=== PATIENT | male | born 1980 | race Caucasian/White ===

== ENCOUNTER → 2018-08-22 08:13 | Outpatient (CLI) | payer OTHER, SELFPAY ==
--- NOTE | 2018-08-22 08:44 | RAD_ITS ---
STUDY: X-RAY - RIGHT HAND, ATTENTION THIRD FINGER REASON FOR EXAM: Male, 38 years old. Mass of the distal end of the third finger TECHNIQUE: 3 view(s) of the finger were obtained. COMPARISON: None. FINDINGS: Normal metacarpal head. Normal metacarpophalangeal joint. Normal proximal phalanx. Normal middle phalanx. Normal distal phalanx. Normal proximal interphalangeal joint. 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 Mild soft tissue swelling locally along the dorsal edge of the distal third finger at the level of the DIP joint. No associated osseous erosion. RAD/Finger(s) Min 2 Views IMPRESSION: Distal, dorsal third finger localized soft tissue swelling at the DIP joint. No osseous erosion or bony erosions. Electronically Signed: Maurizio Calloway MD at 23:35 EST , Service support ,
[2018-08-22 09:16] LABS: Absolute Lymphocyte Count 1.88 X10^3/ul (0.83-4.51); Absolute Neutrophil Count 1.6 X10^3/uL (2.0-7.7); Basophil# 0.02 X10^3/uL; Basophil% 0.5 % (0-1); Eosinophil# 0.23 X10^3/uL; Eosinophils% 5.6 % (0-5); Hematocrit 44.7 % (40-54); Hemoglobin 14.9 g/dl (13.0-16.5); Lymphocyte # 1.88 X10^3/ul (4.0); Lymphocyte % 45.4 % (19-41); Mean Corp Hgb Conc 33.3 g/gl (32-36); Mean Corpuscular Hgb 30.7 pg (27.0-32.0); Mean Corpuscular Volume 92.2 fL (80-94); Mean Platelet Vol. 10.2 fl (6.2-12.0); Monocyte# 0.42 X10^3/uL; Monocyte% 10.1 % (0-10); Neutrophil # 1.58 X10^3/uL (2.7-7.7); Neutrophil % 38.2 % (47-70); Platelet Count 284 K/mm3 (150-450); RBC Distribution Width CV 12.4 % (11.6-14.6); RBC Distribution Width SD 41.7 fl (35.1-43.9); Red Blood Count 4.85 M/mm3 (4.6-6.2); White Blood Count 4.1 K/mm3 (4.4-11.0)
[2018-08-22 09:19] LABS: POSITIVE COUNT NO; POSITIVE DIFFERENTIAL NO; POSITIVE MORPHOLOGY NO
[2018-08-22 09:33] LABS: Hemoglobin A1c 5.9 % (4.2-6.3)
[2018-08-22 09:47] LABS: ALB/GLOB Ratio 1.1 RATIO (0.9-2.4); AST(SGOT) 21 U/L (15-37); Alanine Aminotransfer ALT/SGPT 37 U/L (16-61); Albumin, Serum 3.7 g/dL (3.2-5.0); Alkaline Phosphatase 64 U/L (45-117); Anion Gap 9 (5-15); BUN 12 mg/dL (7-18); BUN/Creat Ratio 10.4 RATIO (10-20); Calcium,Total 8.6 mg/dL (8.5-10.1); Chloride 106 mmol/L (98-107); Cholesterol 222 mg/dL (200); Creatinine, Serum 1.15 mg/dL (0.70-1.30); EST Glomerular Filtration Rate 75 mL/min (>60); Est Glom Filt Rate - Afr Amer 91 mL/min (>60); Globulin 3.4 g/dL (2.2-4.2); Glucose 94 mg/dL (74-106); High Density Lipoprotein 36 mg/dL; Potassium 4.5 mmol/L (3.5-5.1); Protein, Total 7.1 g/dL (6.4-8.2); Sodium Level 143 mmol/L (136-145); T4 Free Direct 0.76 ng/dL (0.76-1.46); Thyroid Stim Hormone (TSH) 1.85 uIU/mL (0.358-3.74); Triglycerides 222 mg/dL; Very Low Density Lipoprotein 44 mg/dL (5-40)
[2018-08-24 08:46] LABS: Thyroid Peroxidase AB 9 IU/mL (0-34)
== END ==
DX: Z00.00 Encounter for general adult medical examination without abnormal findings (principal); R22.31 Localized swelling, mass and lump, right upper limb; R61 Generalized hyperhidrosis; Z13.1 Encounter for screening for diabetes mellitus
CPT/HCPCS: 36415; 73140; 80053; 80061; 83036; 84439; 84443; 85025; 86376

== ENCOUNTER → 2019-05-08 07:01 | Outpatient (CLI) | payer OTHER, SELFPAY ==
[2019-05-08 08:06] LABS: ALB/GLOB Ratio 1.2 RATIO (0.9-2.4); AST(SGOT) 21 U/L (15-37); Alanine Aminotransfer ALT/SGPT 33 U/L (16-61); Albumin, Serum 3.9 g/dL (3.2-5.0); Alkaline Phosphatase 53 U/L (45-117); Anion Gap 5 (5-15); BUN 16 mg/dL (7-18); BUN/Creat Ratio 15.2 RATIO (10-20); Calcium,Total 8.7 mg/dL (8.5-10.1); Chloride 108 mmol/L (98-107); Cholesterol 225 mg/dL (200); Creatinine, Serum 1.05 mg/dL (0.70-1.30); EST Glomerular Filtration Rate 83 mL/min (>60); Est Glom Filt Rate - Afr Amer 100 mL/min (>60); Globulin 3.2 g/dL (2.2-4.2); Glucose 102 mg/dL (74-106); High Density Lipoprotein 41 mg/dL; Potassium 4.1 mmol/L (3.5-5.1); Protein, Total 7.1 g/dL (6.4-8.2); Sodium Level 140 mmol/L (136-145); Triglycerides 265 mg/dL; Very Low Density Lipoprotein 53 mg/dL (5-40)
== END ==
DX: E78.5 Hyperlipidemia, unspecified (principal)
CPT/HCPCS: 36415; 80053; 80061

== ENCOUNTER → 2019-07-19 16:10 | Outpatient (CLI) | payer OTHER, SELFPAY | PROVIDERS: Referring Provider Otolaryngology Otolaryngology/Facial Plastic Surgery; Visit Provider Otolaryngology Otolaryngology/Facial Plastic Surgery | DX: J32.9 Chronic sinusitis, unspecified (principal) | CPT/HCPCS: 87070; 87077; 87186; 87205 ==

== ENCOUNTER → 2023-01-02 | Outpatient (CLI) | payer OTHER, SELFPAY ==
[2023-01-02 07:59] LABS: Absolute Lymphocyte Count 1.96 X10^3/uL (0.83-4.51); Absolute Neutrophil Count 2.5 X10^3/uL (2.0-7.7); Basophil# 0.04 X10^3/uL; Basophil% 0.7 % (0-1); Eosinophil# 0.27 X10^3/uL; Hematocrit 44.3 % (40-54); Hemoglobin 14.8 g/dL (13.0-16.5); Lymphocyte # 1.96 X10^3/ul (0.83-4.51); Lymphocyte % 36.2 % (19-41); Mean Corp Hgb Conc 33.4 g/dL (32-36); Mean Corpuscular Hgb 31.2 pg (27.0-32.0); Mean Corpuscular Volume 93.3 fL (80-94); Mean Platelet Vol. 10.1 fl (6.2-12.0); Monocyte% 11.1 % (0-10); NRBC Flagged by Analyzer 0 % (0-5); Neutrophil # 2.52 X10^3/uL (2.7-7.7); Neutrophil % 46.4 % (47-70); Platelet Count 280 K/mm3 (150-450); RBC Distribution Width CV 12.4 % (11.6-14.6); RBC Distribution Width SD 42.4 fl (35.1-43.9); Red Blood Count 4.75 M/mm3 (4.6-6.2); White Blood Count 5.4 K/mm3 (4.4-11.0)
[2023-01-02 08:43] LABS: ALB/GLOB Ratio 1.1 RATIO (0.9-2.4); AST(SGOT) 26 U/L (15-37); Alanine Aminotransfer ALT/SGPT 59 U/L (16-61); Albumin, Serum 3.7 g/dL (3.2-5.0); Alkaline Phosphatase 64 U/L (45-117); Anion Gap 6 (5-15); BUN 13 mg/dL (7-18); BUN/Creat Ratio 12.5 RATIO (10-20); Calcium,Total 8.7 mg/dL (8.5-10.1); Chloride 106 mmol/L (98-107); Cholesterol 224 mg/dL (200); Creatinine, Serum 1.04 mg/dL (0.70-1.30); EST Glomerular Filtration Rate 82 mL/min (>60); Est Glom Filt Rate - Afr Amer 100 mL/min (>60); Globulin 3.5 g/dL (2.2-4.2); Glucose 112 mg/dL (74-106); High Density Lipoprotein 39 mg/dL; Potassium 3.9 mmol/L (3.5-5.1); Protein, Total 7.2 g/dL (6.4-8.2); Sodium Level 139 mmol/L (136-145); T4 Total, Thyroxin 8.6 ug/dL (4.5-12.1); Thyroid Stim Hormone (TSH) 2.54 uIU/mL (0.358-3.74); Triglycerides 186 mg/dL; Very Low Density Lipoprotein 37 mg/dL (5-40)
[2023-01-02 09:23] LABS: Hemoglobin A1c 5.7 % (3.8-5.6)
== END | disposition home or self-care (01) ==
PROVIDERS: PCP Nurse Practitioner Adult Health; Referring Provider Nurse Practitioner Adult Health; Visit Provider Nurse Practitioner Adult Health
DX: Z00.00 Encounter for general adult medical examination without abnormal findings (principal)
CPT/HCPCS: 36415; 80053; 80061; 83036; 83525; 84153; 84436; 84443; 85025; G0103

== ENCOUNTER → 2023-10-11 | Outpatient (CLI) | payer OTHER, SELFPAY ==
--- OUTSIDE RECORDS SUMMARY | 2023-10-11 07:11 | XMS RPT_ITS | CCD ---
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 Ge Potter Primary Care Unav ailable Gino Krueger CNP Primary Care Provider [phone] IGNO KRUEGER Primary Care Unavailable BRIANNA SHERWOOD Referring Unavailable BRIANNA SHERWOOD Attending Unavailable BRIANNA SHERWOOD Referring Unavailable BRIANNA SHERWOOD Attending Unavailable GINO KRUEGER Primary Care Unavailable Gino Krueger Attending Unavailable Gino Krueger Attending Unavailable Gino Krueger Attending Unavailable Gino Krueger Attending Unavailable Gino Krueger Attending Unavailable Allergies Allergy Classification Reported Allergen(s) Allergy Type Date of Onset Reaction(s) Facility (4 sources) Penicillin; Translations: [penicillin] Drug Allergy Unknown (qualifier value) [facility] (4 sources) Sulfonamides (Antibiotic); Translations: [sulfa drugs] Drug allergy Unknown (qualifier value) [facility] (2 sources) Penicillins; Translations: [PENICILLINS] Drug Allergy 6 Unknown [facility] (2 sources) Sulfonamides (Antibiotic); Translations: [SULFA (SULFONAMIDE ANTIBIOTICS)] Drug Allergy 6 Unknown [facility] Medications Current Medications Medication Drug Class(es) Dates Sig (Normalized) Sig (Original) lisinopril 10 mg oral tablet (1 source) Angiotensin Converting Enzyme Inhibitor Start: 01-13-2023 take 1 tablet by mouth once daily lisinopril 10 mg Tab 10 mg = 1 tab(s), Oral, Daily, # 30 tab(s), Refills(s) 2, Pharmacy: [id number], 180, cm, 01/13/23 18:26:00 EDT, Height/Length Dosing, 130.8, kg, 01/13/23 18:26:00 EDT, Weight Dosing Start Date: 01/13/23 Status: Ordered losartan potassium 25 mg oral tablet (3 sources) Angiotensin 2 Receptor Michelle Start: 10-06-2023 take 1 tablet by mouth once daily losartan 25 mg Tab 25 mg = 1 tab(s), Oral, Daily, Dry cough with NAEL, # 30 tab(s), Refills(s) 5, Pharmacy: [id number], 180, cm, 10/06/23 18:18:00 EDT, Height/Length Dosing, 131.2, kg, 10/06/23 18:18:00 EDT, Weight Dosing Start Date: 10/06/23 Status: Ordered Completed/Discontinued Medications Medication Drug Class(es) Dates Sig (Normalized) Sig (Original) hypromellose 0.003 mg/mg ophthalmic gel (1 source) Start: 09-23-2020 apply 1 drop(s) into the eye(s) four times daily Artificial Tear, Hypromellose, (SYSTANE GEL) 0.3 % gel Use 1 Drop in the right eye four times daily. 0 09/23/2020 Active Problems Active Problems Problem Classification Problem Date Documented Date Episodic/Chronic Adjustment disorders (1 source) Stress and adjustment reaction; Translations: [Reaction to severe stress, unspecified] Onset: 12-31-2022 Chronic Administrative/social admission (7 sources) Patient encounter status; Translations: [Persons encountering health services in other specified circumstances] Onset: 12-31-2022 Episodic Blindness and vision defects (2 sources) Severe myopia; Translations: [Myopia, bilateral] Onset: 09-23-2020 04-02-2023 Episodic Diabetes mellitus without complication (4 sources) Prediabetes; Translations: [Prediabetes] Onset: 01-13-2023 Episodic Disorders of lipid metabolism (4 sources) Hyperlipidemia; Translations: [Hyperlipidemia, unspecified] Onset: 01-13-2023 Chronic Essential hypertension (4 sources) Essential hypertension; Translations: [Essential (primary) hypertension] Onset: 01-13-2023 Chronic Genitourinary symptoms and ill-defined conditions (7 sources) Increased frequency of urination; Translations: [Frequency of micturition] Onset: 12-31-2022 Episodic Osteoarthritis (1 source) 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 Other circulatory disease (2 sources) Elevated blood-pressure reading without diagnosis of hypertension; Translations: [Elevated blood-pressure reading, without diagnosis of hypertension] Onset: 12-31-2022 Episodic Other circulatory disease (3 sources) Elevated blood pressure 12-31-2022 Episodic Other injuries and conditions due to external causes (1 source) Foreign body in right cornea; Translations: [Foreign body in cornea, right eye, initial encounter] 04-02-2023 Episodic Other lower respiratory disease (5 sources) Snoring; Translations: [Snoring] Onset: 12-31-2022 Episodic Other non-traumatic joint disorders (2 sources) Pain of right elbow joint; Translations: [Pain in right elbow] Onset: 12-31-2022 Episodic Other non-traumatic joint disorders (3 sources) Pain in elbow 12-31-2022 Episodic Other nutritional; endocrine; and metabolic disorders (3 sources) Body mass index 40+ - severely obese; Translations: [Body mass index (BMI) 40.0-44.9, adult] Onset: 12-31-2022 Chronic Other nutritional; endocrine; and metabolic disorders (6 sources) Obesity; Translations: [Obesity, unspecified] Onset: 12-31-2022 Chronic Other nutritional; endocrine; and metabolic disorders (1 source) Abnormal weight gain; Translations: [Abnormal weight gain] Onset: 12-31-2022 Episodic Other nutritional; endocrine; and metabolic disorders (3 sources) Weight gain 12-31-2022 Episodic Other upper respiratory disease (4 sources) Allergic rhinitis; Translations: [Allergic rhinitis, unspecified] Onset: 12-31-2022 Chronic Unclassified (5 sources) Patient encounter status 12-31-2022 Past or Other Problems Problem Classification Problem Date Documented Da te Episodic/Chronic Superficial injury; contusion (1 source) Abrasion of cornea of right eye; Translations: [Injury of conjunctiva and corneal abrasion without foreign body, right eye, initial encounter] Onset: 09-23-2020 09-23-2020 Episodic Results Test Name Value Interpretation Reference Range Facil ity Vital Signs Date Time Vital Sign Value Performing Clinician Faci lity 10-06-2023 18:16-0400 Blood Pressure Location Gino Riedy [facility] 10-06-2023 18:16-0400 Diastolic blood pressure 80 mm[Hg] Gino Riedy [facility] 10-06-2023 18:16-0400 Heart rate 85 /min Gino Riedy [facility] 10-06-2023 18:16-0400 SaO2% (BldA) [Mass fraction] 93 % Gino Riedy [facility] 10-06-2023 18:16-0400 Systolic blood pressure 126 mm[Hg] Gino Riedy [facility] 01-13-2023 18:23-0400 Blood Pressure Location Gino Riedy [facility] 01-13-2023 18:23-0400 Diastolic blood pressure 88 mm[Hg] Gino Riedy [facility] 01-13-2023 18:23-0400 Heart rate 84 /min Gino Riedy [facility] 01-13-2023 18:23-0400 SaO2% (BldA) [Mass fraction] 96 % Gino Riedy [facility] 01-13-2023 18:23-0400 Systolic blood pressure 164 mm[Hg] Gino Riedy [facility] 12-31-2022 09:16-0400 Diastolic blood pressure 86 mm[Hg] Gino Riedy [facility] 12-31-2022 09:16-0400 Mean blood pressure 108 mm[Hg] Gino Riedy [facility] 12-31-2022 09:16-0400 Systolic blood pressure 152 mm[Hg] Gino Riedy [facility] 12-31-2022 08:26-0400 Blood Pressure Location Gino Riedy [facility] 12-31-2022 08:26-0400 Diastolic blood pressure 92 mm[Hg] Gino Riedy [facility] 12-31-2022 08:26-0400 Heart rate 78 /min Gino Riedy [facility] 12-31-2022 08:26-0400 SaO2% (BldA) [Mass fraction] 94 % Gino Riedy [facility] 12-31-2022 08:26-0400 Systolic blood pressure 166 mm[Hg] Gino Riedy [facility] Encounters Encounter Date Encounter Type Care Provider Facility Start: 11-10-2023 ambulatory Gino D Riedy Facilit y:[facility] Start: 10-06-2023 End: 10-07-2023 ambulatory Gino D Riedy Facility:[facility] Start: 10-06-2023 End: 10-06-2023 Patient encounter procedure Gino D Riedy [facility] Start: 04-04-2023 End: 04-04-2023 ambulatory GINO RIEDY Facility:[facility] Start: 04-02-2023 End: 04-02-2023 ambulatory BRIANNA SHERWOOD Facility:[facility] Start: 04-02-2023 End: 04-02-2023 Patient encounter procedure Brianna Sherwood MD Work Phone: Ophthalmology Procedures Date Procedure Procedure Detail Performing Clinician Start: 04-02-2023 Rmvl fb xtrnl eye co rneal w/slit lamp Brianna Sherwood MD Work Phone: Start: 04-02-2023 History of laser ass isted in situ keratomileusis Hx of LASIK Brianna Sherwood MD Work Phone: Appendectomy Gino Krueger Hernia repair Gino Krueger Tonsillectomy Gino Krueger Plan of Treatment Date Care Activity Detail Author Start: 03-28-2023 Influenza vaccination INFLUENZA (#1) [facility] Start: 07-28-2022 DEPRESSION ASSESSMENT DEPRESSION ASS ESSMENT [facility] Start: 2013 LIPID SCREEN LIPID SCREEN [facility] Start: 1997 Urine microalbumin profile DTAP,TDAP ,TD (1 - Tdap) [facility] Start: 1996 HEPATITIS C SCREENING HEPATITIS C SC REENING [facility] Start: 1996 HIV SCREENING HIV SCREENING [facility] Start: 1978 COVID-19 VACCINE (#1) COVID-19 VACCI NE (#1) [facility] Start: 1978 HEPATITIS B (1 of 3 - 3-dose series) HEPATITIS B (1 of 3 - 3-dose series) [facility] Immunizations Immunization Date Immunization Notes Care Provider Fa ashley 12-11-1983 DTaP, unspecified formulation Gino Tyron [facility] 12-11-1983 poliovirus vaccine, unspecified formulation Gino Riedy [facility] 11-10-1980 poliovirus vaccine, unspecified formulation Gino Riedy [facility] 09-09-1979 measles, mumps and rubella virus vaccine Gino Riedy [facility] 01-26-1979 DTaP, unspecified formulation Gino Riedy [facility] 1978 DTaP, unspecified formulation Gino Riedy [facility] 1978 poliovirus vaccine, unspecified formulation Gino Riedy [facility] 1978 DTaP, unspecified formulation Gino Riedy [facility] 1978 poliovirus vaccine, unspecified formulation Gino Riedy [facility] Payers Date Payer Category Payer Private Health Insurance [facility] [employer] [id number] 2019-Present [phone] [address] [place] [address] HMO [id number] 2019 Unknown [id number] 1978 Unknown [id number] 1978 Unknown [id number] 1978 Unknown [id number] 1978 Unknown [id number] 1978 Unknown [id number] 1978 Unknown [id number] Self-pay Social History Date Type Detail Facility Start: 12-31-2022 End: 10-06-2023 Tobacco smoking status Never smoked tobacco (finding) [facility] Tobacco smoking status Never [facility] Start: 04-02-2023 Sex Assigned At Male F [facility] Start: 04-02-2023 Tobacco use and exposure Smokeless tobacco non-user [facility] Start: 04-02-2023 Alcohol intake Current drinke r of alcohol (finding) [facility] Start: 04-02-2023 History of Social function [facility] Start: 09-23-2020 Alcohol [facility] Start: 1980 Sex Assigned At Not on file [facility] Functional Status Date Assessment Result Facility 10-06-2023 Functional Status N/A [facility] 01-13-2023 Functional Status N/A [facility] 12-31-2022 Functional Status N/A [facility] Clinical Notes 12-26-2022 to 10-06-2023 Brianna Sherwood MD - 04/02/2023 4:47 PM EDTLaboratoryLaboratoryLaboratory Note Date & Type Note Facility 10-06-2023 Hospital Discharge instructions Patient Education 10/06/2023 18:19:42 DASH Eating Plan DASH Eating Plan DASH stands for Dietary Approaches to Stop Hypertension. The DASH eating plan is a healthy eating plan that has been shown to: Reduce high blood pressure (hypertension). Reduce your risk for type 2 diabetes, heart disease, and stroke. Help with weight loss. What are tips for following this plan? Reading food labels Check food labels for the amount of salt (sodium) per serving. Choose foods with less than 5 percent of the Daily Value of sodium. Generally, foods with less than 300 milligrams (mg) of sodium per serving fit into this eating plan. To find whole grains, look for the word whole as the first word in the ingredient list. Shopping Buy products labeled as low-sodium or no salt added. Buy fresh foods. Avoid canned foods and pre-made or frozen meals. Cooking Avoid adding salt when cooking. Use salt-free seasonings or herbs instead of table salt or sea salt. Check with your health care provider or pharmacist before using salt substitutes. Do not parsons foods. Cook foods using healthy methods such as baking, boiling, grilling, roasting, and broiling instead. Cook with heart-healthy oils, such as olive, canola, avocado, soybean, or sunflower oil. Meal planning Eat a balanced diet that includes: ?4 or more servings of fruits and 4 or more servings of vegetables each day. Try to fill one-half of your plate with fruits and vegetables. ?6 8 servings of whole grains each day. ?Less than 6 oz (170 g) of lean meat, poultry, or fish each day. A 3-oz (85-g) serving of meat is about the same size as a deck of cards. One egg equals 1 oz (28 g). ?2 3 servings of low-fat dairy each day. One serving is 1 cup (237 mL). ?1 serving of nuts, seeds, or beans 5 times each week. ?2 3 servings of heart-healthy fats. Healthy fats called omega-3 fatty acids are found in foods such as walnuts, flaxseeds, fortified milks, and eggs. These fats are also found in cold-water fish, such as sardines, salmon, and mackerel. Limit how much you eat of: ?Canned or prepackaged foods. ?Food that is high in trans fat, such as some fried foods. ?Food that is high in saturated fat, such as fatty meat. ?Desserts and other sweets, sugary drinks, and other foods with added sugar. ?Full-fat dairy products. Do not salt foods before eating. Do not eat more than 4 egg yolks a week. Try to eat at least 2 vegetarian meals a week. Eat more home-cooked food and less restaurant, buffet, and fast food. Lifestyle When eating at a restaurant, ask that your food be prepared with less salt or no salt, if possible. If you drink alcohol: ?Limit how much you use to: ?0 1 drink a day for women who are not . ?0 2 drinks a day for men. ?Be aware of how much alcohol is in your drink. In the [place] one drink equals one 12 oz bottle of beer (355 mL), one 5 oz glass of wine (148 mL), or one 1 oz glass of hard liquor (44 mL). General information Avoid eating more than 2,300 mg of salt a day. If you have hypertension, you may need to reduce your sodium intake to 1,500 mg a day. Work with your health care provider to maintain a healthy body weight or to lose weight. Ask what an ideal weight is for you. Get at least 30 minutes of exercise that causes your heart to beat faster (aerobic exercise) most days of the week. Activities may include walking, swimming, or biking. Work with your health care provider or dietitian to adjust your eating plan to your individual calorie needs. What foods should I eat? Fruits All fresh, dried, or frozen fruit. Canned fruit in natural juice (without added sugar). Vegetables Fresh or frozen vegetables (raw, steamed, roasted, or grilled). Low-sodium or reduced-sodium tomato and vegetable juice. Low-sodium or reduced-sodium tomato sauce and tomato paste. Low-sodium or reduced-sodium canned vegetables. Grains Whole-grain or whole-wheat bread. Whole-grain or whole-wheat pasta. Brown rice. Oatmeal. Quinoa. Bulgur. Whole-grain and low-sodium cereals. Aleta bread. Low-fat, low-sodium crackers. Whole-wheat flour tortillas. Meats and other proteins Skinless chicken or turkey. Ground chicken or turkey. Pork with fat trimmed off. Fish and seafood. Egg whites. Dried beans, peas, or lentils. Unsalted nuts, nut butters, and seeds. Unsalted canned beans. Lean cuts of beef with fat trimmed off. Low-sodium, lean precooked or cured meat, such as sausages or meat loaves. Dairy Low-fat (1%) or fat-free (skim) milk. Reduced-fat, low-fat, or fat-free cheeses. Nonfat, low-sodium ricotta or cottage cheese. Low-fat or nonfat yogurt. Low-fat, low-sodium cheese. Fats and oils Soft margarine without trans fats. Vegetable oil. Reduced-fat, low-fat, or light mayonnaise and salad dressings (reduced-sodium). Canola, safflower, olive, avocado, soybean, and sunflower oils. Avocado. Seasonings and condiments Herbs. Spices. Seasoning mixes without salt. Other foods Unsalted popcorn and pretzels. Fat-free sweets. The items listed above may not be a complete list of foods and beverages you can eat. Contact a dietitian for more information. What foods should I avoid? Fruits Canned fruit in a light or heavy syrup. Fried fruit. Fruit in cream or butter sauce. Vegetables Creamed or fried vegetables. Vegetables in a cheese sauce. Regular canned vegetables (not low-sodium or reduced-sodium). Regular canned tomato sauce and paste (not low-sodium or reduced-sodium). Regular tomato and vegetable juice (not low-sodium or reduced-sodium). Pickles. Olives. Grains Baked goods made with fat, such as croissants, muffins, or some breads. Dry pasta or rice meal packs. Meats and other proteins Fatty cuts of meat. Ribs. Fried meat. Thomas. Bologna, salami, and other precooked or cured meats, such as sausages or meat loaves. Fat from the back of a pig (fatback). Bratwurst. Salted nuts and seeds. Canned beans with added salt. Canned or smoked fish. Whole eggs or egg yolks. Chicken or turkey with skin. Dairy Whole or 2% milk, cream, and [id number]. Whole or full-fat cream cheese. Whole-fat or sweetened yogurt. Full-fat cheese. Nondairy creamers. Whipped toppings. Processed cheese and cheese spreads. Fats and oils Butter. Stick margarine. Lard. Shortening. Ghee. Thomas fat. Tropical oils, such as coconut, palm kernel, or palm oil. Seasonings and condiments Onion salt, garlic salt, seasoned salt, table salt, and sea salt. Worcestershire sauce. Tartar sauce. Barbecue sauce. Teriyaki sauce. Soy sauce, including reduced-sodium. Steak sauce. Canned and packaged gravies. Fish sauce. Oyster sauce. Cocktail sauce. Store-bought horseradish. Ketchup. Mustard. Meat flavorings and tenderizers. Bouillon cubes. Hot sauces. Pre-made or packaged marinades. Pre-made or packaged taco seasonings. Relishes. Regular salad dressings. Other foods Salted popcorn and pretzels. The items listed above may not be a complete list of foods and beverages you should avoid. Contact a dietitian for more information. Where to find more information National Heart, Lung, and Blood [place]: www.nhlbi.nih.gov [place] [employer]: www.heart.org Academy of Nutrition and Dietetics: www.eatright.org National Kidney Foundation: www.kidney.org Summary The DASH eating plan is a healthy eating plan that has been shown to reduce high blood pressure (hypertension). It may also reduce your risk for type 2 diabetes, heart disease, and stroke. When on the DASH eating plan, aim to eat more fresh fruits and vegetables, whole grains, lean proteins, low-fat dairy, and heart-healthy fats. With the DASH eating plan, you should limit salt (sodium) intake to 2,300 mg a day. If you have hypertension, you may need to reduce your sodium intake to 1,500 mg a day. Work with your health care provider or dietitian to adjust your eating plan to your individual calorie needs. This information is not intended to replace advice given to you by your health care provider. Make sure you discuss any questions you have with your health care provider. Document Revised: 06/16/2020 Document Reviewed: 06/16/2020 Page [employer] Patient Education 2022 [email or web address]. 10/06/2023 18:19:37 BMI for Adults BMI for Adults What is BMI? Body mass index (BMI) is a number that is calculated from a person's weight and height. BMI can help estimate how much of a person's weight is composed of fat. BMI does not measure body fat directly. Rather, it is an alternative to procedures that directly measure body fat, which can be difficult and expensive. BMI can help identify people who may be at higher risk for certain medical problems. What are BMI measurements used for? BMI is used as a screening tool to identify possible weight problems. It helps determine whether a person is obese, overweight, a healthy weight, or underweight. BMI is useful for: Identifying a weight problem that may be related to a medical condition or may increase the risk for medical problems. Promoting changes, such as changes in diet and exercise, to help reach a healthy weight. BMI screening can be repeated to see if these changes are working. How is BMI calculated? BMI involves measuring your weight in relation to your height. Both height and weight are measured, and the BMI is calculated from those numbers. This can be done either in [place] ([place] or metric measurements. Note that charts and online BMI calculators are available to help you find your BMI quickly and easily without having to do these calculations yourself. To calculate your BMI in [place] ([place] measurements: 1.Measure your weight in pounds (lb). 2.Multiply the number of pounds by 703. For example, for a person who weighs 180 lb, multiply that number by 703, which equals 126,540. 3.Measure your height in inches. Then multiply that number by itself to get a measurement called inches squared. For example, for a person who is 70 inches tall, the inches squared measurement is 70 inches x 70 inches, which equals 4,900 inches squared. 4.Divide the total from step 2 (number of lb x 703) by the total from step 3 (inches squared): 126,540 4,900 = 25.8. This is your BMI. To calculate your BMI in metric measurements: 1.Measure your weight in kilograms (kg). 2.Measure your height in meters (m). Then multiply that number by itself to get a measurement called meters squared. For example, for a person who is 1.75 m tall, the meters squared measurement is 1.75 m x 1.75 m, which is equal to 3.1 meters squared. 3.Divide the number of kilograms (your weight) by the meters squared number. In this example: 70 3.1 = 22.6. This is your BMI. What do the results mean? BMI charts are used to identify whether you are underweight, normal weight, overweight, or obese. The following guidelines will be used: Underweight: BMI less than 18.5. Normal weight: BMI between 18.5 and 24.9. Overweight: BMI between 25 and 29.9. Obese: BMI of 30 or above. Keep these notes in mind: Weight includes both fat and muscle, so someone with a muscular build, such as an athlete, may have a BMI that is higher than 24.9. In cases like these, BMI is not an accurate measure of body fat. To determine if excess body fat is the cause of a BMI of 25 or higher, further assessments may need to be done by a health care provider. BMI is usually interpreted in the same way for men and women. Where to find more information For more information about BMI, including tools to quickly calculate your BMI, go to these websites: Centers for Disease Control and Prevention: www.cdc.gov [place] [employer]: www.heart.org National Heart, Lung, and Blood [place]: www.nhlbi.nih.gov Summary Body mass index (BMI) is a number that is calculated from a person's weight and height. BMI may help estimate how much of a person's weight is composed of fat. BMI can help identify those who may be at higher risk for certain medical problems. BMI can be measured using [place] measurements or metric measurements. BMI charts are used to identify whether you are underweight, normal weight, overweight, or obese. This information is not intended to replace advice given to you by your health care provider. Make sure you discuss any questions you have with your health care provider. Document Revised: 04/05/2020 Document Reviewed: 02/11/2020 Page [employer] Patient Education 2022 [email or web address]. 10/06/2023 18:19:36 Hypertension, Adult Hypertension, Adult High blood pressure (hypertension) is when the force of blood pumping through the arteries is too strong. The arteries are the blood vessels that carry blood from the heart throughout the body. Hypertension forces the heart to work harder to pump blood and may cause arteries to become narrow or stiff. Untreated or uncontrolled hypertension can lead to a heart attack, heart failure, a stroke, kidney disease, and other problems. A blood pressure reading consists of a higher number over a lower number. Ideally, your blood pressure should be below 120/80. The first ( top ) number is called the systolic pressure. It is a measure of the pressure in your arteries as your heart beats. The second ( bottom ) number is called the diastolic pressure. It is a measure of the pressure in your arteries as the heart relaxes. What are the causes? The exact cause of this condition is not known. There are some conditions that result in high blood pressure. What increases the risk? Certain factors may make you more likely to develop high blood pressure. Some of these risk factors are under your control, including: Smoking. Not getting enough exercise or physical activity. Being overweight. Having too much fat, sugar, calories, or salt (sodium) in your diet. Drinking too much alcohol. Other risk factors include: Having a personal history of heart disease, diabetes, high cholesterol, or kidney disease. Stress. Having a family history of high blood pressure and high cholesterol. Having obstructive sleep apnea. Age. The risk increases with age. What are the signs or symptoms? High blood pressure may not cause symptoms. Very high blood pressure (hypertensive crisis) may cause: Headache. Fast or irregular heartbeats (palpitations). Shortness of breath. Nosebleed. Nausea and vomiting. Vision changes. Severe chest pain, dizziness, and seizures. How is this diagnosed? This condition is diagnosed by measuring your blood pressure while you are seated, with your arm resting on a flat surface, your legs uncrossed, and your feet flat on the floor. The cuff of the blood pressure monitor will be placed directly against the skin of your upper arm at the level of your heart. Blood pressure should be measured at least twice using the same arm. Certain conditions can cause a difference in blood pressure between your right and left arms. If you have a high blood pressure reading during one visit or you have normal blood pressure with other risk factors, you may be asked to: Return on a different day to have your blood pressure checked again. Monitor your blood pressure at home for 1 week or longer. If you are diagnosed with hypertension, you may have other blood or imaging tests to help your health care provider understand your overall risk for other conditions. How is this treated? This condition is treated by making healthy lifestyle changes, such as eating healthy foods, exercising more, and reducing your alcohol intake. You may be referred for counseling on a healthy diet and physical activity. Your health care provider may prescribe medicine if lifestyle changes are not enough to get your blood pressure under control and if: Your systolic blood pressure is above 130. Your diastolic blood pressure is above 80. Your personal target blood pressure may vary depending on your medical conditions, your age, and other factors. Follow these instructions at home: Eating and drinking Eat a diet that is high in fiber and potassium, and low in sodium, added sugar, and fat. An example of this eating plan is called the DASH diet. DASH stands for Dietary Approaches to Stop Hypertension. To eat this way: ?Eat plenty of fresh fruits and vegetables. Try to fill one half of your plate at each meal with fruits and vegetables. ?Eat whole grains, such as whole-wheat pasta, brown rice, or whole-grain bread. Fill about one fourth of your plate with whole grains. ?Eat or drink low-fat dairy products, such as skim milk or low-fat yogurt. ?Avoid fatty cuts of meat, processed or cured meats, and poultry with skin. Fill about one fourth of your plate with lean proteins, such as fish, chicken without skin, beans, eggs, or tofu. ?Avoid pre-made and processed foods. These tend to be higher in sodium, added sugar, and fat. Reduce your daily sodium intake. Many people with hypertension should eat less than 1,500 mg of sodium a day. Do not drink alcohol if: ?Your health care provider tells you not to drink. ?You are , may be , or are planning to become . If you drink alcohol: ?Limit how much you have to: ?0 1 drink a day for women. ?0 2 drinks a day for men. ?Know how much alcohol is in your drink. In the [place] one drink equals one 12 oz bottle of beer (355 mL), one 5 oz glass of wine (148 mL), or one 1 oz glass of hard liquor (44 mL). Lifestyle Work with your health care provider to maintain a healthy body weight or to lose weight. Ask what an ideal weight is for you. Get at least 30 minutes of exercise that causes your heart to beat faster (aerobic exercise) most days of the week. Activities may include walking, swimming, or biking. Include exercise to strengthen your muscles (resistance exercise), such as Pilates or lifting weights, as part of your weekly exercise routine. Try to do these types of exercises for 30 minutes at least 3 days a week. Do not use any products that contain nicotine or tobacco. These products include cigarettes, chewing tobacco, and vaping devices, such as e-cigarettes. If you need help quitting, ask your health care provider. Monitor your blood pressure at home as told by your health care provider. Keep all follow-up visits. This is important. Medicines Take nejr-oah-kiuujjq and prescription medicines only as told by your health care provider. Follow directions carefully. Blood pressure medicines must be taken as prescribed. Do not skip doses of blood pressure medicine. Doing this puts you at risk for problems and can make the medicine less effective. Ask your health care provider about side effects or reactions to medicines that you should watch for. Contact a health care provider if you: Think you are having a reaction to a medicine you are taking. Have headaches that keep coming back (recurring). Feel dizzy. Have swelling in your ankles. Have trouble with your vision. Get help right away if you: Develop a severe headache or confusion. Have unusual weakness or numbness. Feel faint. Have severe pain in your chest or abdomen. Vomit repeatedly. Have trouble breathing. These symptoms may be an emergency. Get help right away. Call 911. Do not wait to see if the symptoms will go away. Do not drive yourself to the hospital. Summary Hypertension is when the force of blood pumping through your arteries is too strong. If this condition is not controlled, it may put you at risk for serious complications. Your personal target blood pressure may vary depending on your medical conditions, your age, and other factors. For most people, a normal blood pressure is less than 120/80. Hypertension is treated with lifestyle changes, medicines, or a combination of both. Lifestyle changes include losing weight, eating a healthy, low-sodium diet, exercising more, and limiting alcohol. This information is not intended to replace advice given to you by your health care provider. Make sure you discuss any questions you have with your health care provider. Document Revised: 05/21/2022 Document Reviewed: 05/21/2022 Page [employer] Patient Education 2022 [employer]. Follow Up Care 08/19/2023 16:25:05 With:Gino Krueger CNP Address: [address] [place] [phone]- [phone] When:Within 1 Month(s) Comments:chronic check- review labs and weight managementblanco [place] 15 4pm [facility] [place] 04-04-2023 Note HNO ID: [id number] Author: Brianna Sherwood MD Service: ? Author Type: Physician Type: Progress Notes Filed: 04/04/2023 4:30 PM Note Text: ASSESSMENT/PLAN: 1. Foreign body of right cornea, initial encounter - ICD9: 930.0, E914, ICD10: T15.01XA (primary diagnosis) Continue medications as directed: Current Ophthalmic Meds trimethoprim-polymyxin (POLYTRIM) 10,000 unit- 1 mg/mL ophthalmic solution Use 1 Drop in the right eye four times daily for 3 more days then discontinue. 2. High myopia, both eyes - ICD9: 367.1, ICD10: H52.13 3. Hx of LASIK - ICD9: V45.69, ICD10: Z98.890 History of high myopia both eyes Previous refraction prior to Laser in situ keratomileusis surgery Sphere Cylinder [place] Right -8.75 +0.50 001 Left -8.75 +0.50 036 Type: ARSENIO Sherwood MD I have confirmed and edited as necessary the relevant ophthalmic history, review of systems, surgical history, and ophthalmological examination findings as obtained by the ophthalmic technical staff. I have seen and examined Jesus Holcomb. I have discussed the examination findings, diagnosis, and treatment options with Jesus Holcomb and/or his family. I have also reviewed and agree with the assessment and plan as stated above and agree with all its relevant components. I gave the patient the opportunity to ask questions about the findings, diagnosis, and treatment options. [facility] 04-02-2023 Note HNO ID: [id number] Author: Brianna Sherwood MD Service: ? Author Type: Physician Type: Progress Notes Filed: 04/02/2023 5:04 PM Note Text: ASSESSMENT/PLAN: 1. Foreign body of right cornea, initial encounter - ICD9: 930.0, E914, ICD10: T15.01XA (primary diagnosis) - FOREIGN BODY REMOVAL, CORNEA W/ SLIT LAMP Begin: Current Ophthalmic Meds trimethoprim-polymyxin (POLYTRIM) 10,000 unit- 1 mg/mL ophthalmic solution Use 1 Drop in the right eye four times daily. 2. High myopia, both eyes - ICD9: 367.1, ICD10: H52.13 3. Hx of LASIK - ICD9: V45.69, ICD10: Z98.890 History of high myopia both eyes Previous refraction prior to Laser in situ keratomileusis surgery Sphere Cylinder [place] Right -8.75 +0.50 001 Left -8.75 +0.50 036 Type: ARSENIO Sherwood MD I have confirmed and edited as necessary the relevant ophthalmic history, review of systems, surgical history, and ophthalmological examination findings as obtained by the ophthalmic technical staff. I have seen and examined Jesus Holcomb. I have discussed the examination findings, diagnosis, and treatment options with Jesus Holcomb and/or his family. I have also reviewed and agree with the assessment and plan as stated above and agree with all its relevant components. I gave the patient the opportunity to ask questions about the findings, diagnosis, and treatment options. [facility] 04-02-2023 History of Present illness Narrative ASSESSMENT/PLAN: 1. Foreign body of right cornea, initial encounter - ICD9: 930.0, E914, ICD10: T15.01XA (primary diagnosis) - FOREIGN BODY REMOVAL, CORNEA W/ SLIT LAMP Begin: Current Ophthalmic Meds trimethoprim-polymyxin (POLYTRIM) 10,000 unit- 1 mg/mL ophthalmic solution Use 1 Drop in the right eye four times daily. 2. High myopia, both eyes - ICD9: 367.1, ICD10: H52.13 3. Hx of LASIK - ICD9: V45.69, ICD10: Z98.890 History of high myopia both eyes Previous refraction prior to Laser in situ keratomileusis surgery Sphere Cylinder [place] Right -8.75 +0.50 001 Left -8.75 +0.50 036 Type: ARSENIO Sherwood MD I have confirmed and edited as necessary the relevant ophthalmic history, review of systems, surgical history, and ophthalmological examination findings as obtained by the ophthalmic technical staff. I have seen and examined Jesus Holcomb. I have discussed the examination findings, diagnosis, and treatment options with Jesus Holcomb and/or his family. I have also reviewed and agree with the assessment and plan as stated above and agree with all its relevant components. I gave the patient the opportunity to ask questions about the findings, diagnosis, and treatment options. documented in this encounter [facility] 01-13-2023 Hospital Discharge instructions Patient Education 01/13/2023 18:37:23 Type 2 Diabetes Mellitus, Diagnosis, Adult, Jljj-xt-Dsvc Type 2 Diabetes Mellitus, Diagnosis, Adult Type 2 diabetes (type 2 diabetes mellitus) is a long-term (chronic) disease. It may happen when there is one or both of these problems: The pancreas does not make enough insulin. The body does not react in a normal way to insulin that it makes. Insulin lets sugars go into cells in your body. If you have type 2 diabetes, sugars cannot get into your cells. Sugars build up in the blood. This causes high blood sugar. What are the causes? The exact cause of this condition is not known. What increases the risk? Having type 2 diabetes in your family. Being overweight or very overweight. Not being active. Your body not reacting in a normal way to the insulin it makes. Having higher than normal blood sugar over time. Having a type of diabetes when you were . Having a condition that causes small fluid-filled sacs on your ovaries. What are the signs or symptoms? At first, you may have no symptoms. You will get symptoms slowly. They may include: More thirst than normal. More hunger than normal. Needing to pee more than normal. Losing weight without trying. Feeling tired. Feeling weak. Seeing things blurry. Dark patches on your skin. How is this treated? This condition may be treated by a diabetes expert. You may need to: Follow an eating plan made by a food expert (dietitian). Get regular exercise. Find ways to deal with stress. Check blood sugar as often as told. Take medicines. Your doctor will set treatment goals for you. Your blood sugar should be at these levels: Before meals: 80 130 mg/dL (4.4 7.2 mmol/L). After meals: below 180 mg/dL (10 mmol/L). Over the last 2 3 months: less than 7%. Follow these instructions at home: Medicines Take your diabetes medicines or insulin every day. Take medicines as told to help you prevent other problems caused by this condition. You may need: ?Aspirin. ?Medicine to lower cholesterol. ?Medicine to control blood pressure. Questions to ask your doctor Should I meet with a clinical document improvement educator? What medicines do I need, and when should I take them? What will I need to treat my condition at home? When should I check my blood sugar? Where can I find a support group? Who can I call if I have questions? When is my next doctor visit? General instructions Take pmor-wos-zrzehrv and prescription medicines only as told by your doctor. Keep all follow-up visits. Where to find more information For help and guidance and more information about diabetes, please go to: [place] [employer] (ADA): www.diabetes.org [place] [employer] and Education Specialists (ADCES): www.diabeteseducator.org International Diabetes Federation (IDF): www.idf.org Contact a doctor if: Your blood sugar is at or above 240 mg/dL (13.3 mmol/L) for 2 days in a row. You have been sick for 2 days or more, and you are not getting better. You have had a fever for 2 days or more, and you are not getting better. You have any of these problems for more than 6 hours: ?You cannot eat or drink. ?You feel like you may vomit. ?You vomit. ?You have watery poop (diarrhea). Get help right away if: Your blood sugar is lower than 54 mg/dL (3 mmol/L). You feel mixed up (confused). You have trouble thinking clearly. You have trouble breathing. You have medium or large ketone levels in your pee. These symptoms may be an emergency. Get help right away. Call your local emergency services (911 in the [place] Do not wait to see if the symptoms will go away. Do not drive yourself to the hospital. Summary Type 2 diabetes is a long-term disease. Your pancreas may not make enough insulin, or your body may not react in a normal way to insulin that it makes. This condition is treated with an eating plan, lifestyle changes, and medicines. Your doctor will set treatment goals for you. These will help you keep your blood sugar in a healthy range. Keep all follow-up visits. This information is not intended to replace advice given to you by your health care provider. Make sure you discuss any questions you have with your health care provider. Document Revised: 10/08/2021 Document Reviewed: 10/08/2021 Page [employer] Patient Education 2022 [employer]. Follow Up Care 12/31/2022 09:19:37 With:Gino Krueger CNP Address: [address] [place] [phone]- [phone] When:Within 1 Month(s) Comments:HTN medication review [facility] 12-26-2022 Hospital Discharge instructions Follow Up Care 12/26/2022 08:57:18 With:Gino Krueger CNP Address: [address] [place] [phone]- [phone] When:Within 1 Month(s) Comments:physical and review labs-zzz time [facility] Evaluation + Plan note Future Appointments Appointment Date:01/13/2023 06:20:00 PM Scheduled Provider:Gino Krueger CNP Location:[facility] Appointment Type:FM Open Diagnostic Tests PendingCBC w/ Auto Diff 12/31/22Comprehensive Metabolic Panel 12/31/2269IlrV2l 12/31/22Lipid Panel 12/31/22Thyroid Stimulating Hormone 12/31/22Free T4 12/31/22PSA Screen, Total 12/31/22Insulin Level Total 12/31/22 Future Scheduled TestsInsulin Level Total 12/31/22 [facility] Evaluation + Plan note Future Appointments Appointment Date:02/17/2023 06:20:00 PM Scheduled Provider:Gino Krueger CNP Location:[facility] Appointment Type: Open Future Scheduled TestsInsulin Level Total 12/31/22 [facility] Evaluation + Plan note Future Appointments Appointment Date:11/10/2023 04:00:00 PM Scheduled Provider:Gino Krueger CNP Location:[facility] Appointment Type:FM Open Diagnostic Tests PendingCBC w/ Auto Diff 10/06/23Comprehensive Metabolic Panel 10/06/2361SfzP4d 10/06/23Lipid Panel 10/06/23PSA Total 10/06/23 Future Scheduled TestsInsulin Level Total 12/31/22 [facility] N[facility] No data available for this section [facility] Progress note No data available for this section [facility] Reason for referral (narrative) , [facility] area- Referred by: Gino Krueger CNP [facility] Summary Purpose Family History No Family History Records FoundNo Family History Records Found No data available for this section No Family History Records Found Advance Directives No Advanced Directives Records FoundNo Advanced Directives Records FoundNo Advanced Directives Records Found Additional Source Comments Patient Care team informatio n (unrecognized section and content) (unrecognized sect ion and content) No Status Records FoundNo Status Records FoundNo Status Records Found INFORMATION SOURCE (unrecogn ized section and content) DATE CREATED AUTHOR AUTHOR'S ORGANIZ ATION 04/06/2023 [facility] DATE CREATED AUTHOR AUTHOR'S ORGANIZ ATION 10/07/2023 [facility] Source Comments (unrecognize d section and content) In the event this informatio n is protected by the Federal Confidentiality of Alcohol and Drug Abuse Patient Records regulations: The Federal rules restrict any use of the information to criminally investigate or prosecute any alcohol or drug abuse patient.[facility] Reason for Visit (unrecogniz ed section and content) FOR RECORDS PERTAINING TO PATIENTS WHO ARE OR HAVE BEEN ENROLLED IN A CHEMICAL DEPENDENCY/SUBSTANCEABUSE PROGRAM, SOME INFORMATION MAY BE OMITTED. This clinical summary was aggregated from multiple sources. Caution should be exercised in using it in the provision of clinical care. This summary normalizes information from multiple sources, and as a consequence, information in this document may materially change the coding, format and clinical context of patient data. In addition, data may be omitted in some cases. CLINICAL DECISIONS SHOULD BE BASED ON THE PRIMARY CLINICAL RECORDS. [facility]. provides no warranty or guarantee of the accuracy or completeness of information in this document.
[2023-10-11 08:12] LABS: Absolute Lymphocyte Count 2.12 X10^3/uL (0.83-4.51); Absolute Neutrophil Count 2.3 X10^3/uL (2.0-7.7); Basophil# 0.04 X10^3/uL; Basophil% 0.8 % (0-1); Eosinophil# 0.24 X10^3/uL; Eosinophils% 4.6 % (0-5); Hemoglobin 15.5 g/dL (13.0-16.5); Lymphocyte # 2.12 X10^3/ul (0.83-4.51); Lymphocyte % 40.6 % (19-41); Mean Corp Hgb Conc 34.4 g/dL (32-36); Mean Corpuscular Hgb 31.7 pg (27.0-32.0); Mean Platelet Vol. 10.4 fl (6.2-12.0); Monocyte# 0.53 X10^3/uL; Monocyte% 10.2 % (0-10); NRBC Flagged by Analyzer 0 % (0-5); Neutrophil # 2.27 X10^3/uL (2.7-7.7); Neutrophil % 43.4 % (47-70); Platelet Count 301 K/mm3 (150-450); RBC Distribution Width CV 12.2 % (11.6-14.6); RBC Distribution Width SD 41.3 fl (35.1-43.9); Red Blood Count 4.89 M/mm3 (4.6-6.2); White Blood Count 5.2 K/mm3 (4.4-11.0)
[2023-10-11 08:42] LABS: ALB/GLOB Ratio 1.1 RATIO (0.9-2.4); AST(SGOT) 22 U/L (15-37); Alanine Aminotransfer ALT/SGPT 46 U/L (16-61); Albumin, Serum 3.7 g/dL (3.2-5.0); Alkaline Phosphatase 58 U/L (45-117); Anion Gap 3 (5-15); BUN 12 mg/dL (7-18); BUN/Creat Ratio 10.5 RATIO (10-20); Calcium,Total 8.2 mg/dL (8.5-10.1); Chloride 107 mmol/L (98-107); Cholesterol 230 mg/dL (200); Creatinine, Serum 1.14 mg/dL (0.70-1.30); EST Glomerular Filtration Rate 74 mL/min (>60); Est Glom Filt Rate - Afr Amer 89 mL/min (>60); Globulin 3.3 g/dL (2.2-4.2); Glucose 116 mg/dL (74-106); High Density Lipoprotein 41 mg/dL; PSA,Total- Diagnostic 0.83 ng/mL (0.0-4.0); Potassium 4.6 mmol/L (3.5-5.1); Sodium Level 139 mmol/L (136-145); Triglycerides 171 mg/dL; Very Low Density Lipoprotein 34 mg/dL (5-40)
[2023-10-11 09:18] LABS: Hemoglobin A1c 5.8 % (3.8-5.6)
== END | disposition home or self-care (01) ==
LOC: LAB 07:09
PROVIDERS: PCP Nurse Practitioner Adult Health; Referring Provider Nurse Practitioner Adult Health; Visit Provider Nurse Practitioner Adult Health
DX: E78.5 Hyperlipidemia, unspecified (principal); R35.0 Frequency of micturition; R73.03 Prediabetes
CPT/HCPCS: 36415; 80053; 80061; 83036; 84153; 85025

== ENCOUNTER → 2024-02-21 | Outpatient (CLI) | payer OTHER, SELFPAY ==
[2024-02-21 07:54] LABS: Absolute Lymphocyte Count 1.89 X10^3/uL (0.83-4.51); Absolute Neutrophil Count 2.7 X10^3/uL (2.0-7.7); Basophil# 0.05 X10^3/uL; Basophil% 0.9 % (0-1); Eosinophil# 0.28 X10^3/uL; Eosinophils% 5.2 % (0-5); Hematocrit 43.6 % (40-54); Hemoglobin 14.8 g/dL (13.0-16.5); Lymphocyte # 1.89 X10^3/ul (0.83-4.51); Lymphocyte % 34.8 % (19-41); Mean Corp Hgb Conc 33.9 g/dL (32-36); Mean Corpuscular Hgb 31.3 pg (27.0-32.0); Mean Corpuscular Volume 92.2 fL (80-94); Monocyte% 9.2 % (0-10); NRBC Flagged by Analyzer 0 % (0-5); Neutrophil % 49.7 % (47-70); Platelet Count 285 K/mm3 (150-450); Red Blood Count 4.73 M/mm3 (4.6-6.2); White Blood Count 5.4 K/mm3 (4.4-11.0)
[2024-02-21 07:55] LABS: Hemoglobin A1c 5.4 % (3.8-5.6)
[2024-02-21 08:01] LABS: ALB/GLOB Ratio 1.1 RATIO (0.9-2.4); AST(SGOT) 27 U/L (15-37); Alanine Aminotransfer ALT/SGPT 34 U/L (16-61); Albumin, Serum 3.6 g/dL (3.2-5.0); Alkaline Phosphatase 58 U/L (45-117); Anion Gap -2 (5-15); BUN 11 mg/dL (7-18); BUN/Creat Ratio 8.9 RATIO (10-20); Calcium,Total 8.8 mg/dL (8.5-10.1); Chloride 106 mmol/L (98-107); Cholesterol 209 mg/dL (200); Creatinine, Serum 1.23 mg/dL (0.70-1.30); EST Glomerular Filtration Rate 67 mL/min (>60); Est Glom Filt Rate - Afr Amer 82 mL/min (>60); Globulin 3.3 g/dL (2.2-4.2); Glucose 106 mg/dL (74-106); High Density Lipoprotein 44 mg/dL; Potassium 4.8 mmol/L (3.5-5.1); Protein, Total 6.9 g/dL (6.4-8.2); Sodium Level 136 mmol/L (136-145); Triglycerides 153 mg/dL; Very Low Density Lipoprotein 31 mg/dL (5-40)
== END | disposition home or self-care (01) ==
LOC: LAB 07:05
PROVIDERS: PCP Nurse Practitioner Adult Health; Referring Provider Nurse Practitioner Adult Health; Visit Provider Nurse Practitioner Adult Health
DX: E78.5 Hyperlipidemia, unspecified (principal); R73.03 Prediabetes
CPT/HCPCS: 36415; 80053; 80061; 83036; 85025

== ENCOUNTER → 2024-07-19 | Outpatient (CLI) | payer OTHER, SELFPAY ==
--- NOTE | 2024-07-19 16:57 | CT_ITS ---
EXAM: CT ABDOMEN AND PELVIS WITHOUT AND WITH INTRAVENOUS CONTRAST CLINICAL INDICATION: Retention of urine, unspecified x 1 mon TECHNIQUE: Helically acquired images were obtained of the abdomen and pelvis without and with intravenous contrast. Venous and delayed phase postcontrast imaging. This CT exam was performed using one or more of the following dose reduction techniques: automated exposure control, adjustment of the mA and/or kV according to patient size, and/or use of iterative reconstruction technique. CONTRAST: IV 100mL Isovue-370 COMPARISON: No relevant prior studies available. FINDINGS: LOWER THORAX: No significant abnormality. Lung bases are clear. No cardiomegaly. No significant pericardial effusion. ABDOMEN: LIVER: No significant abnormality. Homogeneous. No focal mass. GALLBLADDER AND BILE DUCTS: No significant abnormality. No calcified gallstones. No gallbladder distention or wall edema. No intra- or extrahepatic biliary ductal dilation. PANCREAS: No significant abnormality. No focal cystic or solid mass. SPLEEN: No significant abnormality. Normal size without focal cystic or solid mass. ADRENALS: No significant abnormality. No nodules. KIDNEYS AND URETERS: No significant abnormality. Normal renal size and position. Normal excretory appearance of the bilateral kidneys. No hydronephrosis or urolithiasis identified. No focal solid or cystic renal lesion. STOMACH AND BOWEL: Diverticulosis of the colon without evidence of acute diverticulitis. No stomach or bowel distention. PELVIS: APPENDIX: Status post appendectomy. BLADDER: No significant abnormality. Normal appearance of the urinary bladder. REPRODUCTIVE: Normal as visualized. No mass. ABDOMEN and PELVIS: INTRAPERITONEAL SPACE: No significant abnormality. No ascites or other fluid collection. No free air. RETROPERITONEAL SPACE: No significant abnormality. No retroperitoneal fluid collection. BONES/JOINTS: No significant abnormality. No suspicious lytic or blastic abnormality. SOFT TISSUES: Fat-containing bilateral inguinal hernias and small fat-containing umbilical hernia. VASCULATURE: No significant abnormality. Abdominal aorta is non-dilated. LYMPH NODES: No significant abnormality. No enlarged lymph nodes. CT/CT Abd/Pelvis W/WO Contrast IMPRESSION: 1. No evidence of urinary tract pathology identified. Consider follow-up urology consultation if not already performed. 2. Status post appendectomy. Electronically Signed: Papa Rios DO at 22:30 EST ,
[2024-07-19 17:35] LABS: CREATININE FINGERSTICK 1.2 mg/dL (0.70-1.30); EGFR FINGERSTICK > 60.0000 mL/min (>60)
== END | disposition home or self-care (01) ==
PROVIDERS: PCP Nurse Practitioner Adult Health; Referring Provider Nurse Practitioner Adult Health; Visit Provider Nurse Practitioner Adult Health
DX: N40.1 Benign prostatic hyperplasia with lower urinary tract symptoms (principal); R33.8 Other retention of urine; R35.0 Frequency of micturition; R39.15 Urgency of urination
CPT/HCPCS: 74178; Q9967; A4216

== ENCOUNTER 2024-09-16 10:17 | Day surgery (SDC) | payer OTHER, SELFPAY ==
[2024-09-16] VITALS (11 sets, daily range): BP systolic 95–151; BP diastolic 48–106; PULSE 63–87; RESP 16–20; TEMP 35.8–37; O2SAT 96–100; BMI 33.5
--- NOTE | 2024-09-16 10:26 | EKG12_ITS ---
Test Reason : PREOP Blood Pressure : */* mmHG Vent. Rate : 75 BPM Atrial Rate : 75 BPM P-R Int : 138 ms QRS Dur : 88 ms QT Int : 386 ms P-R-T Axes : 14 61 56 degrees QTcB Int : 431 ms Normal sinus rhythm Normal ECG Confirmed by Jed Hart ([id number]), visual effects editor NAYELY JAEGER ([id number]) on 09/20/2024 10:48:10 AM Referred By: Argelia Triplett Confirmed By: Jed Hart
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
[2024-09-16] MEDS: 0.9% Normal Saline (1000mL) 1,000 ML 15 ML IV (10:59)
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
[2024-09-16] MEDS: Clindamycin 900 MG/50 ML BAG 75 MG IV (11:27)
[2024-09-16] MEDS: Vasopressin 20 UNITS/ML Vial (12:24)
--- NOTE | 2024-09-16 13:16 | OP.PCM_ITS ---
Operative Report (Standard) Operative Information Date of Procedure: 09/16/24 Pre-Operative Diagnosis: Bilateral inguinal hernias Post-Operative Diagnosis: Same Surgery/Procedure Performed: Bilateral robotic inguinal hernia repairs with mesh barber shop manager: Yes Towel Hemmer: Javi Jackson Tasks completed by airline pilot/first officer: Opening & closing Type of Anesthesia: General/Supplemental RN Documented Start/Stop Times: Operation Date: 09/16/24 11:30 Case Time Into Pre-Op 09/16/24 10:22 Out of Pre-Op 09/16/24 11:25 Anesthesia Start 09/16/24 11:27 Into Room 09/16/24 11:27 Procedure Start 09/16/24 11:47 Procedure End 09/16/24 13:26 Anesthesia End 09/16/24 13:33 Out of Room 09/16/24 13:33 Into Recovery 09/16/24 13:35 Into Phase II Recovery 09/16/24 14:42 Out of Recovery 09/16/24 14:42
--- NOTE | 2024-09-16 13:16 | PCM.OPRPT ---
Operative Report (Standard) Operative Information Date of Procedure: 09/16/24 Pre-Operative Diagnosis: Bilateral inguinal hernias Post-Operative Diagnosis: Same Surgery/Procedure Performed: Bilateral robotic inguinal hernia repairs with mesh sales executive: Yes Oxygen Equipment Technician: Javi Jackson Tasks completed by general office assistant: Opening & closing Type of Anesthesia: General/Supplemental RN Documented Start/Stop Times: Operation Date: 09/16/24 11:30 Case Time Into Pre-Op 09/16/24 10:22 Out of Pre-Op 09/16/24 11:25 Anesthesia Start 09/16/24 11:27 Into Room 09/16/24 11:27 Procedure Start 09/16/24 11:47 Procedure End 09/16/24 13:26 Anesthesia End 09/16/24 13:33 Out of Room 09/16/24 13:33 Into Recovery 09/16/24 13:35 Into Phase II Recovery 09/16/24 14:42 Out of Recovery 09/16/24 14:42 Procedure Start Time: 11:47 Procedure Stop Time: 13:26 Select all DRAINS/GRAFTS/IMPLANTS that apply: Prosthetic device Prosthetic device details: ProGrip mesh bilateral Special Medications: Clindamycin 9 mg IV x 1 Estimated Blood Loss: < 10 cc Specimen collected: No Description of surgery: Indications: 44-year-old male presented with bilateral symptomatic inguinal hernias, right more than left. Robotic bilateral inguinal hernia repairs with mesh were elected elected patient was agreeable. Description of procedure: Patient was brought to operating room placed supine operative table. Timeout was completed verifying correct patient, procedure, site, positioning, special, prior to beginning procedure. General anesthesia was induced. Patient's arms were tucked and padded appropriately. Visiport was used to make the incision at Cummings's point in the left upper quadrant. Entry into the abdomen was confirmed visually. Laparoscope was placed. Verifying no injury during initial trocar placement. Patient was placed in Trendelenburg position. Two 8 mm trochars were placed along the horizontal line in the midline and in the right upper quadrant. The initial 5 mm trocar was upsized to an 8 mm well under direct visualization. Both the inguinal regions were inspected and left indirect and right direct hernias were seen. Both procedures done similarly. The median umbilical ligament was divided sharply with electrocautery. Peritoneum was incised with the endoscopic scissors along a line 2 cm above the superior edge of the hernia defect extending from the median umbilical ligament to anterior superior iliac spine. Peritoneal flap was mobilized inferiorly using blunt and sharp/cautery dissection. The inferior epigastric vessels were exposed and symphysis pubis and identified. The bilateral indirect hernia sac was inverted and dissected. Cord structures were visualized and protected. ProGrip mesh were used bilaterally. The mesh was rolled longitudinally into a compact cylinder and passed through the trocar. The cylinder was placed along the inferior aspect of the working space and unrolled into place to completely cover the direct, indirect and femoral spaces. Care was taken to avoid the inferolateral triangle containing iliac vessels and genital nerves. The peritoneal flap was closed over mesh and secured with 3-0 V-Loc suture. After ensuring adequate hemostasis, the trochars were removed and pneumoperitoneum allowed to escape. The skin was closed with 4-0 Monocryl interrupted sutures and Steri-Strips. Patient's testicles are also confirmed in the scrotum bilaterally. Patient tolerated procedure well was taken to the postanesthesia care unit in stable condition. Surgical Findings: See operative report Complications Complications: No
--- NOTE | 2024-09-16 13:17 | DCINST_ITS ---
Discharge Instructions Procedure Hernia Diet Discharge Diet: Light diet - advance as tolerated Activity Discharge Activity: Return to Normal Activity, May Not Drive (while taking narcotic pain meds.) and May Shower (with the bandage in place 1-2 days after surgery.) Lifting Restrictions: 20 pounds for 2 wk then 40 lb for 4 wk Additional Activity Instructions:: Climbing stairs is fine, walking is encou raged. Sitting in bed may be uncomfortable. Sitting up using your lateral muscles (sitting up sideways) is usually more comfortable. Do not drive, work heavy equipment of sign legal documents for 24 hours. You may have scrotal swelling, an ice pack and/or athletic support can provide more comfort. Pain medications may cause nausea, you should typically eat light foods as you take your pain medications. Pain medications may also cause constipation. If you have difficulty with this, discuss with your doctor. Dressing / Incision Call your doctor if your incision/area has: Continuous Slow Oozing, Sudden Increased Bleeding, Increased Pain/ Swelling, Increased Redness and Foul Smelling Discharge Call your doctor if you observe: Fever of 101 or Higher Suture Line Care: Avoid Pulling/Pushing and Avoid Pinching/Bending Change Dressing in: 3 days (Leave steri-strips in place for 1 week. May protect with a guaze bandaid.) Additional Dressing/Incision Instructions:: Leave the operative bandage on for 2-3 days. When you remove the bandage, leave the steri-strips on place until your follow up appointment or they fall off. Follow Up Care Please Follow Up With: Argelia Triplett MD When: Please call [phone] for a follow up appointment in 14 days. Test Results: Test results from this visit will be discussed in further detail at your follow- up appointment, if applicable. Discharge Plan Admission Attending Provider: Argelia Triplett Primary Care Provider: Brandi Ackerman NP Instructions Print Language: Croatian Discharge Orders/Prescriptions Prescriptions: New oxycodone 5 mg capsule 5 - 10 mg PO Q6H PRN (Reason: pain) 3 Days Qty: 14 0RF Continued losartan 25 mg tablet 25 mg PO QDAY phentermine [Adipex-P] 37.5 mg tablet 37.5 mg PO QDAY Rx Instructions: must administer 30 minutes before or 1-2 hours after breakfast tadalafil 10 mg tablet 10 mg PO QHS Referrals / Follow Up: Brandi Ackerman ELECTROTYPE FINISHER, ELECTROTYPE FINISHER-C [Primary Care Provider] - Disposition Disposition (needs filled in before D/C Order can be placed): Home, Self Care
[2024-09-16] MEDS: Bupivacaine Mpf 0.5% 30 ML VIAL (13:25)
--- NOTE | 2024-09-16 13:42 | PCM.POST.ANE ---
Anesthesia: Postop Eval I Current Vital Signs Temperature: 97.5 F Pulse Rate: 78 Blood Pressure: 134/78 Respiratory Rate: 16 Pulse Ox: 98 Oxygen Delivery Method: Simple Mask Oxygen Flow Rate (L/min): 6 Assessment Airway patent: Yes Spontaneous unlabored respirations: Yes Mental status: Asleep nausea: No Vomiting: No Anesthesia Complication: No Fluid Hydration Crystalloid volume administer (ml): 1,800 Total IV fluid infused: 1,800 Progress Note Anesthesia document: Postop Eval 1 completed: Yes
[2024-09-16] MEDS: Ketorolac 15 MG/ML Vial IV (14:15)
--- NOTE | 2024-09-16 16:25 | POSTOPAN2_ITS ---
Anesthesia Postop Eval I Sum Postop Eval Completion status Anesthesia document: Postop Eval 1 completed: Yes Anesthesia Postop Eval I Summary Anesthesia Postop Eval I Summary: Anesthesia Postop Eval I: Assessment Summary Airway patent Yes 09/16/24 13:43 FIRE SUPPORT [email or web address] Spontaneous unlabored Yes 09/16/24 13:43 FIRE SUPPORT [email or web address] respirations Mental status Asleep 09/16/24 13:43 FIRE SUPPORT [email or web address] nausea No 09/16/24 13:43 FIRE SUPPORT MAN.NFOR Vomiting No 09/16/24 13:43 FIRE SUPPORT [email or web address] Anesthesia Postop Eval I: Fluid Summary Crystalloid volume administer 1,800 09/16/24 13:43 FIRE SUPPORT [email or web address] (ml) Colloids volume administered ( ml) Blood Product volume administered (ml) Total IV fluid infused 1,800 09/16/24 13:43 FIRE SUPPORT [email or web address] Anesthesia Postop Eval I: Summary Notes Anesthesia Complication No 09/16/24 13:43 FIRE SUPPORT [email or web address] Anesthesia Complication Comment: Post-operative progress note Anesthesia: Postop Eval II Evaluation Mental status: Awake and Calm Pain Level: 0 nausea: No Vomiting: No Complications Anesthesia Complication: No
--- NOTE | 2024-09-16 16:25 | PCM.POSTANE2 ---
Anesthesia Postop Eval I Sum Postop Eval Completion status Anesthesia document: Postop Eval 1 completed: Yes Anesthesia Postop Eval I Summary Anesthesia Postop Eval I Summary: Anesthesia Postop Eval I: Assessment Summary Airway patent Yes 09/16/24 13:43 CHART [email or web address] Spontaneous unlabored Yes 09/16/24 13:43 CHART [email or web address] respirations Mental status Asleep 09/16/24 13:43 CHART [email or web address] nausea No 09/16/24 13:43 CHART [email or web address] Vomiting No 09/16/24 13:43 CHART [email or web address] Anesthesia Postop Eval I: Fluid Summary Crystalloid volume administer 1,800 09/16/24 13:43 CHART [email or web address] (ml) Colloids volume administered ( ml) Blood Product volume administered (ml) Total IV fluid infused 1,800 09/16/24 13:43 CHART [email or web address] Anesthesia Postop Eval I: Summary Notes Anesthesia Complication No 09/16/24 13:43 CHART [email or web address] Anesthesia Complication Comment: Post-operative progress note Anesthesia: Postop Eval II Evaluation Mental status: Awake and Calm Pain Level: 0 nausea: No Vomiting: No Complications Anesthesia Complication: No
== END 2024-09-16 15:40 | disposition home or self-care (01) ==
LOC: SDC 10:23 → AC 10:24
PROVIDERS: PCP Nurse Practitioner Adult Health; Referring Provider Surgery; Visit Provider Surgery
PROC: (CPT 49650; principal; 2024-09-16 11:10)
DX: K40.20 Bilateral inguinal hernia, without obstruction or gangrene, not specified as recurrent (principal); I10 Essential (primary) hypertension; Z79.899 Other long term (current) drug therapy; Z87.891 Personal history of nicotine dependence
CPT/HCPCS: 49650; S2900; 00750; 93005; J2405

== ENCOUNTER → 2025-01-15 | Outpatient (CLI) | payer OTHER, SELFPAY ==
--- OUTSIDE RECORDS SUMMARY | 2025-01-15 07:11 | XMS RPT_ITS | CCD ---
Author Organization [facility] Care Team Providers Care Scientific Programmer Name Role Phone Gino Ackerman Primary Care Physician [phone] Dr. Ge Potter Primary Care Unav ailable Gino Ackerman CNP Primary Care Provider [phone] IRENE ACKERMANINDA Primary Care Unavailable RAOUL BRITO Referring Unavailable BRITORAOUL Attending Unavailable ASCENCION BRITOINDER Merlyn Referring Unavailable RAOUL BRITO Attending Unavailable IRENE ACKERMANINDA Primary Care Unavailable Riedy, MARIANN Brannon Attending Unavailable Riedy, MARIANN Brannon Attending Unavailable Riedy, MARIANN Brannon Attending Unavailable Riedy, MARIANN Urenaa Clovis Attending Unavailable Riedy, MARIANN Urenaa Clovis Attending Unavailable Riedy, MARIANN Urenaa Clovis Attending Unavailable Riedy, MARIANN Urenaa Clovis Attending Unavailable Riedy, MARIANN Urenaa Clovis Attending Unavailable Riedy, MARIANN Urenaa Clovis Attending Unavailable Riedy, MAIRANN Bonillainda Clovis Admitting Unavailable Riedy, MARIANN Bonillainda Clovis Attending Unavailable Riedy, MARIANN Bonillainda Clovis Attending Unavailable Riedy, MARIANN Bonillainda Clovis Attending Unavailable Riedy MINE PATROL, Gino Primary Care Unavailable Riedy MINE PATROLGino Attending Unavailable Riedy MINE PATROLGino Referring Unavailable Robotham, Argelia Referring Unavailable Riedy MINE PATROL, Gino Primary Care Unavailable Robotham, Argelia Attending Unavailable Riedy MINE PATROL, Gino Primary Care Unavailable Riedy MINE PATROLRomela Referring Unavailable Robotham, Argelia Attending Unavailable Robotham, Argelia Referring Unavailable Riedy MINE PATROL, Gino Primary Care Unavailable Robotham, Argelia Consulting Unavailable Robotham, Argelia Attending Unavailable Refugio Quispe Referring Unavailable Jed Hart Attending Unavailable Riedy MINE PATROL, Gino Primary Care Unavailable Darleen Perrin Attending Unavailable Riedy MINE PATROL, Gino Referring Unavailable Riedy MINE PATROL, Gino Primary Care Unavailable Riedy MINE PATROL, Gino Primary Care Unavailable Riedy MINE PATROL, Gino Attending Unavailable Riedy MINE PATROL, Gino Referring Unavailable Riedy MINE PATROL, Gino Primary Care Unavailable Riedy MINE PATROL, Gino Attending Unavailable Riedy MINE PATROL, Gino Referring Unavailable MD BRODIE PATEL Attending Unav ailable Gino Ackerman Attending Unavailable Gino Ackerman Attending Unavailable Allergies Allergy Classification Reported Allergen(s) Allergy Type Date of Onset Reaction(s) Facility (15 sources) Penicillin; Translations: [penicillin] Drug Allergy Unknown (qualifier value) [facility] (15 sources) Sulfonamides (Antibiotic); Translations: [sulfa drugs] Drug allergy Unknown (qualifier value) [facility] (2 sources) Penicillins; Translations: [PENICILLINS] Drug Allergy 6 Unknown [facility] (2 sources) Sulfonamides (Antibiotic); Translations: [SULFA (SULFONAMIDE ANTIBIOTICS)] Drug Allergy 6 Unknown [facility] (1 source) Penicillins Drug allergy (disorder) 5 [facility] (1 source) Sulfonamides (Antibiotic) Drug allergy (disorder) 5 [facility] Medications Current Medications Medication Drug Class(es) Dates Sig (Normalized) Sig (Original) chlorhexidine gluconate 40 mg/ml medicated liquid soap (8 sources) Start: 03-15-2024 Hibiclens 4% Soap 1 mic, Topical, Once, 473 mL, Refill(s) 1, [facility], 180, cm, 03/15/24 16:07:00 EDT, Height/Length Dosing, 117.4, kg, 03/15/24 16:07:00 EDT, Weight Dosing Start Date: 03/15/24 Status: Ordered Start: 12-15-2023 Hibiclens 4% S oap 1 mic, Topical, Once, 473 mL, Refill(s) 1, [facility], 180, cm, 12/15/23 17:59:00 EDT, Height/Length Dosing, 123.5, kg, 12/15/23 17:59:00 EDT, Weight Dosing Start Date: 12/15/23 Status: Ordered diclofenac potassium 50 mg oral tablet (6 sources) Nonsteroidal Anti-inflammatory Drug Start: 02-16-2024 take 1 tablet by mouth three times daily diclofenac potassium 50 mg oral tablet 50 mg = 1 tab(s), Oral, TID, # 90 tab(s), Refills(s) 0, Pharmacy: [facility], 180, cm, 02/16/24 16:28:00 EDT, Height/Length Dosing, 120.1, kg, 02/16/24 16:28:00 EDT, Weight Dosing Start Date: 02/16/24 Status: Ordered lisinopril 10 mg oral tablet (1 source) Angiotensin Converting Enzyme Inhibitor Start: 01-13-2023 take 1 tablet by mouth once daily lisinopril 10 mg Tab 10 mg = 1 tab(s), Oral, Daily, # 30 tab(s), Refills(s) 2, Pharmacy: [facility], 180, cm, 01/13/23 18:26:00 EDT, Height/Length Dosing, 130.8, kg, 01/13/23 18:26:00 EDT, Weight Dosing Start Date: 01/13/23 Status: Ordered losartan potassium 25 mg oral tablet (13 sources) Angiotensin 2 Receptor Michelle Start: 08-23-2024 take 1 tablet by mouth once daily losartan 25 mg Tab 25 mg = 1 tab(s), Oral, Daily, Dry cough with NAEL, # 30 tab(s), Refills(s) 5, Pharmacy: [facility], 180, cm, 08/23/24 17:11:00 EST, Height/Length Dosing, 113.9, kg, 08/23/24 17:11:00 EST, Weight Dosing Start Date: 08/23/24 Status: Ordered Start: 11-10-2023 take 1 tablet by marquita th once daily losartan 25 mg Tab 25 mg = 1 tab(s), Oral, Daily, Dry cough with NAEL, # 30 tab(s), Refills(s) 5, Pharmacy: [facility], 180, cm, 11/10/23 16:03:00 EDT, Height/Length Dosing, 127.1, kg, 11/10/23 16:03:00 EDT, Weight Dosing Start Date: 11/10/23 Status: Ordered Start: 10-06-2023 take 1 tablet by marquita th once daily losartan 25 mg Tab 25 mg = 1 tab(s), Oral, Daily, Dry cough with NAEL, # 30 tab(s), Refills(s) 5, Pharmacy: [facility], 180, cm, 10/06/23 18:18:00 EDT, Height/Length Dosing, 131.2, kg, 10/06/23 18:18:00 EDT, Weight Dosing Start Date: 10/06/23 Status: Ordered Start: 03-26-2023 losartan (COZA AR) 25 mg tablet Start: 01-13-2023 take 1 tablet by marquita th once daily losartan 25 mg Tab 25 mg = 1 tab(s), Oral, Daily, Dry cough with NAEL, # 30 tab(s), Refills(s) 2, Pharmacy: [facility], 180, cm, 01/13/23 18:26:00 EDT, Height/Length Dosing, 130.8, kg, 01/13/23 18:26:00 EDT, Weight Dosing Start Date: 01/13/23 Status: Ordered 24 hr oxybutynin chloride 10 mg extended release oral tablet (1 source) Cholinergic Muscarinic Antagonist Start: 03-15-2024 take 1 tablet by mouth once daily Ditropan XL 10 mg Tab-ER 10 mg = 1 tab(s), Oral, Daily, # 30 tab(s), Refills(s) 2, Pharmacy: [facility], 180, cm, 03/15/24 16:07:00 EDT, Height/Length Dosing, 117.4, kg, 03/15/24 16:07:00 EDT, Weight Dosing Start Date: 03/15/24 Status: Ordered phentermine hydrochloride 37.5 mg oral tablet (11 sources) Sympathomimetic Amine Anorectic Start: 08-23-2024 take 1 tablet by mouth once daily Adipex-P 37.5 mg Tab 37.5 mg = 1 tab(s), Oral, Daily, disregard if Rx on file, # 30 tab(s), Refills(s) 0, Pharmacy: [facility], 180, cm, 08/23/24 17:11:00 EST, Height/Length Dosing, 113.9, kg, 08/23/24 17:11:00 EST, Weight Dosing Start Date: 08/23/24 Status: Ordered Start: 07-26-2024 take 1 tablet by marquita th once daily Adipex-P 37.5 mg Tab 37.5 mg = 1 tab(s), Oral, Daily, disregard if Rx on file, # 30 tab(s), Refills(s) 0, Pharmacy: [facility], 180, cm, 07/26/24 16:53:00 EST, Height/Length Dosing, 114.2, kg, 07/26/24 16:53:00 EST, Weight Dosing Start Date: 07/26/24 Status: Ordered Start: 06-21-2024 take 1 tablet by marquita th once daily Adipex-P 37.5 mg Tab 37.5 mg = 1 tab(s), Oral, Daily, disregard if Rx on file, # 30 tab(s), Refills(s) 0, Pharmacy: [facility], 180, cm, 06/21/24 18:28:00 EST, Height/Length Dosing, 114.9, kg, 06/21/24 18:28:00 EST, Weight Dosing Start Date: 06/21/24 Status: Ordered Start: 05-03-2024 take 1 tablet by marquita th once daily Adipex-P 37.5 mg Tab 37.5 mg = 1 tab(s), Oral, Daily, disregard if Rx on file, # 30 tab(s), Refills(s) 0, Pharmacy: [facility], 180, cm, 05/03/24 17:31:00 EDT, Height/Length Dosing, 114.7, kg, 05/03/24 17:31:00 EDT, Weight Dosing Start Date: 05/03/24 Status: Ordered Start: 03-15-2024 take 1 tablet by marquita th once daily Adipex-P 37.5 mg Tab 37.5 mg = 1 tab(s), Oral, Daily, disregard if Rx on file, # 30 tab(s), Refills(s) 0, Pharmacy: [facility], 180, cm, 03/15/24 16:07:00 EDT, Height/Length Dosing, 117.4, kg, 03/15/24 16:07:00 EDT, Weight Dosing Start Date: 03/15/24 Status: Ordered Start: 02-16-2024 take 1 tablet by marquita th once daily Adipex-P 37.5 mg Tab 37.5 mg = 1 tab(s), Oral, Daily, # 30 tab(s), Refills(s) 0, Pharmacy: [facility], 180, cm, 02/16/24 16:28:00 EDT, Height/Length Dosing, 120.1, kg, 02/16/24 16:28:00 EDT, Weight Dosing Start Date: 02/16/24 Status: Ordered Start: 01-19-2024 take 1 tablet by marquita th once daily Adipex-P 37.5 mg Tab 37.5 mg = 1 tab(s), Oral, Daily, # 30 tab(s), Refills(s) 0, Pharmacy: [facility], 180, cm, 01/19/24 18:14:00 EDT, Height/Length Dosing, 124.1, kg, 01/19/24 18:14:00 EDT, Weight Dosing Start Date: 01/19/24 Status: Ordered Start: 12-15-2023 take 1 tablet by marquita th once daily Adipex-P 37.5 mg Tab 37.5 mg = 1 tab(s), Oral, Daily, # 30 tab(s), Refills(s) 0, Pharmacy: [facility], 180, cm, 12/15/23 17:59:00 EDT, Height/Length Dosing, 123.5, kg, 12/15/23 17:59:00 EDT, Weight Dosing Start Date: 12/15/23 Status: Ordered Start: 11-10-2023 take 1 tablet by marquita th once daily Adipex-P 37.5 mg Tab 37.5 mg = 1 tab(s), Oral, Daily, # 30 tab(s), Refills(s) 0, Pharmacy: [facility], 180, cm, 11/10/23 16:03:00 EDT, Height/Length Dosing, 127.1, kg, 11/10/23 16:03:00 EDT, Weight Dosing Start Date: 11/10/23 Status: Ordered Start: 10-06-2023 take 1 tablet by marquita th once daily Adipex-P 37.5 mg Tab 37.5 mg = 1 tab(s), Oral, Daily, # 30 tab(s), Refills(s) 0, Pharmacy: [facility], 180, cm, 10/06/23 18:18:00 EDT, Height/Length Dosing, 131.2, kg, 10/06/23 18:18:00 EDT, Weight Dosing Start Date: 10/06/23 Status: Ordered tadalafil 10 mg oral tablet (10 sources) Phosphodiesterase 5 Inhibitor Start: 08-23-2024 take 1 tablet by mouth once daily as needed tadalafil 10 mg Tab 10 mg = 1 tab(s), Oral, Daily, PRN for erectile dysfunction, # 30 tab(s), Refills(s) 2, Pharmacy: [facility], 180, cm, 08/23/24 17:11:00 EST, Height/Length Dosing, 113.9, kg, 08/23/24 17:11:00 EST, Weight Dosing Start Date: 08/23/24 Status: Ordered Start: 06-21-2024 take 1 tablet by marquita th once daily as needed tadalafil 10 mg Tab 10 mg = 1 tab(s), Oral, Daily, PRN for erectile dysfunction, # 30 tab(s), Refills(s) 2, Pharmacy: [facility], 180, cm, 06/21/24 18:28:00 EST, Height/Length Dosing, 114.9, kg, 06/21/24 18:28:00 EST, Weight Dosing Start Date: 06/21/24 Status: Ordered Start: 12-15-2023 take 1 tablet by marquita th once daily tadalafil 5 mg oral tablet 5 mg = 1 tab(s), Oral, Daily, For BPH with lower urinary symptoms, # 30 tab(s), Refills(s) 3, Pharmacy: [facility], 180, cm, 05/03/24 17:31:00 EDT, Height/Length Dosing, 114.7, kg, 05/03/24 17:31:00 EDT, Weight Dosing Start Date: 05/03/24 Status: Ordered tamsulosin hydrochloride 0.4 mg oral capsule (3 sources) alpha-Adrenergic Michelle Start: 12-15-2023 tamsulosin 0.4 mg Cap 0.4 mg = 1 cap(s), Refills(s) 0 Start Date: 12/15/23 Status: Ordered topiramate 25 mg oral tablet (4 sources) Start: 08-23-2024 take 1 tablet by mouth twice daily Topamax 25 mg Tab 25 mg = 1 tab(s), Oral, BID, # 60 tab(s), Refills(s) 3, Pharmacy: [facility], 180, cm, 08/23/24 17:11:00 EST, Height/Length Dosing, 113.9, kg, 08/23/24 17:11:00 EST, Weight Dosing Start Date: 08/23/24 Status: Ordered Start: 06-21-2024 take 1 tablet by marquita th twice daily Topamax 25 mg Tab 25 mg = 1 tab(s), Oral, BID, # 60 tab(s), Refills(s) 0, Pharmacy: [facility], 180, cm, 06/21/24 18:28:00 EST, Height/Length Dosing, 114.9, kg, 06/21/24 18:28:00 EST, Weight Dosing Start Date: 06/21/24 Status: Ordered Completed/Discontinued Medications Medication Drug Class(es) Dates Sig (Normalized) Sig (Original) hypromellose 0.003 mg/mg ophthalmic gel (1 source) Start: 09-23-2020 apply 1 drop(s) into the eye(s) four times daily Artificial Tear, Hypromellose, (SYSTANE GEL) 0.3 % gel Use 1 Drop in the right eye four times daily. 0 09/23/2020 Active Comment on above: Use 1 Drop in the ri ght eye four times daily. phenylephrine hydrochloride 25 mg/ml ophthalmic solution (1 source) alpha-1 Adrenergic Agonist Start: 04-02-2023 End: 04-03-2023 PHENYLephrine 2.5 % 1 Drop (AK-DILATE, KAREEM-SYNEPHRINE) polymyxin b [id number] unt/ml / trimethoprim 1 mg/ml ophthalmic solution (1 source) Dihydrofolate Reductase Inhibitor Antibacterial, Polymyxin-class Antibacterial Start: 04-02-2023 take 1 drop(s) into the eye(s) four times daily trimethoprim-polym yxin (POLYTRIM) 10,000 unit- 1 mg/mL ophthalmic solution Use 1 Drop in the right eye four times daily. 0 04/02/2023 Active Comment on above: Use 1 Drop in the ri ght eye four times daily. proparacaine hydrochloride 5 mg/ml ophthalmic solution (1 source) Local Anesthetic Start: 04-02-2023 End: 04-03-2023 proparacaine 0.5 % 1 Drop (ALCAINE) tropicamide 10 mg/ml ophthalmic solution (1 source) Anticholinergic Start: 04-02-2023 End: 04-03-2023 tropicamide 1 % 1 Drop (MYDRIACYL) Problems Active Problems Problem Classification Problem Date Documented Date Episodic/Chronic Abdominal hernia (9 sources) Bilateral inguinal hernia; Translations: [Bilateral inguinal hernia, without obstruction or gangrene, not specified as recurrent] Onset: 07-26-2024 Episodic Abdominal pain (2 sources) Abdominal pain; Translations: [Unspecified abdominal pain] Onset: 08-23-2024 Episodic Adjustment disorders (1 source) Stress and adjustment reaction; Translations: [Reaction to severe stress, unspecified] Onset: 12-31-2022 Chronic Administrative/social admission (20 sources) Patient encounter status; Translations: [Persons encountering health services in other specified circumstances] Onset: 12-31-2022 Episodic Allergic reactions (11 sources) Other allergy status, other than to drugs and biological substances; Translations: [Allergic disposition] Onset: 01-19-2024 Episodic Blindness and vision defects (2 sources) Severe myopia; Translations: [Myopia, bilateral] Onset: 09-23-2020 04-02-2023 Episodic Diabetes mellitus without complication (16 sources) Prediabetes; Translations: [Prediabetes] Onset: 01-13-2023 Episodic Disorders of lipid metabolism (17 sources) Hyperlipidemia; Translations: [Hyperlipidemia, unspecified] Onset: 01-13-2023 Chronic Essential hypertension (20 sources) Essential hypertension; Translations: [Essential (primary) hypertension] Onset: 01-13-2023 Chronic Genitourinary symptoms and ill-defined conditions (20 sources) Increased frequency of urination; Translations: [Frequency of micturition] Onset: 12-31-2022 Episodic Hyperplasia of prostate (17 sources) Benign prostatic hypertrophy with outflow obstruction; Translations: [Benign prostatic hyperplasia with lower urinary tract symptoms] Onset: 12-15-2023 Chronic Osteoarthritis (11 sources) 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 Other circulatory disease (2 sources) Elevated blood-pressure reading without diagnosis of hypertension; Translations: [Elevated blood-pressure reading, without diagnosis of hypertension] Onset: 12-31-2022 Episodic Other circulatory disease (7 sources) Elevated blood pressure 12-31-2022 Episodic Other diseases of bladder and urethra (2 sources) Detrusor overactivity; Translations: [Overactive bladder] Onset: 03-15-2024 Chronic Other diseases of bladder and urethra (6 sources) Overactive bladder 03-15-2024 Chronic Other injuries and conditions due to external causes (1 source) Foreign body in right cornea; Translations: [Foreign body in cornea, right eye, initial encounter] 04-02-2023 Episodic Other lower respiratory disease (15 sources) Snoring; Translations: [Snoring] Onset: 12-31-2022 Episodic Other non-traumatic joint disorders (2 sources) Pain of right elbow joint; Translations: [Pain in right elbow] Onset: 12-31-2022 Episodic Other non-traumatic joint disorders (13 sources) Pain in elbow 12-31-2022 Episodic Other nutritional; endocrine; and metabolic disorders (3 sources) Body mass index 40+ - severely obese; Translations: [Body mass index (BMI) 40.0-44.9, adult] Onset: 12-31-2022 Chronic Other nutritional; endocrine; and metabolic disorders (20 sources) Obesity; Translations: [Obesity, unspecified] Onset: 12-31-2022 Chronic Other nutritional; endocrine; and metabolic disorders (9 sources) Obese class II; Translations: [Body mass index (BMI) 39.0-39.9, adult] Onset: 11-10-2023 Chronic Other nutritional; endocrine; and metabolic disorders (1 source) Abnormal weight gain; Translations: [Abnormal weight gain] Onset: 12-31-2022 Episodic Other nutritional; endocrine; and metabolic disorders (13 sources) Weight gain 12-31-2022 Episodic Other upper respiratory disease (16 sources) Allergic rhinitis; Translations: [Allergic rhinitis, unspecified] Onset: 12-31-2022 Chronic Residual codes; unclassified (1 source) Past history of procedure; Translations: [Other specified postprocedural states] Onset: 07-26-2024 Episodic Skin and subcutaneous tissue infections (10 sources) Infection of skin and/or subcutaneous tissue; Translations: [Local infection of the skin and subcutaneous tissue, unspecified] Onset: 12-15-2023 Episodic Sprains and strains (16 sources) Injury of muscle and tendon at thorax level; Translations: [Strain of muscle and tendon of back wall of thorax, initial encounter] Onset: 02-16-2024 Episodic Unclassified (20 sources) Patient encounter status 12-31-2022 Unclassified (2 sources) History of hernia repair 07-26-2024 Past or Other Problems Problem Classification Problem Date Documented Da te Episodic/Chronic Superficial injury; contusion (1 source) Abrasion of cornea of right eye; Translations: [Injury of conjunctiva and corneal abrasion without foreign body, right eye, initial encounter] Onset: 09-23-2020 09-23-2020 Episodic Results Test Name Value Interpretation Reference Range Facility Family Medicine Office/Clini c Noteon 11-16-2024 Family Medicine Office/Clinic Note Family Medicine Office/Clinic Note Chief Complaint 2 month Med Review/Surgical follow up The patient presents for review following recent inguinal hernia repair and to discuss ongoing weight management. HPI Staff Patient is here for 2 month Med Review/Surgical follow up Concerns:No Refills:Everything Health Maintenance: Colonoscopy:Due PSA: No qualifying data available. Last Labs:02/21/2024 History of Present Illness The patient is a 44-year-old male presenting with follow-up after a recent inguinal hernia repair. He underwent a robotic-assisted procedure with mesh incorporated internally, resolving significant pre-surgical pain, with only residual but improving sensations post-procedure. Urological symptoms linked to his history of urinary urgency have subsided, eliminating the perceived need for urological consultation. Regarding weight management, he has been using Adipex intermittently with a notable reduction in weight from 252 to 239 pounds. Management of his obesity and prediabetes is a current priority, influenced by dietary habits noted during a recent leisure visit to [place]. Review of Systems PHQ Score Initial Depression Screen Score: 0 SCORE - Gastrointestinal: Reports improved urinary control post-surgery. - Endocrine/Metabolic: Reports weight loss and control. - Surgical history: Status post inguinal hernia repair with robotic assistance and mesh placement. - Musculoskeletal: Reports no significant joint pain; managing with physical activity adjustments. - Constitutional: Denies general fatigue; reports good energy levels post recovery. Physical Exam Vitals & Measurements HR: 78(Peripheral) RR: 16 BP: 120/78 SpO2: 96% HT: 180 cm HT: 71 in WT: 239.863 lb WT: 108.8 kg BMI: 33.58 -Patient is alert and oriented. Normal affect. -Heart sounds are normal without murmur, gallop or rub. Heart rate and rhythm normal. -Lung sounds clear to auscultation. No chest wall pain noted. Normal respiratory effort without use of accessory muscles. Assessment/Plan 1. Status post inguinal hernia repair (Z98.890: Other specified postprocedural states) The patient is recovering post-surgery using ice to alleviate residual sensations. There is no need for acute intervention. Follow-up only if symptoms worsen. He is satisfied with recent surgical procedure results and was able to have umbilical hernia repaired at the same time as inguinal hernias. No surgical complications reported. 2. BMI 34.0-34.9,adult (Z68.34: Body mass index [BMI] 34.0-34.9, adult) The standard range for ages 18 and older is >=18.5 and < 25 kg/m2. Your BMI today was above this range, this falls in the overweight to obese category and there are medical benefits to weight loss. We can offer counselling, referral, and/or medical support in addressing this problem. Your BMI and weight management will be followed at subsequent visits. 3. Non-smoker (Z78.9: Other specified health status) Continue non-smoking status which contributes positively to overall health. No interventions are needed at this time. 4. Obesity (E66.9: Obesity, unspecified) Ongoing management includes use of Adipex for weight control, dietary vigilance post travel, and patient is advised on continuing lifestyle changes to aid in weight loss. Monitoring will continue, with prescriptions adjusted as needed. Ordered: phentermine, 37.5 mg = 1 tab(s), Oral, Daily, # 30 tab(s), Refills(s) 0, Pharmacy: [facility], 180, cm, 11/15/24 17:04:00 EDT, Height/Length Dosing, 112, kg, 11/15/24 17:04:00 EDT, Weight Dosing 5. History of urinary urgency (Z87.898: Personal history of other specified conditions) Patient with history of urinary symptoms and has follow-up with urology. Urinary symptoms have since resolved after having bilateral inguinal hernia repair and was told that the right side was strangulated in the left side was nearly strangulated. Has recovered well from recent surgery. 6. Physical exam (Z00.00: Encounter for general adult medical examination without abnormal findings) Recommend routine fasting blood work to be done prior to next visit. Orders placed to be done at [facility]. Ordered: CBC w/ Auto Diff Comprehensive Metabolic Panel [id number] Lipid Panel 7. Screening PSA (prostate specific antigen) (Z12.5: Encounter for screening for malignant neoplasm of prostate) Recommend routine yearly PSA. No current urinary symptoms reported. Ordered: PSA Screen, Total 8. Encounter for weight management (Z76.89: Persons encountering health services in other specified circumstances) Plan to resume Adipex as he has done well with weight loss on the medication. This patient has had a longstanding history of diet modification and routine physical activity without significant loss of body weight. This patient has a BMI greater than or equal to 30 or of 27 with at least 2 Co-morbidities identified by the [place] Administrative code Chapter 4731-11. This jorge (more content not included)... Normal [facility] Comment on above: Result Comment: Elec tronically Signed By: Gino Ackerman CNP\.br\Date and Time Signed: 11/16/24 07:48 EDT Ambulatory Visit Summaryon 0 11-15-2024 Ambulatory Visit Summary Ambulatory Visit Summary TIMMY HINDS Valerie :1980 Visit Date:11/15/2024 Ambulatory Visit Instructions Your Diagnosis Status post inguinal hernia repair BMI 34.0-34.9,adult Non-smoker Obesity History of urinary urgency Prediabetes Physical exam Dyslipidemia Screening PSA (prostate specific antigen) Your Care Team Attending Physician - Gino Ackerman CNP Primary Care Physician - Riedy INSULATION CUPOLA OPERATOR, Gino D This Is Your Medications List losartan (losartan 25 mg Tab) phentermine (Adipex-P 37.5 mg Tab) tadalafil (tadalafil 10 mg Tab) topiramate (Topamax 25 mg Tab) Procedures Performed Appendectomy, Hernia repair, Tonsillectomy. Discharge Vitals Heart Rate (Peripheral) 78 Respiratory Rate 16 Blood Pressure 120/78 Height 180 cm Height 71 in Weight 108.8 kg Weight 239.863 lb BMI 33.58 What to do next Scheduled Follow-Up Appointments Friday 4:00 PM EDT With: Gino Ackerman CNP Where: [facility] Medicine [address] [id number]- You Need to Schedule the Following Appointments Follow Up with Gino Ackerman CNP When: In 2 months Comments: Chronic, review lab, weight management, zzz Where: [address] [place] [phone] Medications What How Much When Why Instructions Changed phentermine (Adipex-P 37.5 mg Tab) 1 Tablets By Mouth Every day BMI 40.0-44.9, adult Obesity Pickup at [facility] 1448 Unchanged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 This patient has a BMI greater than or equal to 30 or of 27 with at least 2 Co-morbidities identified by the [place] Administrative code Chapter 4731-11. This patient has no known history of substance abuse. The patient is not per the patient report and/ or urine is negative in childbearing age women with functional reproductive organs. The patient is instructed to continue caloric intake reduction and physical activity for at least 30 minutes/day 5 days a week while taking the medication. Healthy nutrition education given and discussed. The patient is aware that the medication is prescribed on a hyblw-mf-omjea basis and can only be given for up to 3 consecutive months before a 6-month break from weight loss medication is warranted. If the patient loses 5% of body weight within the first 90 days of taking the medication, additional prescriptions can be given on a month to month basis. I have discussed prescribed this medication with my collaborating physician and I am aware of the guidelines for prescribing Adipex. OARRS report is reviewed and consistent with patient history. 4. BMI 35.0-35.9,adult (Z68.35: Body mass index [BMI] 35.0-35.9, adult) The patient is (more content not included)... Normal [facility] Comment on above: Result Comment: Elec tronically Signed By: Gino Ackerman CNP\.br\Date and Time Signed: 08/25/24 11:57 EST Ambulatory Visit Summaryon 0 08-23-2024 Ambulatory Visit Summary Ambulatory Visit Summary TIMMY HINDS Valerie :1980 Visit Date:08/23/2024 Ambulatory Visit Instructions Your Diagnosis Inguinal hernia, bilateral Abdominal pain in male Encounter for weight management BMI 35.0-35.9,adult Non-smoker Obesity HTN (hypertension) Frequent urination Benign prostatic hyperplasia (BPH) with urinary urgency Urgency of urination Your Care Team Attending Physician - Gino Ackerman CNP Primary Care Physician - Gino Ackerman CNP This Is Your Medications List losartan (losartan 25 mg Tab) phentermine (Adipex-P 37.5 mg Tab) tadalafil (tadalafil 10 mg Tab) topiramate (Topamax 25 mg Tab) [Image Removed: STOP]Stop taking these medications chlorhexidine topical (Hibiclens 4% Soap) diclofenac (diclofenac potassium 50 mg oral tablet) Procedures Performed Appendectomy, Hernia repair, Tonsillectomy. Discharge Vitals Heart Rate (Peripheral) 80 Respiratory Rate 18 Blood Pressure 126/82 Height 180 cm Height 71 in Weight 113.9 kg Weight 251.106 lb BMI 35.15 What to do next Scheduled Follow-Up Appointments Friday 5:00 PM EDT With: Gino Ackerman CNP Where: [facility] [address] [address]- You Need to Schedule the Following Appointments Follow Up with Gino Ackerman CNP When: In 2 months Comments: weight management, f/u after hernia surgery-blanco Where: Medications What How Much When Why Instructions Unchanged losartan (losartan 25 mg Tab) 1 Tablets By Mouth Every day HTN (hypertension) Dry cough with NAEL Pickup at [facility] 1448 Unchanged phentermine (Adipex-P 37.5 mg Tab) 1 Tablets By Mouth Every day BMI 40.0-44.9, adult Obesity disregard if Rx on file Pickup at [facility] 1448 Unchanged tadalafil (tadalafil 10 mg Tab) 1 Tablets By Mouth Every day as needed for for erectile dysfunction Pickup at [facility] 1448 Unchanged topiramate (Topamax 25 mg Tab) 1 Tablets By Mouth 2 times a day Pickup at [facility] 1448 Pharmacy Information [facility] 1448: [address] [place] [address] [phone] What How Much When Why Comments Stop Taking chlorhexidine topical (Hibiclens 4% Soap) 1 Application Topical Once Superficial bacterial skin infection Stop Taking diclofenac (diclofenac potassium 50 mg oral tablet) 1 Tablets By Mouth 3 times a day Strain of mid-back Strain of right latissimus dorsi muscle Medications and Immunizations Administered Not Given influenza virus vaccine, inactivated, Postpone due to refusal Allergies penicillin (Unknown) sulfa drugs (Unknown) Problems Ongoing - Any problem that you are currently receiving treatment for. Abdominal pain in male Allergic rhinitis Allergy to poison viviane Benign prostatic hyperplasia (BPH) with urinary urgency Dyslipidemia Encounter for weight management Frequent urination History of repair of hiatal hernia HTN (hypertension) Inguinal hernia, bilateral Obesity Osteoarthritis of elbows, bilateral Overactive bladder Physical exam Prediabetes Retention of urine Right elbow pain Snoring Strain of mid-back Strain of right latissimus dorsi muscle Stress Superficial bacterial skin infection Umbilical hernia Urinary frequency Weight gain Patient Survey You may receive a survey via text or e-mail asking about your office visit. Please share your experience with us by completing your survey. We appreciate your feedback and thank you for choosing us for your care. Education Materials DASH Eating Plan DASH stands for Dietary Approaches to Stop Hypertension. The DASH eating plan is a healthy eating plan that has been shown to: ??? Lower high blood pressure (hypertension). ??? Reduce your risk for type 2 diabetes, heart disease, and stroke. ??? Help with weight loss. What are tips for following this plan? Reading food labels ??? Check food labels for the amount of salt (sodium) per serving. Choose foods with less than 5 percent of the Daily Value (DV) of sodium. In general, foods with less than 300 milligrams (mg) of sodium per serving fit into this eating plan. ??? To find whole grains, look for the word whole as the first word in the ingredient list. Shopping ??? Buy products labeled as low-sodium or no salt added. ??? Buy fresh foods. Avoid canned foods and pre-made or frozen meals. Cooking ??? Try not to add salt when you cook. Use salt-free seasonings or herbs instead of table salt or sea salt. Check with your health care provider or pharmacist before using salt substitutes. ??? Do not parsons foods. Cook foods in healthy ways, such as baking, boiling, grilling, roasting, or broiling. ??? Cook using oils that are good for your heart. These include olive, canola, avocado, soybean, and sunflower oil. Meal planning ??? Eat a remigio (more content not included)... Normal [facility] Surgery Visit Reporton 08-09 Surgery Visit Report [facility] [address] [place] [address] OFFICE VISIT Date of Service: 08/09/24 MR#: [id number] Acct: [id number] Name: TIMMY HINDS Rep #: [id number] : 1980 Provider: Dr. Argelia simmons MD Age/Sex: 44/M Location: [facility] Status: Signed Intake Vital Signs 08/09/24 15:14 Height 5 ft 10 in Weight: 252 lb BMI 36.1 BP 130/88 H Blood Pressure Location Rt brachial Position Sitting Respiration 18 Pulse 84 Pulse Source Monitor Pulse Oximetry (%) 95 Oxygen Delivery Method room air Intake Visit Reasons: INGUINAL HERNIA Chief Complaint: inguinal and umbilcal hernias Is patient in pain?: Yes Allergies Penicillins (PCN) Allergy (Intermediate, Verified 08/09/24 15:17) Other Sulfa (Sulfonamide Antibiotics) Allergy (Intermediate, Verified 08/09/24 15:17) Other Medications ???Medication ???Instructions ???Recorded ???Confirmed ???Type losartan 25 mg tablet 10 mg PO QDAY 08/09/24 08/09/24 History phentermine 37.5 mg tablet 37.5 mg PO QDAY 08/09/24 08/09/24 History (Adipex-P) tadalafil 10 mg tablet 10 mg PO QDAY 08/09/24 08/09/24 History PFSH Medical History (Updated 08/11/24 @ 11:[address] Argelia Triplett MD) Traumatic diaphragmatic hernia HTN (hypertension) Surgical History (Updated 08/09/24 @ 15:12 by Shanice Brar) S/P LASIK surgery Family History (Updated 08/09/24 @ 15:13 by Shanice Brar) Father Hypertension Grandfather Cancer Social History (Updated 08/09/24 @ 15:14 by Shanice Brar) Smoking Status: Never smoker HPI HPI HPI: 44-year-old male presents due to right low back pain, right groin pain and issues with urinary incontinence/urgency . Patient did see urology but was only given some pills which he did have headaches from and did stop then he was switched over by his PCP to tadalifil for urinary issues. Patient states he has passed out a couple times when he is using the restroom states he does have increased pain and discomfort, but most in the right groin area. Patient also has been having some nausea before or after he eats more recently and also has some epigastric discomfort/bloating. Patient did have a CT of the posterior called bilateral inguinal hernias and small umbilical hernia. ROS General General: No weight change, appetite, fatigue, colon cancer or breast cancer HEENT HEENT: Yes eye surgery; No difficulty swallowing, eye injury, swollen glands or hoarseness Endo Endocrine: No thyroid disease, diabetes mellitus, thyroid cancer, Hair loss, heat intolerance or cold intolerance Skin Skin: No rash or changing moles Musc Musculoskeletal: Yes back problems; No arthritis, rheumatoid arthritis, gout or joint pain Cardio Cardiovascular: Yes high blood pressure; No murmur, pacemaker, heart disease, atrial fibrillation, heart attack, heart stent, palpitations, shortness of breat with exertion or chest pain Psych Psychiatric: No depression, anxiety or hearing voices Resp Respiratory: No shortness of breath, No sleep apnea, No cough, No COPD, No asthma, No emphysema and No wheezing Gastro Gastrointestinal: Yes abdominal pain, Yes nausea or vomiting, No diarrhea, No constipation, No blood in stool, No acid reflux, No hemorrhoids, No ulcers, No gallbladder problem and No black,tarry stools Alber Hematologic: No blood thinners, No blood disorders, No bleeding, No anemia and No blood clots Neuro Neurologic: No numbness and No tingling Exam Const General: cooperative, healthy appearing, comfortable and no acute distress [facility] Head: normocephalic and atraumatic Neck Neck: supple Resp Effort Inspection: normal respiratory effort Cardio Rate: regular rate GI Inspection: non-distended Palpation: soft and tender in the epigastrum, in the RLQ and in the LUQ Other: Umbilical hernia very small on exam/minimal, unable to discretely feel bilateral inguinal hernias which are called on CT abdomen pelvis. Skin General: no rashes or lesions noted Neuro General: CN's II-XI intact bilaterally Extrem General: normal to inspection Psych Mental Status: mental status grossly normal Attitude: cooperative Assessment and Plan Assessment and Plan (1) Bilateral inguinal hernia: Status: Acute (2) Epigastric abdominal pain: Status: Acute Plan Discussed with patient that for the epigastric pain and nausea would recommend trying uzne-iyo-smboyva omeprazole for a couple weeks to see if that improves. Plan to do a robotic right inguinal hernia repair with mesh, possible bilateral. Reviewed the procedure with the patient including the risks, including but not limited to infection, bleeding, paresthesia, chronic pain, injury to small bowel or contents of the spermatic cord, and recurrenc (more content not included)... Normal [facility] Family Medicine Office/Clini c Noteon 07-27-2024 Family Medicine Office/Clinic Note Family Medicine Office/Clinic Note Chief Complaint Weight Mgmt The patient presents with urinary symptoms and discomfort related to hernias. HPI Staff Patient is here for 1 month Weight management Concerns:In a lot of pain Discuss Cialis Refills:Adipex Adipex #:9 Started at 131.2 kg-288.64 lbs 1st month on medication: 127.1 kg-280.2 lbs 2nd month on medication: 123.5 kg-271.7 lbs Weight after 3rd refill:124.1_ kg-273.4 lbs Weight after 4th refill: 120.1 kg-264 lbs Weight after 5th refillL 117.4 kg-258.28 lbs Weight after 6th refill: 115.6 kg-255 lbs Weight after 7th refill: 114.7 kg-253 lbs Weight after 8th refill: 114.9 kg-253.2 lbs Weight after 9th refill: 114.2 kg-251.8 lbs Sleeping well:Yes, 6-8 hours Chest pain:No Tremors:No Headaches:No Heart fluttering:No Blurred Vision:No Eating habits:Eating smaller, more frequent healthy meals Exercise:_ Blood pressure:Reviewed, _ Health Maintenance: Colonoscopy:Due PSA:10/11/2023 Last Labs:02/21/2024 History of Present Illness The patient is a 44-year-old male presenting for follow-up on urinary symptoms and management of hernias. He reports ongoing issues with pelvic discomfort and symptoms associated with urinary retention. The patient has a history of bilateral inguinal and umbilical hernias, and has previously undergone surgical repair of a hiatal hernia. He experiences significant urinary symptoms suggestive of retention, while also dealing with overactive bladder symptoms. He notes circumstances where urinary urgency and a sensation of incomplete bladder emptying are prevalent. The challenges have persisted for some time and are exacerbated by physical activity, ultimately impacting his daily activities, including work responsibilities. The patient acknowledges the complex nature of balancing hydration and urinary symptoms while managing inguinal discomfort. Review of Systems PHQ Score Initial Depression Screen Score: 0 SCORE - Gastrointestinal: Reports diet changes; denies frequent bowel issues. - Musculoskeletal: Reports generalized discomfort, particularly in the knees and pelvis. - Neurological: Denies significant dizziness or vertigo unrelated to urinary events. Physical Exam Vitals & Measurements HR: 82(Peripheral) RR: 16 BP: 138/88 SpO2: 96% HT: 71 in HT: 180 cm WT: 114.2 kg WT: 251.768 lb BMI: 35.25 - Gastrointestinal- Notable for minimal umbilical hernia size. No tenderness to palpation of this area. Inguinal physical examination is deferred. -Patient is alert and oriented. Normal affect. -Heart sounds are normal without murmur, gallop or rub. Heart rate and rhythm normal. -Lung sounds clear to auscultation. No chest wall pain noted. Normal respiratory effort without use of accessory muscles. Assessment/Plan 1. Inguinal hernia, bilateral (K40.20: Bilateral inguinal hernia, without obstruction or gangrene, not specified as recurrent) Referral to a career development specialist is to be made for evaluation and potential repair, with consideration of the patient's significant symptoms and risk for further complications. This is to prevent possible obstruction and alleviate urinary symptoms. We discussed that CT scan showed no abnormality of the GI system or urinary system. Vascular system showed no abnormal findings either. Based on progression of symptoms with the urinary system, feel that hernia to the inguinal area is compromising urinary flow. Can continue medication to help promote urinary flow as this been no side effects with the tadalafil reported. Ordered: [facility] External Ambulatory Referral 2. Encounter for weight management (Z76.89: Persons encountering health services in other specified circumstances) The patient's engagement in weight management is critical to managing comorbid conditions. Further follow-up appointments are suggested to monitor weight loss progress and adjust strategies as needed. 3. BMI 35.0-35.9,adult (Z68.35: Body mass index [BMI] 35.0-35.9, adult) The importance of continued weight management was emphasized, as obesity contributes to exacerbating the patient's hernias and urinary symptoms. The patient should maintain dietary modifications and regular physical activity. A referral for dietary counseling is advisable. 4. Non-smoker (Z78.9: Other specified health status) Continue non-smoking status which contributes positively to overall health. No interventions are needed at this time. 5. Obesity (E66.9: Obesity, unspecified) Excess weight may lead to disease. Small changes such as drinking 3-4 liters of water or eating nutrient dense foods like lean meats, leafy green vegetables, berries, apples, avocados, lentils, sweet potatoes, and fiber reduce caloric intake. Consuming a variety of healthy foods most days of the week is more sustainable than following a fad diet. Increasing physical activity to 150 minutes of walking/strength training per week and sleeping 7-9 hours per day reduces cortisol an (more content not included)... Normal [facility] Comment on above: Result Comment: Elec tronically Signed By: Gino Ackerman CNP\.br\Date and Time Signed: 07/27/24 12:23 EST Ambulatory Visit Summaryon 1 Ambulatory Visit Summary Ambulatory Visit Summary TIMMY HINDS Valerie :1980 Visit Date:07/26/2024 Ambulatory Visit Instructions Your Diagnosis Encounter for weight management BMI 35.0-35.9,adult Non-smoker Obesity Overactive bladder Retention of urine Inguinal hernia, bilateral Umbilical hernia History of repair of hiatal hernia Your Care Team Attending Physician - Gino Ackerman CNP Primary Care Physician - Gino Ackerman CNP This Is Your Medications List phentermine (Adipex-P 37.5 mg Tab) tadalafil (tadalafil 10 mg Tab) Contact prescribing physician if questions or concerns chlorhexidine topical (Hibiclens 4% Soap) diclofenac (diclofenac potassium 50 mg oral tablet) losartan (losartan 25 mg Tab) topiramate (Topamax 25 mg Tab) Procedures Performed Appendectomy, Hernia repair, Tonsillectomy. Discharge Vitals Heart Rate (Peripheral) 82 Respiratory Rate 16 Blood Pressure 138/88 Height 180 cm Height 71 in Weight 114.2 kg Weight 251.768 lb BMI 35.25 What to do next Scheduled Follow-Up Appointments Friday 2:40 PM EST With: BRODIE PATEL MD Where: [facility] [address], [address] [place] [address]- Friday 5:00 PM EST With: Gino Ackerman CNP Where: [facility] [place] [address] [place] [address]- You Need to Schedule the Following Appointments Follow Up with Gino Ackerman CNP When: In 2 weeks Where: Someone Will Contact You Regarding These Appointments [facility] External Ambulatory Referral, Surgery, 07/26/24 17:20:00 EST, Inguinal hernia, bilateral Umbilical hernia Medications What How Much When Why Instructions Unchanged phentermine (Adipex-P 37.5 mg Tab) 1 Tablets By Mouth Every day BMI 40.0-44.9, adult Obesity disregard if Rx on file Pickup at [facility] 1448 Unchanged tadalafil (tadalafil 10 mg Tab) 1 Tablets By Mouth Every day as needed for for erectile dysfunction Unchanged chlorhexidine topical (Hibiclens 4% Soap) 1 Application Topical Once Superficial bacterial skin infection Contact prescribing physician if questions or concerns Unchanged diclofenac (diclofenac potassium 50 mg oral tablet) 1 Tablets By Mouth 3 times a day Strain of mid-back Strain of right latissimus dorsi muscle Contact prescribing physician if questions or concerns Unchanged losartan (losartan 25 mg Tab) 1 Tablets By Mouth Every day HTN (hypertension) Dry cough with NAEL Contact prescribing physician if questions or concerns Unchanged topiramate (Topamax 25 mg Tab) 1 Tablets By Mouth 2 times a day Contact prescribing physician if questions or concerns Pharmacy Information [facility] 1448: [address] [place], [place] [phone] Medications and Immunizations Administered Not Given influenza virus vaccine, inactivated, Postpone due to refusal Allergies penicillin (Unknown) sulfa drugs (Unknown) Problems Ongoing - Any problem that you are currently receiving treatment for. Allergic rhinitis Allergy to poison viviane Benign prostatic hyperplasia (BPH) with urinary urgency Dyslipidemia Encounter for weight management Frequent urination History of repair of hiatal hernia HTN (hypertension) Inguinal hernia, bilateral Obesity Osteoarthritis of elbows, bilateral Overactive bladder Physical exam Prediabetes Retention of urine Right elbow pain Snoring Strain of mid-back Strain of right latissimus dorsi muscle Stress Superficial bacterial skin infection Umbilical hernia Urinary frequency Weight gain Patient Survey You may receive a survey via text or e-mail asking about your office visit. Please share your experience with us by completing your survey. We appreciate your feedback and thank you for choosing us for your care. Education Materials DASH Eating Plan DASH stands for Dietary Approaches to Stop Hypertension. The DASH eating plan is a healthy eating plan that has been shown to: ??? Lower high blood pressure (hypertension). ??? Reduce your risk for type 2 diabetes, heart disease, and stroke. ??? Help with weight loss. What are tips for following this plan? Reading food labels ??? Check food labels for the amount of salt (sodium) per serving. Choose foods with less than 5 percent of the Daily Value (DV) of sodium. In general, foods with less than 300 milligrams (mg) of sodium per serving fit into this eating plan. ??? To find whole grains, look for the word whole as the first word in the ingredient list. Shopping ??? Buy products labeled as low-sodium or no salt added. ??? Buy fresh foods. Avoid canned foods and pre-made or frozen meals. Cooking ??? Try not to add salt when you cook. Use salt-free seasonings or herbs instead of table salt or sea salt. Check with your health care provider or pharma (more content not included)... Normal [facility] CREATININE FINGERSTICKon Creatinine [Mass/Vol] 1.2 mg/dL Normal 0.70-1.30 [facility] Comment on above: Performed By: #### L 9100.0200 #### [facility] [address] [place], [place], [id number] EGFR WB > 60.0000 Normal >60 [facility] Comment on above: Performed By: #### L 9100.0200 #### [facility] [address] [place], [address] CT Abd/Pelvis W/WO Contrasto 07-19-2024 CT Abd/Pelvis W/WO Contrast [facility] [address] [place] [address] CT Abd/Pelvis W/WO Contrast MR#: [id number] Acct: [id number] Name: TIMMY HINDS Rep #: [id number] : 1980 M 44 From: Papa zelaya DO PCP: [facility] Status: REG CLI Study: CT Abd/Pelvis W/WO Contrast Date of Exam: 06/28 10/18 Exam# [id number] Ordering Dr: Gino Ackerman NP [id number] EXAM: CT ABDOMEN AND PELVIS WITHOUT AND WITH INTRAVENOUS CONTRAST CLINICAL INDICATION: Retention of urine, unspecified x 1 mon TECHNIQUE: Helically acquired images were obtained of the abdomen and pelvis without and with intravenous contrast. Venous and delayed phase postcontrast imaging. This CT exam was performed using one or more of the following dose reduction techniques: automated exposure control, adjustment of the mA and/or kV according to patient size, and/or use of iterative reconstruction technique. CONTRAST: IV 100mL Isovue-370 COMPARISON: No relevant prior studies available. FINDINGS: LOWER THORAX: No significant abnormality. Lung bases are clear. No cardiomegaly. No significant pericardial effusion. ABDOMEN: LIVER: No significant abnormality. Homogeneous. No focal mass. GALLBLADDER AND BILE DUCTS: No significant abnormality. No calcified gallstones. No gallbladder distention or wall edema. No intra- or extrahepatic biliary ductal dilation. PANCREAS: No significant abnormality. No focal cystic or solid mass. SPLEEN: No significant abnormality. Normal size without focal cystic or solid mass. ADRENALS: No significant abnormality. No nodules. KIDNEYS AND URETERS: No significant abnormality. Normal renal size and position. Normal excretory appearance of the bilateral kidneys. No hydronephrosis or urolithiasis identified. No focal solid or cystic renal lesion. STOMACH AND BOWEL: Diverticulosis of the colon without evidence of acute diverticulitis. No stomach or bowel distention. PELVIS: APPENDIX: Status post appendectomy. BLADDER: No significant abnormality. Normal appearance of the urinary bladder. REPRODUCTIVE: Normal as visualized. No mass. ABDOMEN and PELVIS: INTRAPERITONEAL SPACE: No significant abnormality. No ascites or other fluid collection. No free air. RETROPERITONEAL SPACE: No significant abnormality. No retroperitoneal fluid collection. BONES/JOINTS: No significant abnormality. No suspicious lytic or blastic abnormality. SOFT TISSUES: Fat-containing bilateral inguinal hernias and small fat-containing umbilical hernia. VASCULATURE: No significant abnormality. Abdominal aorta is non-dilated. LYMPH NODES: No significant abnormality. No enlarged lymph nodes. CT/CT Abd/Pelvis W/WO Contrast IMPRESSION: 1. No evidence of urinary tract pathology identified. Consider follow-up urology consultation if not already performed. 2. Status post appendectomy. Electronically Signed: Papasangeeta Rios, at 22:30 EST , CC: MILES Ackerman Front End Wheel Loader Operator: Signed Alexandra [facility] Urineon 06-24-2024 Bacteria identified Cx Nom (U) Microbiology PROCEDURE: Urine Culture [R1] SOURCE: U Random BODY SITE: COLLECTED DATE/TIME: 06/21/2024 19:17 EST RECEIVED DATE/TIME: 06/22/2024 18:01 EST START DATE/TIME: 06/22/2024 18:01 EST FREE TEXT SOURCE: Gino Ackerman CNP, CNP, Melinda D FINAL REPORTS Final Report [] Verified Date/Time: 06/24/2024 08:57 EST 200 cfu/ml Mixed skin contaminants Performing Locations R1: This test was performed at: [facility], [address] [place] [address], [id number] , , [facility] Comment on above: Performed By: #### 2 [id number] #### [facility] [address] [place] [address] Family Medicine Office/Clini c Noteon 06-22-2024 Family Medicine Office/Clinic Note Family Medicine Office/Clinic Note Chief Complaint 6 week Weight Management The patient presents with challenges in urinary control, specifically frequent urgency of urination disproportionate to actual urinary volume. HPI Staff Patient is here for 6 week Weight Management Concerns:Does not see a difference in Urinary symptoms Refills:Adipex Adipex #:8 Started at 131.2 kg-288.64 lbs 1st month on medication: 127.1 kg-280.2 lbs 2nd month on medication: 123.5 kg-271.7 lbs Weight after 3rd refill:124.1 kg-273.4 lbs Weight after 4th refill: 120.1 kg-264 lbs Weight after 5th refill: 117.4 kg-258.28 lbs Weight after 6th refill: 115.6 kg-255 lbs Weight after 7th refill: 114.7 kg-253 lbs Weight after 8th refill: 114.9 kg-253.2 lbs Sleeping well:Yes, 6-8 hours Chest pain:No Tremors:No Headaches:No Heart fluttering:No Blurred Vision:No Eating habits:Eating smaller, more frequent healthy meals Exercise:Daily exercise Blood pressure:Reviewed, _ Health Maintenance: Colonoscopy:Due PSA:10/11/2023 Last Labs:02/21/2024 History of Present Illness The patient is a 44-year-old male presenting for follow-up on weight management and complaints of lower urinary tract symptoms, primarily related to benign prostatic hyperplasia (BPH). He reports a history of longstanding urinary issues, characterized by frequent urination and pronounced urgency, occasionally resulting in incontinence before reaching the restroom. The symptoms have progressively worsened over time, significantly interfering with his daily activities. He mentions using a backpack blower and experiencing extreme urgency during yard work, limiting his capacity for prolonged tasks. Additionally, the patient describes intermittent variations in urinary flow, ranging from normal to significantly reduced force, without consistent obstruction relief. He has previously consulted with a urologist, but dissatisfaction with the evaluation prompted consideration of second opinions and further diagnostic imaging to rule out any additional causes. The patient denies improvement with overactive bladder medications and expresses frustration with the detrimental impact on his quality of life, including social obligations and work responsibilities. His current management strategies have included lifestyle modifications and discussion of medication adjustment without significant amelioration. The patient has been seeking additional diagnostic assessments and possible therapeutic adjustments to address these urinary challenges. Review of Systems PHQ Score Initial Depression Screen Score: 0 SCORE - Genitourinary: Reports urinary urgency, frequency, and variable flow. Denies urinary foam or blood. Physical Exam Vitals & Measurements HR: 78(Peripheral) RR: 16 BP: 128/82 SpO2: 96% HT: 71 in HT: 180 cm WT: 114.9 kg WT: 253.311 lb BMI: 35.46 -Patient is alert and oriented. Normal affect. -Heart sounds are normal without murmur, gallop or rub. Heart rate and rhythm normal. -Lung sounds clear to auscultation. No chest wall pain noted. Normal respiratory effort without use of accessory muscles. Assessment/Plan 1. Benign prostatic hyperplasia (BPH) with urinary urgency (N40.1: Benign prostatic hyperplasia with lower urinary tract symptoms) The patient continues to exhibit significant lower urinary tract symptoms despite prior medical management. A referral to urology is initiated for further assessment, and a CT urogram is ordered to evaluate potential urinary obstructions. Tadalafil dosages have been discussed, and incrementing to a higher dose may be contemplated based on urology recommendations. Ordered: CT Urogram [facility] Internal Ambulatory Referral 2. Encounter for weight management (Z76.89: Persons encountering health services in other specified circumstances) This patient has had a longstanding history of diet modification and routine physical activity without significant loss of body weight. This patient has a BMI greater than or equal to 30 or of 27 with at least 2 Co-morbidities identified by the [place] Administrative code Chapter 4731-11. This patient has no known history of substance abuse. The patient is not per the patient report and/ or urine is negative in childbearing age women with functional reproductive organs. The patient is instructed to continue caloric intake reduction and physical activity for at least 30 minutes/day 5 days a week while taking the medication. Healthy nutrition education given and discussed. The patient is aware that the medication is prescribed on a lpphq-ip-agoil basis and can only be given for up to 3 consecutive months before a 6-month break from weight loss medication is warranted. If the patient loses 5% of body weight within the first 90 days of taking the medication, additional prescriptions can be given on a month to month basis. I have discussed prescribed this medication with my collaborating physician and I (more content not included)... Normal [facility] Comment on above: Result Comment: Elec tronically Signed By: Gino Ackerman CNP.kushal\Date and Time Signed: 06/22/24 15:06 EST Urinalysis with Microon 11- Bilirubin Ql (U) Negative Normal Negative [facility] Comment on above: Performed By: #### 4 [id number] #### [facility] [address] [place] [address] Clarity (U) Clear Normal Clear [facility] Comment on above: Performed By: #### 4 [id number] #### [facility] [address] [place] [address] Color (U) Light-Yellow Normal Yellow [facility] Comment on above: Result Comment: Micr oscopic readings are only performed on those samples that meet specific criteria set forth by [facility]. Performed By: #### 4 [id number] #### [facility] [address] [place] [address] Glucose Ql (U) Negative Normal Negative [facility] Comment on above: Performed By: #### 4 [id number] #### [facility] [address] [place] [address] Hemoglobin Auto test strip (U) [Mass/Vol] Negative Normal Negative [facility] Comment on above: Performed By: #### 4 [id number] #### [facility] [address] [place] [address] Ketones Auto test strip Ql (U) Negative Normal Negative [facility] Comment on above: Performed By: #### 4 [id number] #### [facility] [address] [place] [address] Leukocyte esterase Auto test strip Ql (U) Negative Normal Negative [facility] Comment on above: Performed By: #### 4 [id number] #### [facility] [address] [place] [address] Nitrite Auto test strip Ql (U) Negative Normal Negative [facility] Comment on above: Performed By: #### 4 [id number] #### [facility] [address] [place] [address] pH (U) 5.0 [pH] Invalid Interpretation Code 5.0-9.0 [facility] Comment on above: Performed By: #### 4 [id number] #### [facility] [address] [place] [address] Protein Ql (U) Negative Normal Negative [facility] Comment on above: Performed By: #### 4 [id number] #### [facility] [address] [place] [address] Specific gravity (U) [Rel density] 1.010 Invalid Interpretation Code 1.005-1.030 [facility] Comment on above: Performed By: #### 4 [id number] #### [facility] [address] [place] [address] Urobilinogen (U) [Mass/Vol] Negative Normal Negative [facility] Comment on above: Performed By: #### 4 [id number] #### [facility] [address] [place] [address] URINALYSISOrdered By: Abbie Catherine on 06-21-2024 UA Spec Desc Random Urine (06/21/24 7:17 PM) Normal [facility] UA Auto SS Urinalysis with Microon 05-29 Type of Urine collection method Random Urine Normal [facility] Comment on above: Performed By: #### 4 [id number] #### [facility] [address] [place] [address] Ambulatory Visit Summaryon 1 Ambulatory Visit Summary Ambulatory Visit Summary TIMMY HINDS :1980 Visit Date:05/03/2024 Ambulatory Visit Instructions Your Diagnosis HTN (hypertension) Encounter for weight management BMI 35.0-35.9,adult Non-smoker Benign prostatic hyperplasia (BPH) with urinary urgency Allergy to poison viviane Obesity Urinary frequency Your Care Team Attending Physician - Gino Ackerman CNP Primary Care Physician - Gino Ackerman CNP This Is Your Medications List phentermine (Adipex-P 37.5 mg Tab) tadalafil (Cialis 5 mg oral tablet) tadalafil (tadalafil 5 mg oral tablet) Contact prescribing physician if questions or concerns chlorhexidine topical (Hibiclens 4% Soap) diclofenac (diclofenac potassium 50 mg oral tablet) losartan (losartan 25 mg Tab) [Image Removed: STOP]Stop taking these medications oxybutynin (Ditropan XL 10 mg Tab-ER) Procedures Performed Appendectomy, Hernia repair, Tonsillectomy. Discharge Vitals Heart Rate (Peripheral) 82 Respiratory Rate 16 Blood Pressure 138/86 Height 180 cm Height 71 in Weight 114.7 kg Weight 252.34 lb BMI 35.4 What to do next Scheduled Follow-Up Appointments Friday 6:20 PM EST With: Gino Ackerman CNP Where: [address] [address]- You Need to Schedule the Following Appointments Follow Up with Gino Ackerman CNP When: In 6 weeks Comments: Weight management- 06-21-24 620- [phone] slot Where: [address] [place] [id number] [phone] Medications What How Much When Why Instructions Changed tadalafil (Cialis 5 mg oral tablet) 1 Tablets By Mouth Every day as needed for for erectile dysfunction Benign prostatic hyperplasia (BPH) with urinary urgency Urgency of urination Changed tadalafil (tadalafil 5 mg oral tablet) 1 Tablets By Mouth Every day For BPH with lower urinary symptoms Pickup at [facility] 1448 Unchanged phentermine (Adipex-P 37.5 mg Tab) 1 Tablets By Mouth Every day BMI 40.0-44.9, adult Obesity disregard if Rx on file Pickup at [facility] 1448 Unchanged chlorhexidine topical (Hibiclens 4% Soap) 1 Application Topical Once Superficial bacterial skin infection Contact prescribing physician if questions or concerns Unchanged diclofenac (diclofenac potassium 50 mg oral tablet) 1 Tablets By Mouth 3 times a day Strain of mid-back Strain of right latissimus dorsi muscle Contact prescribing physician if questions or concerns Unchanged losartan (losartan 25 mg Tab) 1 Tablets By Mouth Every day HTN (hypertension) Dry cough with NAEL Contact prescribing physician if questions or concerns Pharmacy Information [facility] 1448: [address] [place], [place] [phone] What How Much When Why Comments Stop Taking oxybutynin (Ditropan XL 10 mg Tab-ER) 1 Tablets By Mouth Every day Benign prostatic hyperplasia (BPH) with urinary urgency Frequent urination Overactive bladder Medications and Immunizations Administered Not Given influenza virus vaccine, inactivated, Postpone due to refusal Allergies penicillin (Unknown) sulfa drugs (Unknown) Problems Ongoing - Any problem that you are currently receiving treatment for. Allergic rhinitis Allergy to poison viviane Benign prostatic hyperplasia (BPH) with urinary urgency Dyslipidemia Encounter for weight management Frequent urination HTN (hypertension) Obesity Osteoarthritis of elbows, bilateral Overactive bladder Physical exam Prediabetes Right elbow pain Snoring Strain of mid-back Strain of right latissimus dorsi muscle Stress Superficial bacterial skin infection Urinary frequency Weight gain Patient Survey You may receive a survey via text or e-mail asking about your office visit. Please share your experience with us by completing your survey. We appreciate your feedback and thank you for choosing us for your care. Education Materials Hypertension, Adult High blood pressure (hypertension) is [...] pressure should be below 120/80. The first (top) number is called the systolic pressure. It is a measure of the pressure in your arteries as your heart beats. The second (bottom) number is called the diastolic pressure. It is a measure of the pressure in your arteries as the heart relaxes. What are the causes? The exact cause of this condition is not known. There are some conditions that result in high blood pressure. What incr (more content not included)... Normal [facility] Family Medicine Office/Clini c Noteon 05-03-2024 Family Medicine Office/Clinic Note Family Medicine Office/Clinic Note Chief Complaint The patient presents for weight management evaluation and concerns regarding ineffective BPH medication. HPI Staff Patient is here for 1 month Weight Management Concerns:Would like to go back on Cialis Refills:Adipex Adipex #:7 Started at 131.2 kg 288.64 lbs 1st month on medication: 127.1 kg-280.2 lbs 2nd month on medication: 123.5 kg-271.7 lbs Weight after 3rd refill:124.1 kg-273.4 lbs Weight after 4th refill: 120.1 kg-264 lbs Weight after 5th refill: 117.4 kg-258.28 lbs Weight after 6th refill: 115.6 kg- 255 lbs Weight after 7th refill:114.7 kg-253 lbs Sleeping well:Yes, 6-8 hours Chest pain:No Tremors:No Headaches:No Heart fluttering:No Blurred Vision:No Eating habits:Eating smaller, more frequent healthy meals Exercise:_ Blood pressure:Reviewed, _ Health Maintenance: Colonoscopy:Due PSA:10/11/2023 Last Labs:02/21/2024 History of Present Illness The patient is a 43-year-old male presenting with a history of obesity and benign prostatic hyperplasia (BPH) with urinary urgency. He is attending the follow-up visit for weight management and is currently on Atopax. He has managed to lose weight, documented at 252 pounds from 273 pounds as of November this year, showing progress in his weight management plan. The patient reports no adverse effects from the current medication. Prior to this visit, he had maintained stable blood pressure levels and stable findings in recent blood tests performed over the summer. The patient additionally reports issues with his current medication for BPH, expressing that it has exacerbated his symptoms of urinary frequency rather than alleviating them. The current treatment plan includes Cialis at 5 mg, taken daily, intended to ameliorate symptoms by relaxing the muscles in the prostate and bladder neck. 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 The urgency condition has intensified recently, with increased occurrences during the day that necessitate frequent urination, which he recounts through a descriptive incident while traveling. The patient has previously taken another unspecified medication for BPH which he finds more effective, requesting to revert to that therapy. He is under consideration for alternative treatment strategies should there be no improvement with readjusting medications. Review of Systems PHQ Score Initial Depression Screen Score: 0 SCORE - Genitourinary: Reports urinary frequency. - Cardiovascular: Denies adverse effects from hypertension medication. Physical Exam Vitals & Measurements HR: 82(Peripheral) RR: 16 BP: 138/86 SpO2: 96% HT: 71 in HT: 180 cm WT: 114.7 kg WT: 252.34 lb BMI: 35.4 Patient is alert and oriented to person place and time. Appears to be well-nourished. Heart sounds are normal without murmur, gallop or rub. Heart rate and rhythm normal. Lung sounds clear to auscultation. No chest wall pain noted. Normal respiratory effort without use of accessory muscles. Assessment/Plan 1. HTN (hypertension) (I10: Essential (primary) hypertension) Blood pressure was well-controlled. Continue low-salt diet. Continue losartan 25 mg daily. Reviewed recent fasting blood test results from the summer and recommend blood work about every 6 months. Tends to have done through [facility] and the [employer] where his is employed. The importance of the following were all reviewed with the patient: -Take medications as prescribed. - Recommended following the TLC Lipid Diet which is a low fat/low cholesterol diet for high cholesterol. - More information about this eating plan can be found here: http://tlcdiet.org - To improve your health we recommend increasing your level of moderate exercise to at least 2.5 hrs per week. For more information, please visit the CDC Exercise and Fitness Recommendations at www.cdc.gov/physical activity/basics/inde x.htm 2. Encounter for weight management (Z76.89: Persons encountering health services in other specified circumstances) This patient has had a longstanding history of diet modification and routine physical activity without significant loss of body weight. This patient has a BMI greater than or equal to 30 or of 27 with at least 2 Co-morbidities identified by the [place] Administrative code Chapter 4731-11. This patient has no known history of substance abuse. The patient is not per the patient report and/ or urine is negative in childbearing age women with functional reproductive organs. The patient is instructed to continue caloric intake reduction and physical activity for at least 30 minutes/day 5 days a week while taking the medication. Healthy nutrition education given and discussed. The patient is aware that the medication is prescribed on a ffllm-ai-bdjng basis and can only be given for up to 3 consecutive months before a 6- (more content not included)... Normal [facility] Comment on above: Result Comment: Elec troamericaally Signed By: Gino Ackerman CNP\.kushal\Date and Time Signed: 05/03/24 18:13 EDT Family Medicine Office/Clini c Noteon 03-16-2024 Family Medicine Office/Clinic Note Family Medicine Office/Clinic Note Chief Complaint 1 mo fu HPI Staff Patient here today for lab/ med review. questions/concerns: needs refill of Hibiclens soap, Cialis not working, thinks he has over active bladder History of Present Illness Timmy Hinds is a 43-year-old male who is here today for weight management and follow-up on symptoms. Blood pressure is mildly elevated today at 142/92 mmHg. He has had additional weight loss since our last visit. OARRS report is reviewed, consistent with patient history. The medication list is up to date and reviewed. He is currently on Adipex for weight management. He endorses that he has lost 6 pounds in the last month with Adipex. He reports that Cialis has not made a noticeable difference. He continues to experience frequent urination, which he suspects may be due to an overactive bladder. He has been on Proscar and Flomax but did not notice an improvement in symptoms. He denies blood in the urine, dysuria, or any new onset symptoms. Review of Systems PHQ Score Initial Depression Screen Score: 0 SCORE All negative except as noted in the HPI. Physical Exam Vitals & Measurements HR: 85(Peripheral) BP: 132/88 SpO2: 95% HT: 71 in HT: 180 cm WT: 117.4 kg WT: 258.28 lb BMI: 36.23 Patient is alert and oriented to person place and time. Appears to be well-nourished. Normal affect. Neck is supple no adenopathy noted. No enlarged thyroid detected. Heart sounds are normal without murmur, gallop, or rub. Heart rate and rhythm normal. Lung sounds clear to auscultation. No chest wall pain noted. Normal respiratory effort without use of accessory muscles. Bowel sounds are normal to auscultation in all 4 quadrants. No abdominal tenderness noted. No masses, guarding or rebound. Assessment/Plan 1. HTN (hypertension) (I10: Essential (primary) hypertension) Improved with recheck. Continue current dose of losartan 25 mg. No reported side effects. Continue a low salt diet. The importance of the following were all reviewed with the patient: -Take medications as prescribed. - Recommended following the TLC Lipid Diet which is a low fat/low cholesterol diet for high cholesterol. - More information about this eating plan can be found here: http://tlcdiet.org - To improve your health we recommend increasing your level of moderate exercise to at least 2.5 hours per week. For more information, please visit the CDC Exercise and Fitness Recommendations at www.cdc.gov/physical activity/basics/inde x.htm 2. BMI 36.0-36.9,adult (Z68.36: Body mass index [BMI] 36.0-36.9, adult) The standard range for ages 18 and older is >=18.5 and < 25 kg/m2. Your BMI today was above this range, this falls in the overweight to obese category and there are medical benefits to weight loss. We can offer counselling, referral, and/or medical support in addressing this problem. Your BMI and weight management will be followed at subsequent visits. 3. Frequent urination (R35.0: Frequency of micturition) History of BPH. He has been on Proscar and Flomax but did not notice an improvement in symptoms. Considering the possibility of overactive bladder. No blood in the urine, no dysuria, and no new onset symptoms. He is urinating more frequently with less time between urges. A trial of Ditropan was discussed. Ordered: oxybutynin, 10 mg = 1 tab(s), Oral, Daily, # 30 tab(s), Refills(s) 2, Pharmacy: [facility], 180, cm, 03/15/24 16:07:00 EDT, Height/Length Dosing, 117.4, kg, 03/15/24 16:07:00 EDT, Weight Dosing 4. Benign prostatic hyperplasia (BPH) with urinary urgency (N40.1: Benign prostatic hyperplasia with lower urinary tract symptoms) Ordered: oxybutynin, 10 mg = 1 tab(s), Oral, Daily, # 30 tab(s), Refills(s) 2, [facility] 180, cm, 03/15/24 16:07:00 EDT, Height/Length Dosing, 117.4, kg, 03/15/24 16:07:00 EDT, Weight Dosing 5. Non-smoker (Z78.9: Other specified health status) Continue to refrain from smoking. 6. Obesity (E66.9: Obesity, unspecified) Documentation of time spent: Excess weight may lead to disease. Small changes such as drinking 3-4 liters of water or eating nutrient dense foods like lean meats, leafy green vegetables, berries, apples, avocados, lentils, sweet potatoes, and fiber reduce caloric intake. Consuming a variety of healthy foods most days of the week is more sustainable than following a fad diet. Increasing physical activity to 150 minutes of walking/strength training per week and sleeping 7-9 hours per day reduces cortisol and insulin levels that contribute to weight gain. Ordered: phentermine, 37.5 mg = 1 tab(s), Oral, Daily, disregard if Rx on file, # 30 tab(s), Refills(s) 0, Pharmacy: [facility], 180, cm, 03/15/24 16:07:00 EDT, Height/Length Dosing, 117.4, kg, 03/15/24 16:07:00 EDT, Weight Dosing 7. Overactive bladder (N32.81: Overactive bladder) Discussed likely overactive bladder and possible side effects of Ditropan. Ordered: oxybutynin, 10 mg (more content not included)... Normal [facility] Comment on above: Result Comment: Elec tronically Signed By: Gino Ackerman CNP\.br\Date and Time Signed: 03/16/24 09:52 EDT\.br\Electronically Co-Signed By: Suraj Dupont\.br\Date and Time Co-Signed: 03/16/24 09:05 EDT Ambulatory Visit Summaryon 0 03-15-2024 Ambulatory Visit Summary Ambulatory Visit Summary HINDSTIMMY :1980 Visit Date:03/15/2024 Ambulatory Visit Instructions Your Diagnosis HTN (hypertension) BMI 36.0-36.9,adult Frequent urination Benign prostatic hyperplasia (BPH) with urinary urgency Non-smoker Obesity Overactive bladder Encounter for weight management Your Care Team Attending Physician - Gino Ackerman CNP Primary Care Physician - Gino Ackerman CNP This Is Your Medications List chlorhexidine topical (Hibiclens 4% Soap) oxybutynin (Ditropan XL 10 mg Tab-ER) phentermine (Adipex-P 37.5 mg Tab) Contact prescribing physician if questions or concerns diclofenac (diclofenac potassium 50 mg oral tablet) losartan (losartan 25 mg Tab) tadalafil (Cialis 5 mg oral tablet) Procedures Performed Appendectomy, Hernia repair, Tonsillectomy. Discharge Vitals Heart Rate (Peripheral) 85 Blood Pressure 132/88 Height 71 in Height 180 cm Weight 258.28 lb Weight 117.4 kg BMI 36.23 What to do next You Need to Schedule the Following Appointments Follow Up with Gino Ackerman CNP When: In 1 month Comments: Weight management Review labs 04-13-24 at 7 am [facility] Where: [address] [place] [phone] Medications What How Much When Why Instructions New oxybutynin (Ditropan XL 10 mg Tab-ER) 1 Tablets By Mouth Every day Benign prostatic hyperplasia (BPH) with urinary urgency Frequent urination Overactive bladder Refills: 2 Pickup at [facility] 1448 Unchanged chlorhexidine topical (Hibiclens 4% Soap) 1 Application Topical Once Superficial bacterial skin infection Pickup at [facility] 1448 Unchanged phentermine (Adipex-P 37.5 mg Tab) 1 Tablets By Mouth Every day BMI 40.0-44.9, adult Obesity disregard if Rx on file Pickup at [facility] 1448 Unchanged diclofenac (diclofenac potassium 50 mg oral tablet) 1 Tablets By Mouth 3 times a day Strain of mid-back Strain of right latissimus dorsi muscle Contact prescribing physician if questions or concerns Unchanged losartan (losartan 25 mg Tab) 1 Tablets By Mouth Every day HTN (hypertension) Dry cough with NAEL Contact prescribing physician if questions or concerns Unchanged tadalafil (Cialis 5 mg oral tablet) 1 Tablets By Mouth Every day as needed for for erectile dysfunction Benign prostatic hyperplasia (BPH) with urinary urgency Urgency of urination Contact prescribing physician if questions or concerns Pharmacy Information [facility]: [address] [place], [place] [id number] [phone] Allergies penicillin (Unknown) sulfa drugs (Unknown) Problems Ongoing - Any problem that you are currently receiving treatment for. Allergic rhinitis Allergy to poison viviane Benign prostatic hyperplasia (BPH) with urinary urgency Dyslipidemia Encounter for weight management Frequent urination HTN (hypertension) Obesity Osteoarthritis of elbows, bilateral Overactive bladder Physical exam Prediabetes Right elbow pain Snoring Strain of mid-back Strain of right latissimus dorsi muscle Stress Superficial bacterial skin infection Urinary frequency Weight gain Patient Survey You may receive a survey via text or e-mail asking about your office visit. Please share your experience with us by completing your survey. We appreciate your feedback and thank you for choosing us for your care. Normal [facility] CBC W/Diff, Automatedon 07-2 Absolute Lymph 1.89 X10 3/uL Normal 0.83-4.51 [facility] Comment on above: Performed By: #### L 501.9985, L100.0100, L500.4050, L500.4100 #### [facility] [address] [place], [address] Absolute Neut 2.7 X10 3/uL Normal 2.0-7.7 [facility] Comment on above: Performed By: #### L 501.9985, L100.0100, L500.4050, L500.4100 #### [facility] [address] [place], [address] Basophils/100 WBC (Bld) 0.9 % Normal 0-1 [facility] Comment on above: Performed By: #### L 501.9985, L100.0100, L500.4050, L500.4100 #### [facility] [address] [place], [address] Eosinophils/100 WBC (Bld) 5.2 % High 0-5 [facility] Comment on above: Performed By: #### L 501.9985, L100.0100, L500.4050, L500.4100 #### [facility] [address] [place], [address] Erythrocyte distribution width (RBC) [Ratio] 12.0 % Normal 11.6-14.6 [facility] Comment on above: Performed By: #### L 501.9985, L100.0100, L500.4050, L500.4100 #### [facility] [address] [place], [address] Hematocrit (Bld) [Volume fraction] 43.6 % Normal 40-54 [facility] Comment on above: Performed By: #### L 501.9985, L100.0100, L500.4050, L500.4100 #### [facility] [address] [place], [address] Hemoglobin (Bld) [Mass/Vol] 14.8 g/dL Normal 13.0-16.5 [facility] Comment on above: Performed By: #### L 501.9985, L100.0100, L500.4050, L500.4100 #### [facility] [address] [place], [address] IG% 0.200 Normal 0.0-0.9 [facility] Comment on above: Result Comment: IG% - Immature Granulocytes (promyelocytes, myelocytes and metamyelocytes) > 1% indicates that a LEFT SHIFT is Present. Performed By: #### L 501.9985, L100.0100, L500.4050, L500.4100 #### [facility] [address] [place], [address] Lymphocytes/100 WBC (Bld) 34.8 % Normal 19-41 [facility] Comment on above: Performed By: #### L 501.9985, L100.0100, L500.4050, L500.4100 #### [facility] [address] [place], [address] MCH (RBC) [Entitic mass] 31.3 pg Normal 27.0-32.0 [facility] Comment on above: Performed By: #### L 501.9985, L100.0100, L500.4050, L500.4100 #### [facility] [address] [place], [address] MCHC (RBC) [Mass/Vol] 33.9 g/dL Normal 32-36 [facility] Comment on above: Performed By: #### L 501.9985, L100.0100, L500.4050, L500.4100 #### [facility] [address] [place], [address] MCV (RBC) [Entitic vol] 92.2 fL Normal 80-94 [facility] Comment on above: Performed By: #### L 501.9985, L100.0100, L500.4050, L500.4100 #### [facility] [address] [place], [address] Monocytes/100 WBC (Bld) 9.2 % Normal 0-10 [facility] Comment on above: Performed By: #### L 501.9985, L100.0100, L500.4050, L500.4100 #### [facility] [address] [place], [address] Neutrophils/100 WBC (Bld) 49.7 % Normal 47-70 [facility] Comment on above: Performed By: #### L 501.9985, L100.0100, L500.4050, L500.4100 #### [facility] [address] [place], [address] Nucleated RBC (Bld) [#/Vol] 0 10*3/uL Normal 0-5 [facility] Comment on above: Performed By: #### L 501.9985, L100.0100, L500.4050, L500.4100 #### [facility] [address] [place], [address] Platelet mean volume (Bld) [Entitic vol] 10.0 fL Normal 6.2-12.0 [facility] Comment on above: Performed By: #### L 501.9985, L100.0100, L500.4050, L500.4100 #### [facility] [address] [place], [address] Platelets (Bld) [#/Vol] 285 10*3/uL Normal 150-450 [facility] Comment on above: Performed By: #### L 501.9985, L100.0100, L500.4050, L500.4100 #### [facility] [address] [place], [address] RBC (Bld) [#/Vol] 4.73 10*6/uL Normal 4.6-6.2 [facility] Comment on above: Performed By: #### L 501.9985, L100.0100, L500.4050, L500.4100 #### [facility] [address] [place], [address] RDW SD 41.0 fl Normal 35.1-43.9 [facility] Comment on above: Performed By: #### L 501.9985, L100.0100, L500.4050, L500.4100 #### [facility] [address] [place], [address] WBC (Bld) [#/Vol] 5.4 10*3/uL Normal 4.4-11.0 [facility] Comment on above: Performed By: #### L 501.9985, L100.0100, L500.4050, L500.4100 #### [facility] [address] [place], [address] Comprehensive Metabolic Prof [facility] 02-21-2024 Albumin [Mass/Vol] 3.6 g/dL Normal 3.2-5.0 [facility] Comment on above: Performed By: #### L 501.9985, L100.0100, L500.4050, L500.4100 ####[facility] [address] [place], [address] Albumin/Globulin [Mass ratio] 1.1 {ratio} Normal 0.9-2.4 [facility] Comment on above: Performed By: #### L 501.9985, L100.0100, L500.4050, L500.4100 ####[facility] [address] [place], [address] ALK P 58 U/L Normal 45-117 [facility] Comment on above: Performed By: #### L 501.9985, L100.0100, L500.4050, L500.4100 ####[facility] [address] [place], [address] ALT [Catalytic activity/Vol] 34 U/L Normal 16-61 [facility] Comment on above: Performed By: #### L 501.9985, L100.0100, L500.4050, L500.4100 ####[facility] [address] [place], [address] AST [Catalytic activity/Vol] 27 U/L Normal 15-37 [facility] Comment on above: Result Comment: Slig ht Hemolysis, Result may be falsely increased. Performed By: #### L 501.9985, L100.0100, L500.4050, L500.4100 ####[facility] [address] [place], [address] Bilirubin [Mass/Vol] 1.00 mg/dL Normal 0.20-1.00 [facility] Comment on above: Result Comment: For patients on eltrombopag therapy, use of [place] TBIL is not recommended. Performed By: #### L 501.9985, L100.0100, L500.4050, L500.4100 ####[facility] [address] [place], [address] BUN/CRE 8.9 RATIO Low 10-20 [facility] Comment on above: Performed By: #### L 501.9985, L100.0100, L500.4050, L500.4100 ####[facility] [address] [place], [address] CA,Total 8.8 mg/dL Normal 8.5-10.1 [facility] Comment on above: Performed By: #### L 501.9985, L100.0100, L500.4050, L500.4100 ####[facility] [address] [place], [address] Chloride [Moles/Vol] 106 mmol/L Normal 98-107 [facility] Comment on above: Performed By: #### L 501.9985, L100.0100, L500.4050, L500.4100 ####[facility] [address] [place], [address] CO2 [Moles/Vol] 32.0 mmol/L Normal 21.0-32.0 [facility] Comment on above: Performed By: #### L 501.9985, L100.0100, L500.4050, L500.4100 ####[facility] [address] [place], [address] Creatinine [Mass/Vol] 1.23 mg/dL Normal 0.70-1.30 [facility] Comment on above: Result Comment: The validity of the calculated GFR GFRAA in patients over 70 years has not been determined. Clinical correlation is essential. Performed By: #### L 501.9985, L100.0100, L500.4050, L500.4100 ####[facility] [address] [place], [address] EST GFR - AA 82 mL/min Normal >60 [facility] Comment on above: Result Comment: Afri can [place] GFR Calc Performed By: #### L 501.9985, L100.0100, L500.4050, L500.4100 ####[facility] [address] [place], [address] GAP -2 Low 5-15 [facility] Comment on above: Performed By: #### L 501.9985, L100.0100, L500.4050, L500.4100 ####[facility] [address] [place], [address] GFR/1.73 sq M.predicted among non-blacks MDRD (S/P/Bld) [Vol rate/Area] 67 mL/min/{1.73_m2} Normal >60 [facility] Comment on above: Result Comment: Non- GFR Calc Performed By: #### L 501.9985, L100.0100, L500.4050, L500.4100 ####[facility] [address] [place], [address] Globulin (S) [Mass/Vol] 3.3 g/dL Normal 2.2-4.2 [facility] Comment on above: Performed By: #### L 501.9985, L100.0100, L500.4050, L500.4100 ####[facility] [address] [place], [address] Glucose [Mass/Vol] 106 mg/dL Normal 74-106 [facility] Comment on above: Result Comment: Fast ing Glucose result from 100 to 125 mg/dL suggests IMPAIRED HOMEOSTASIS per A.D.A. criteria. Performed By: #### L 501.9985, L100.0100, L500.4050, L500.4100 ####[facility] [address] [place], [address] Potassium [Moles/Vol] 4.8 mmol/L Normal 3.5-5.1 [facility] Comment on above: Result Comment: Slig ht Hemolysis, Result may be falsely increased. Performed By: #### L 501.9985, L100.0100, L500.4050, L500.4100 ####[facility] [address] [place], [address] Sodium [Moles/Vol] 136 mmol/L Normal 136-145 [facility] Comment on above: Performed By: #### L 501.9985, L100.0100, L500.4050, L500.4100 ####[facility] [address] [place], [address] T PROT 6.9 g/dL Normal 6.4-8.2 [facility] Comment on above: Performed By: #### L 501.9985, L100.0100, L500.4050, L500.4100 ####[facility] [address] [place], [address] Urea nitrogen [Mass/Vol] 11 mg/dL Normal 7-18 [facility] Comment on above: Performed By: #### L 501.9985, L100.0100, L500.4050, L500.4100 ####[facility] [address] [place], [address] Hemoglobin A1con 02-21-2024 HbA1c (Bld) [Mass fraction] 5.4 % Normal 3.8-5.6 [facility] Comment on above: Result Comment: Norm al < 5.7 % Prediabetic 5.7 - 6.4 % Diabetic >or= 6.5 % Please note range changes. Performed By: #### L 501.9985, L100.0100, L500.4050, L500.4100 ####[facility] [address] [place], [address] Lipid Profileon 02-21-2024 Cholesterol [Mass/Vol] 209 mg/dL High 200 [facility] Comment on above: Result Comment: <200 mg/dL Desirable 200-240 mg/dL Borderline >240 mg/dL High Risk Performed By: #### L 501.9985, L100.0100, L500.4050, L500.4100 ####[facility] [address] [place], [address] Cholesterol in HDL [Mass/Vol] 44 mg/dL Normal [facility] Comment on above: Result Comment: The drugs N-Acetylcysteine and Metamizole may falsely depress this assay. Reference Range HDL <40 mg/dL Low HDL Cholesterol HDL >or= 60 mg/dL High HDL Cholesterol Performed By: #### L 501.9985, L100.0100, L500.4050, L500.4100 ####[facility] [address] [place], [address] Cholesterol in LDL [Mass/Vol] 134 mg/dL High 0-130 [facility] Comment on above: Performed By: #### L 501.9985, L100.0100, L500.4050, L500.4100 ####[facility] [address] [place], [address] Cholesterol in VLDL [Mass/Vol] 31 mg/dL Normal 5-40 [facility] Comment on above: Performed By: #### L 501.9985, L100.0100, L500.4050, L500.4100 ####[facility] [address] [place], [address] Triglyceride [Mass/Vol] 153 mg/dL Normal [facility] Comment on above: Result Comment: The drugs N-Acetylcysteine and Metamizole may falsely depress this assay. Serum Triglycerides Reference Interval Normal <150 mg/dL Borderline high 150 - 199 mg/dL High 200 - 499 mg/dL Very High > or = 500 mg/dL Performed By: #### L 501.9985, L100.0100, L500.4050, L500.4100 ####[facility] [address] [place], [address] Family Medicine Office/Clini c Noteon 02-17-2024 Family Medicine Office/Clinic Note Family Medicine Office/Clinic Note Chief Complaint Weight Mgmt HPI Staff Patient is here for 1 month Weight Management Concerns: Refills:Adipex Adipex #:4 Started at 131.2 kg-288.64 lbs 1st month on medication: 127.1 kg-280.2 lbs 2nd month on medication: 123.5 kg-271.7 lbs Weight after 3rd refill:124.1 kg-273.4 lbs Weight after 4th refill:120.1 kg-264 lbs Sleeping well:Yes, 6-8 hours Chest pain:No Tremors:No Headaches:No Heart fluttering:No Blurred Vision:No Eating habits:Eating smaller, more frequent healthy meals Exercise:_ Blood pressure:Reviewed, _ Health Maintenance: Colonoscopy:Due PSA:10/11/2023 Last Labs:10/11/2023 History of Present Illness Timmy Hinds is a 43-year-old male who is here today for weight management follow-up and is down about 9 additional pounds since last month. He is taking Adipex with no reported side effects. Blood pressure is well controlled. He notes that she experienced weakness last week, attributing it to frequent camping over the weekends. He has been actively working on improving his muscles. Despite not having completed his blood work, he expresses satisfaction with his progress. He reports a weight loss of approximately 9 to 10 pounds this month. He reports experiencing discomfort on one side of his body, which he suspects may be due to a muscle strain. The pain intensifies with certain positions, depending on his activity level. However, he is able to stand up, bend over, and touch his toes without pain. Twisting movements do not cause pain. He has difficulty getting out of bed when lying down due to the pain. He denies any dysuria or hematuria. The onset of this pain was on 02/14/2024. He endorses that he had severe poison viviane reaction and during his last visit he was given Kenalog injection. He states that symptoms resolved with the injection, and he did not have any issues with even trimming the weed and being around poison viviane lately. His blood pressure is well-controlled. He notes that he takes tamsulosin and Cialis 5 mg currently for his urological issues. He agrees to follow up with urology annually. Review of Systems PHQ Score Initial Depression Screen Score: 0 SCORE All negative except as noted in the HPI. Physical Exam Vitals & Measurements HR: 80(Peripheral) RR: 16 BP: 128/84 SpO2: 95% HT: 71 in HT: 180 cm WT: 120.1 kg WT: 264.22 lb BMI: 37.07 Patient is alert and oriented to person place and time. Appears to be well-nourished. Normal affect. No enlarged thyroid detected. Heart sounds are normal without murmur, gallop, or rub. Heart rate and rhythm normal. Lung sounds clear to auscultation. No chest wall pain noted. Normal respiratory effort without use of accessory muscles. Bowel sounds are normal to auscultation in all 4 quadrants. No abdominal tenderness noted. No masses, guarding or rebound. Tenderness is present with palpation to the right lower back. The latissimus dorsi muscle is tender to palpation. Assessment/Plan 1. Strain of mid-back, (S29.012A: Strain of muscle and tendon of back wall of thorax, initial encounter)Strain of right latissimus dorsi muscle Patient reports tenderness with lateral left lateral movements. Palpation reveals significant tenderness. Strain of mid back is suspected. Encouraged that he takes Voltaren 50 mg 3 times daily with food and stop taking naproxen or Aleve for now so he can take this more consistently throughout the day, should help improve the strain over the course of the next couple of weeks. He can alternate ice or heat. Ordered: diclofenac, 50 mg = 1 tab(s), Oral, TID, # 90 tab(s), Refills(s) 0, Pharmacy: [facility], 180, cm, 02/16/24 16:28:00 EDT, Height/Length Dosing, 120.1, kg, 02/16/24 16:28:00 EDT, Weight Dosing 3. HTN (hypertension) (I10: Essential (primary) hypertension) Blood pressure has been well controlled with losartan 25 mg with no reported side effects. Continue a low salt diet. 4. Encounter for weight management (Z76.89: Persons encountering health services in other specified circumstances) Patient has lost about over 9 pounds on Adipex in the past month. No significant side effects reported. Advised to continue the same. This patient has had a longstanding history of diet modification and routine physical activity without significant loss of body weight. This patient has a BMI greater than or equal to 30 or of 27 with at least 2 Co-morbidities identified by the [place] Administrative code Chapter 4731-11. This patient has no known history of substance abuse. The patient is not per the patient report and/ or urine is negative in childbearing age women with functional reproductive organs. The patient is instructed to continue caloric intake reduction and physical activity for at least 30 minutes/day 5 days a week while taking the medication. Healthy nutrition education given and discussed. The patient is aware that the medication is prescr (more content not included)... [facility] Comment on above: Result Comment: Elec tronically Signed By: Gino Ackerman CNP\.br\Date and Time Signed: 02/17/24 10:30 EDT\.br\Electronically Co-Signed By: Deborah Max\.br\Date and Time Co-Signed: 02/17/24 09:10 EDT Ambulatory Visit Summaryon 0 02-16-2024 Ambulatory Visit Summary Ambulatory Visit Summary TIMMY HINDS :1980 Visit Date:02/16/2024 Ambulatory Visit Instructions Your Diagnosis Strain of mid-back, Strain of right latissimus dorsi muscle HTN (hypertension) Encounter for weight management Non-smoker BMI 37.0-37.9, adult Obesity Allergy to poison viviane Allergic rhinitis Benign prostatic hyperplasia (BPH) with urinary urgency Your Care Team Attending Physician - Gino Ackerman CNP Primary Care Physician - Gino Ackerman CNP This Is Your Medications List diclofenac (diclofenac potassium 50 mg oral tablet) phentermine (Adipex-P 37.5 mg Tab) Contact prescribing physician if questions or concerns chlorhexidine topical (Hibiclens 4% Soap) losartan (losartan 25 mg Tab) tadalafil (Cialis 5 mg oral tablet) tamsulosin (tamsulosin 0.4 mg Cap) Procedures Performed Appendectomy, Hernia repair, Tonsillectomy. Discharge Vitals Heart Rate (Peripheral) 80 Respiratory Rate 16 Blood Pressure 128/84 Height 180 cm Height 71 in Weight 120.1 kg Weight 264.22 lb BMI 37.07 What to do next Scheduled Follow-Up Appointments Friday 4:00 PM EDT With: Gino Ackerman CNP Where: [facility] 01-20-2024 Consent [id number]# 1.00TIFF [facility] Consultation Noteon 01-20-20 Consultation Note [id number] #1.00TIFF Alexandra Con[facility] Family Medicine Office/Clini c Noteon 01-20-2024 Family Medicine Office/Clinic Note Chief Complaint Weight Mgmt HPI Staff Patient is here for 1 month Weight Management Concerns: Refills:Adipex Adipex #:3 Started at 131.2 kg-288.64 lbs 1st month on medication: 127.1 kg-280.2 lbs 2nd month on medication: 123.5 kg-271.7 lbs Weight after 3rd refill:124.1 kg-273.4 lbs Sleeping well:Yes, 6-8 hours Chest pain:No Tremors:No Headaches:No Heart fluttering:No Blurred Vision:No Eating habits:Eating smaller, more frequent healthy meals Exercise:_ Blood pressure:Reviewed, _ Health Maintenance: Colonoscopy:Due PSA:10/11/2023 Last Labs:10/11/2023 History of Present Illness Timmy Hinds is a 43-year-old male who is here today for a 1-month follow-up for weight management. He has experienced significant weight loss while on Adipex therapy. Post-surgery, there was a temporary increase in body weight, but he was on a recent vacation. Report reviewed and consistent with patient history. He has completed 3 months of the Adipex. During his last clinic visit on approximately 12/16/2023, we discussed his consultation with urology. Last time, he did have a superficial staphylococcal infection. He visited his physician for his urinary issues, during which his prescribed medications were confirmed to be appropriate. His physician authorized an additional supply of 5 mg refills for the Cialis. He has been engaging in more physical activity than usual. He has been utilizing a binding belt for support. He expressed relief upon learning that his blood pressure readings were within normal limits, despite consuming 2 double cheeseburgers going to the clinic without prior meals. He consumed a small portion of cottage cheese for lunch. His history indicates prior exposure to poison viviane during childhood, necessitating hospitalization due to respiratory complications. He presented with blister formation extending up his arm. Typically, he manages to rupture these blisters through scratching. [place] residence [place] and poison viviane. He has allergic reactions to poison viviane despite consistently wears long-sleeved clothing, gloves, and a face mask during outdoor activities. He reported a tick found on his towel in the basement bathroom. He also reported the presence of a tick on his posterior neck on 01/17/2024 when he visited a store. No attachment reported. He will be on vacation on the third week of 01/2024. He is allergic to POISON VIVIANE. Review of Systems PHQ Score Initial Depression Screen Score: 0 SCORE All negative except as noted in the HPI. Physical Exam Vitals & Measurements HR: 82(Peripheral) BP: 130/78 SpO2: 96% HT: 71 in HT: 180 cm WT: 124.1 kg WT: 273.02 lb BMI: 38.3 Patient is alert and oriented to person place and time. Appears to be well-nourished. Normal affect. Heart sounds are normal without murmur, gallop or rub. Heart rate and rhythm normal. Lung sounds clear to auscultation. No chest wall pain noted. Normal respiratory effort without use of accessory muscles. Assessment/Plan 1. HTN (hypertension) (I10: Essential (primary) hypertension) Patient with history of elevated blood pressures, taking losartan 25 mg with no reported side effects. Continue low salt diet. The importance of the following were all reviewed with the patient: -Take medications as prescribed. - Recommended following the TLC Lipid Diet which is a low fat/low cholesterol diet for high cholesterol. - More information about this eating plan can be found here: http://tlcdiet.org - To improve your health we recommend increasing your level of moderate exercise to at least 2.5 hours per week. For more information, please visit the CDC Exercise and Fitness Recommendations at www.cdc.gov/physical activity/basics/inde x.htm Ordered: triamcinolone, 80 mg = 2 mL, Injection, IntraMuscular, Once, Stop date 01/19/24 19:06:00 EDT, Routine, Start date 01/19/24 19:06:00 EDT, 01/19/24 19:06:00 EDT CBC w/ Auto Diff Comprehensive Metabolic Panel 2. Encounter for weight management (Z76.89: Persons encountering health services in other specified circumstances) Patient's weight has been about the same over the past month, but had been doing well on the medication before vacation and he also be building muscles as he was very active on his vacation as well. Ordered: triamcinolone, 80 mg = 2 mL, Injection, IntraMuscular, Once, Stop date 01/19/24 19:06:00 EDT, Routine, Start date 01/19/24 19:06:00 EDT, 01/19/24 19:06:00 EDT 3. Non-smoker (Z78.9: Other specified health status) Stable. Continue to refrain from smoking. Ordered: triamcinolone, 80 mg = 2 mL, Injection, IntraMuscular, Once, Stop date 01/19/24 19:06:00 EDT, Routine, Start date 01/19/24 19:06:00 EDT, 01/19/24 19:06:00 EDT 4. BMI 38.0-38.9,adult (Z68.38: Body mass index [BMI] 38.0-38.9, adult) The standard range for ages 18 and older is >=18.5 and < 25 kg/m2. Your BMI today was above this range, this falls in the overweight to obese category and there are med (more content not included)... Normal [facility] Comment on above: Result Comment: Elec tronically Signed By: Gino Ackerman CNP\.br\Date and Time Signed: 01/20/24 07:02 EDT\.br\Electronically Co-Signed By: El Padilla\.br\Date and Time Co-Signed: 01/19/24 22:04 EDT Patient Educationon 01-19-20 Patient Education Cardiovascular Hypertension, Adult High blood pressure (hypertension) is [...] pressure should be below 120/80. The first (top) number is called the systolic pressure. It is a measure of the pressure in your arteries as your heart beats. The second (bottom) number is called the diastolic pressure. It [...] risk factors are under your control, including: ? Smoking. ? Not getting enough exercise or physical activity. ? Being overweight. ? Having too much fat, sugar, calories, or salt (sodium) in your diet. ? Drinking too much alcohol. Other risk factors include: ? Having a personal history of heart disease, diabetes, high cholesterol, or kidney disease. ? Stress. ? Having a family history of high blood pressure and high cholesterol. ? Having obstructive sleep apnea. ? Age. The risk increases with age. What are the signs or symptoms? High blood pressure may not cause symptoms. Very high blood pressure (hypertensive crisis) may cause: ? Headache. ? Fast or irregular heartbeats (palpitations). ? Shortness of breath. ? Nosebleed. ? Nausea and vomiting. ? Vision changes. ? Severe chest pain, dizziness, and seizures. How [...] risk factors, you may be asked to: ? Return on a different day to have your blood pressure checked again. ? Monitor your blood pressure at home for [...] your blood pressure under control and if: ? Your systolic blood pressure is above 130. ? Your diastolic blood pressure is above 80. Your personal target blood pressure may vary depending on your medical conditions, your age, and other factors. Follow these instructions at home: Eating and drinking ? Eat a diet that is high in fiber and potassium, and low in sodium, added sugar, and fat. An example of this eating plan is called the DASH diet. DASH stands for Dietary Approaches to Stop Hypertension. To eat this way: ? Eat plenty of fresh fruits and vegetables. Try to fill one half of your plate at each meal with fruits and vegetables. ? Eat whole grains, such as whole-wheat pasta, brown rice, or whole-grain bread. Fill about one fourth of your plate with whole grains. ? Eat or drink low-fat dairy products, such as skim milk or low-fat yogurt. ? Avoid fatty cuts of meat, processed or cured meats, and poultry with skin. Fill about one fourth of your plate with lean proteins, such as fish, chicken without skin, beans, eggs, or tofu. ? Avoid pre-made and processed foods. These tend to be higher in sodium, added sugar, and fat. ? Reduce your daily sodium intake. Many people with hypertension should eat less than 1,500 mg of sodium a day. ? Do not drink alcohol if: ? Your health care provider tells you not to drink. ? You are , may be , or are planning to become . ? If you drink alcohol: ? Limit how much you have to: ? 0?1 drink a day for women. ? 0?2 drinks a day for men. ? Know how much alcohol is in your drink. In the [place] one drink equals one 12 oz bottle of beer (355 mL), one 5 oz glass of wine (148 mL), or one 1? oz glass (more content not included)... Normal [facility] Family Medicine Office/Clini c Noteon 12-16-2023 Family Medicine Office/Clinic Note Chief Complaint Weight Management HPI Staff Patient is here for 1 month Weight Management Concerns:Was put on Flomax, has only taken 2 dosages-causing dizziness Refills:Adipex Adipex #:2 Started at 131.2 kg288.64 lbs 1st month on medication: 127.1 kg-280.2 lbs 2nd month on medication: 123.5 kg-271.7 lbs Sleeping well:Yes, 6-8 hours Chest pain:No Tremors:No Headaches:No Heart fluttering:No Blurred Vision:No Eating habits:Eating smaller, more frequent healthy meals Exercise:_ Blood pressure:Reviewed, _ Health Maintenance: Colonoscopy:Due PSA:10/11/2023 Last Labs:10/11/2023 History of Present Illness Timmy Hinds is a 43-year-old male who is here today for 1-month weight management follow-up, second month of medication down to 271 pounds. He has seen urology and started on Flomax, but only took 2 doses because of dizziness side effects. The patient has made dietary modifications. His soda intake has remained consistent, although he has recently increased his consumption of sugary beverages. He drank 4 cans of soda on 12/14/2023; however, he also drank 5 to 7 bottles of 16.9 ounces of water. His normal intake of soda is 1 can followed by drinking 5 bottles of 16.9 ounces of water. His typical breakfast consists of 6 Slim Ildefonso snacks, a banana, a handful of chips and cheese, and pepperoni. He recently consulted with his urologist and underwent prostate exam. His prostate was slightly enlarged. He was prescribed Flomax, which he has been taking for the past 2 days; however, he did not take it on the night of 12/14/2023 due to dizziness he experienced upon waking up that day. He has a follow-up appointment with his urologist scheduled for 6 weeks. He has expressed interest in trying Cialis, as he had a family member who has tried taking it and had less severe side effects. He has had alcohol poisoning on one occasion, and it was less severe than the dizziness he experienced with Flomax. He queries about the side effects and indications of Cialis. He reports recurrent infections that cause bleeding, a condition that has persisted for an extended period, particularly during the summer months due to increased perspiration. He has a history of similar infections on his legs and arms, although not as severe as in the past. He reports that these infections cause him pain, which he attempts to alleviate by squeezing and popping. Review of Systems PHQ Score Initial Depression Screen Score: 0 SCORE All negative except as noted in the HPI. Physical Exam Vitals & Measurements HR: 80(Peripheral) RR: 16 BP: 130/84 SpO2: 96% HT: 71 in HT: 180 cm WT: 123.5 kg WT: 271.7 lb BMI: 38.12 Patient is alert and oriented to person place and time. Appears to be well-nourished. Normal affect. Heart sounds are normal without murmur, gallop or rub. Heart rate and rhythm normal. Lung sounds clear to auscultation. No chest wall pain noted. Normal respiratory effort without use of accessory muscles. Skin showing multiple superficial areas of folliculitis to the abdomen. No associated erythema or warmth. No induration or fluid fluctuation. No drainage. No vesicles seen. Assessment/Plan 1. HTN (hypertension) (I10: Essential (primary) hypertension) His blood pressure has been well controlled including today. Well managed with losartan 25 mg. No side effects reported. 2. Benign prostatic hyperplasia (BPH) with urinary urgency (N40.1: Benign prostatic hyperplasia with lower urinary tract symptoms) Patient has established with urology, associated with [facility]. He was started on Flomax but had near syncopal events. Dizziness and lightheadedness were so bad. He would like to try Cialis if possible. He had a family member who took this and did well with it. We'll go ahead and start Cialis 5 mg daily for BPH with urinary symptoms. Take in the evening time, monitor for side effects, and stop taking if any significant reaction or side effects occur. 3. Encounter for weight management (Z76.89: Persons encountering health services in other specified circumstances) Patient here for weight management visit. He has lost additional weight since last visit, now at 271 pounds, was at 280 pounds and then before that, 288.6 pounds. OARRS report reviewed, consistent with patient history, medication contract and UDS is up to date. This patient has had a longstanding history of diet modification and routine physical activity without significant loss of body weight. This patient has a BMI greater than or equal to 30 or of 27 with at least 2 Co-morbidities identified by the [place] Administrative code Chapter 4731-11. This patient has no known history of substance abuse. The patient is not per the patient report and/ or urine is negative in childbearing age women with functional reproductive organs. The patient is instructed to continue caloric intake reduction and physical activity for at least 30 minutes/day 5 days a week while taking the medicat (more content not included)... Normal [facility] Comment on above: Result Comment: Elec tronically Signed By: Gino Ackerman CNP\.br\Date and Time Signed: 12/16/23 10:47 EDT Ambulatory Visit Summaryon 0 12-15-2023 Ambulatory Visit Summary TIMMY HINDS :1980 Visit Date:12/15/2023 Ambulatory Visit Instructions Your Diagnosis HTN (hypertension) Benign prostatic hyperplasia (BPH) with urinary urgency Encounter for weight management BMI 38.0-38.9,adult Non-smoker Obesity Superficial bacterial skin infection Your Care Team Attending Physician - Gnio Ackerman CNP Primary Care Physician - Gino Ackerman CNP This Is Your Medications List chlorhexidine topical (Hibiclens 4% Soap) losartan (losartan 25 mg Tab) phentermine (Adipex-P 37.5 mg Tab) tadalafil (Cialis 5 mg oral tablet) tamsulosin (tamsulosin 0.4 mg Cap) Procedures Performed Appendectomy, Hernia repair, Tonsillectomy. Discharge Vitals Heart Rate (Peripheral) 80 Respiratory Rate 16 Blood Pressure 130/84 Height 180 cm Height 71 in Weight 123.5 kg Weight 271.7 lb BMI 38.12 What to do next You Need to Schedule the Following Appointments Follow Up with Gino Ackerman CNP When: In 1 month Comments: weight management 01-19-[address] [place] [address] Where: [address] [place] [phone] Medications What How Much When Why Instructions New chlorhexidine topical (Hibiclens 4% Soap) 1 Application Topical Once Superficial bacterial skin infection Refills: 1 Pickup at [facility] New tadalafil (Cialis 5 mg oral tablet) 1 Tablets By Mouth Every day as needed for for erectile dysfunction Benign prostatic hyperplasia (BPH) with urinary urgency Urgency of urination Refills: 1 Pickup at [facility] 1445 Unchanged losartan (losartan 25 mg Tab) 1 Tablets By Mouth Every day HTN (hypertension) Dry cough with NAEL Unchanged phentermine (Adipex-P 37.5 mg Tab) 1 Tablets By Mouth Every day BMI 40.0-44.9, adult Obesity Pickup at [facility] Unchanged tamsulosin (tamsulosin 0.4 mg Cap) 1 Capsules Pharmacy Information [facility]48: [address] [place], [place] [phone] Allergies penicillin (Unknown) sulfa drugs (Unknown) Problems Ongoing - Any problem that you are currently receiving treatment for. Allergic rhinitis Benign prostatic hyperplasia (BPH) with urinary urgency Dyslipidemia Elevated blood pressure reading Frequent urination HTN (hypertension) Obesity Osteoarthritis of elbows, bilateral Physical exam Prediabetes Right elbow pain Snoring Stress Superficial bacterial skin infection Urinary frequency Weight gain Patient Survey You may receive a survey via text or e-mail asking about your office visit. Please share your experience with us by completing your survey. We appreciate your feedback and thank you for choosing us for your care. [facility] Consultation Noteon 12-11-19 Consultation Note [id number] #1.00TIFF [facility] Family Medicine Office/Clini c Noteon 11-11-2023 Family Medicine Office/Clinic Note Chief Complaint Weight Management HPI Staff Patient is here for 1 month Weight Management/Lab review Concerns:No Refills:Adipex Adipex #:1 Started at 131.2 kg-288.64 lbs 1st month on medication: 127.1 kg-280.2 lbs Sleeping well:Yes, 6-8 hours Chest pain:No Tremors:No Headaches:No Heart fluttering:No Blurred Vision:No Eating habits:Watching carbohydrates, and sweets Exercise:_ Blood pressure:Reviewed, _ Health Maintenance: Colonoscopy:Due PSA:10/11/2023 Last Labs:10/11/2023 History of Present Illness Timmy Hinds is a 43-year-old male who is here for 1-month weight management follow-up and lab review. He has lost over 8 pounds in the past month since starting Adipex. Report is reviewed and consistent with patient history. Recent blood work that was done shows CBC with differential is overall unremarkable. Fasting glucose elevated at 116 mg/dL. Lipid panel on total cholesterol is at 230 mg/dL, LDL is at 155 mg/dL, HDL is at 41 mg/dL, triglycerides at 171 mg/dL. PSA is normal at 0.83 ng/mL. Hemoglobin A1c elevated at 5.8%. The patient has undergone weight loss but has not experienced any negative side effects from his medication. His blood pressure measurements were within the normal range during this consultation. He has yet to see his test results and is unaware of his prediabetic status. 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 Review of Systems PHQ Score Initial Depression Screen Score: 0 SCORE All negative except as noted in the HPI. Physical Exam Vitals & Measurements HR: 78(Peripheral) BP: 132/86 SpO2: 96% HT: 71 in HT: 180 cm WT: 127.1 kg WT: 279.62 lb BMI: 39.23 Patient is alert and oriented to person place and time. Appears to be well-nourished. Normal affect. Heart sounds are normal without murmur, gallop or rub. Heart rate and rhythm normal. Lung sounds clear to auscultation. No chest wall pain noted. Normal respiratory effort without use of accessory muscles. No edema noted to bilateral lower extremities. Posterior tibial pulses palpable. Assessment/Plan 1. HTN (hypertension) (I10: Essential (primary) hypertension) The patient's blood pressure is well controlled today at 132/86 mmHg. He is taking losartan 25 mg with no reported side effects. Continue a low salt diet. The importance of the following were all reviewed with the patient: -Take medications as prescribed. - Recommended following the TLC Lipid Diet which is a low fat/low cholesterol diet for high cholesterol. - More information about this eating plan can be found here: http://tlcdiet.org - To improve your health we recommend increasing your level of moderate exercise to at least 2.5 hours per week. For more information, please visit the CDC Exercise and Fitness Recommendations at www.cdc.gov/physical activity/basics/inde x.htm 2. Dyslipidemia (E78.5: Hyperlipidemia, unspecified) Her recent blood test results reviewed with the patient including cholesterol levels and elevated glucose levels. I recommended dietary adjustments. He has had some weight loss with the 1st month of Adipex and recommends continuing for an additional month. No side effects reported there. We plan to repeat lipid panel sometime in the summer. 3. Prediabetes (R73.03: Prediabetes) We discussed diagnosis of prediabetes, hemoglobin A1c at 5.8% and fasting glucose at 116 mg/dL. He has been cutting back significantly on portion sizes. He has a difficult time obtaining enough physical examination secondary to working long hours as a truck loader overhead crane, however, try to get some activity when he can. He should at least increase a few steps per day with walking. This can help reduce insulin resistance, but with weight loss, it is definitely very helpful. Unable to obtain stress level reduction due to increased stress at work but he is encouraged to find some time every day for himself. We plan to check fasting glucose and A1c again in the summer as well. Again, recommend routine sleep cycle, decrease stress levels, dietary adjustment and increasing physical activity. 4. BMI 39.0-39.9,adult (Z68.39: Body mass index [BMI] 39.0-39.9, adult) The standard range for ages 18 and older is >=18.5 and < 25 kg/m2. Your BMI today was above this range, this falls in the overweight to obese category and there are medical benefits to weight loss. We can offer counselling, referral, and/or medical support in addressing this problem. Your BMI and weight management will be followed at subsequent visits. 5. Non-smoker (Z78.9: Other specified health status) The patient is non-smoker, stable. 6. Obesity (E66.9: Obesity, unspecified) Excess weight may lead to disease. Small changes such as drinking 3-4 liters of water or eating nutrient dense foods like lean meats, leafy green vegetables, berries, apples, avocados, lentils, sweet potatoes, and fiber reduce caloric intake. Consuming a variety of healthy foods most days of the week is more sustainable rl (more content not included)... [facility] Comment on above: Result Comment: Elec tronically Signed By: Gino Ackerman CNP\.br\Date and Time Signed: 11/11/23 08:23 EDT\.br\Electronically Co-Signed By: Candice Claire\.br\Date and Time Co-Signed: 11/10/23 19:23 EDT Lab Reportson 11-11-2023 Lab Reports [id number] #1.00TIFF [facility] Physician Referralon 024 Physician Referral [id number] 4#1.00TIFF Normal [facility] Absolute lymphocyte countOrd ered By: Gino Ackerman on 10-11-2023 Lymphocytes Auto (Unsp spec) [#/Vol] 2.12 10*3/uL 0.83-4.51 [facility] Automated lymphocyte count a s percentage of total leukocytesOrdered By: Gino Ackerman on 10-11-2023 Lymphocytes/100 WBC Auto (Unsp spec) 40.6 % 19-41 [facility] Basophil percentageOrdered B y: Gino Ackerman on 10-11-2023 Basophil percentage 0.83 ng/mL 0.0-4.0 [facility] Comment on above: This test was perfor med using the TPSA assay method for the[employer] chemistry system. Values obtained with differentassay methods cannot be used interchangably.When changing PSA assays in the course of monitoring apatient, additional sequential testing should be carriedout to confirm baseline values. Basophils/100 WBC (Bld) 0.8 % 0-1 [facility] Bilirubin [Mass/Vol] 0.50 mg/dL 0.20-1.00 [facility] Comment on above: For patients on eltr ombopag therapy, use of [place] TBIL is not recommended. Chloride [Moles/Vol] 107 mmol/L 98-107 [facility] Cholesterol [Mass/Vol] 230 mg/dL <200 [facility] Comment on above: <200 mg/dL Desirable 200-240 mg/dL Borderline >240 mg/dL High Risk Eosinophils/100 WBC (Bld) 4.6 % 0-5 [facility] Glucose [Mass/Vol] 116 mg/dL 74-106 [facility] Comment on above: Fasting Glucose resu lt from 100 to 125 mg/dL suggests IMPAIRED HOMEOSTASIS per A.D.A. criteria. Hemoglobin (Bld) [Mass/Vol] 15.5 g/dL 13.0-16.5 [facility] Monocytes/100 WBC (Bld) 10.2 % 0-10 [facility] Neutrophils (Bld) [#/Vol] 2.3 10*3/uL 2.0-7.7 [facility] Neutrophils/100 WBC (Bld) 43.4 % 47-70 [facility] Potassium [Moles/Vol] 4.6 mmol/L 3.5-5.1 [facility] Protein [Mass/Vol] 7.0 g/dL 6.4-8.2 [facility] Sodium [Moles/Vol] 139 mmol/L 136-145 [facility] Triglyceride [Mass/Vol] 171 mg/dL <199 [facility] Comment on above: The drugs N-Acetylcy steine and Metamizole may falsely depress this assay.Serum Triglycerides Reference Interval Normal <150 mg/dL Borderline high 150 - 199 mg/dL High 200 - 499 mg/dL Very High > or = 500 mg/dL WBC (Bld) [#/Vol] 5.2 10*3/uL 4.4-11.0 [facility] CBC W/Diff, Automatedon 09-25-2023 Absolute Lymph 2.12 X10 3/uL Normal 0.83-4.51 [facility] Comment on above: Performed By: #### L [id number], L500.4100, L500.4050, L501.9940, L100.0100 #### [facility] [address] [place], [address] Absolute Neut 2.3 X10 3/uL Normal 2.0-7.7 [facility] Comment on above: Performed By: #### L [id number], L500.4100, L500.4050, L501.9940, L100.0100 #### [facility] [address] [place], [address] Basophils/100 WBC (Bld) 0.8 % Normal 0-1 [facility] Comment on above: Performed By: #### L [id number], L500.4100, L500.4050, L501.9940, L100.0100 #### [facility] [address] [place], [address] Eosinophils/100 WBC (Bld) 4.6 % Normal 0-5 [facility] Comment on above: Performed By: #### L [id number], L500.4100, L500.4050, L501.9940, L100.0100 #### [facility] [address] [place], [address] Erythrocyte distribution width (RBC) [Ratio] 12.2 % Normal 11.6-14.6 [facility] Comment on above: Performed By: #### L [id number], L500.4100, L500.4050, L501.9940, L100.0100 #### [facility] [address] [place], [address] Hematocrit (Bld) [Volume fraction] 45.0 % Normal 40-54 [facility] Comment on above: Performed By: #### L [id number], L500.4100, L500.4050, L501.9940, L100.0100 #### [facility] [address] [place], [address] Hemoglobin (Bld) [Mass/Vol] 15.5 g/dL Normal 13.0-16.5 [facility] Comment on above: Performed By: #### L [id number], L500.4100, L500.4050, L501.9940, L100.0100 #### [facility] [address] [place], [address] IG% 0.400 Normal 0.0-0.9 [facility] Comment on above: Result Comment: IG% - Immature Granulocytes (promyelocytes, myelocytes and metamyelocytes) > 1% indicates that a LEFT SHIFT is Present. Performed By: #### L 501.9985, L500.4100, L500.4050, L501.9940, L100.0100 #### [facility] [address] [place], [address] Lymphocytes/100 WBC (Bld) 40.6 % Normal 19-41 [facility] Comment on above: Performed By: #### L [id number], L500.4100, L500.4050, L501.9940, L100.0100 #### [facility] [address] [place], [address] MCH (RBC) [Entitic mass] 31.7 pg Normal 27.0-32.0 [facility] Comment on above: Performed By: #### L [id number], L500.4100, L500.4050, L501.9940, L100.0100 #### [facility] [address] [place], [address] MCHC (RBC) [Mass/Vol] 34.4 g/dL Normal 32-36 [facility] Comment on above: Performed By: #### L [id number], L500.4100, L500.4050, L501.9940, L100.0100 #### [facility] [address] [place], [address] MCV (RBC) [Entitic vol] 92.0 fL Normal 80-94 [facility] Comment on above: Performed By: #### L 501.9985, L500.4100, L500.4050, L501.9940, L100.0100 #### [facility] [address] [place], [address] Monocytes/100 WBC (Bld) 10.2 % High 0-10 [facility] Comment on above: Performed By: #### L 501.9985, L500.4100, L500.4050, L501.9940, L100.0100 #### [facility] [address] [place], [address] Neutrophils/100 WBC (Bld) 43.4 % Low 47-70 [facility] Comment on above: Performed By: #### L 501.9985, L500.4100, L500.4050, L501.9940, L100.0100 #### [facility] [address] [place], [address] Nucleated RBC (Bld) [#/Vol] 0 10*3/uL Normal 0-5 [facility] Comment on above: Performed By: #### L 501.9985, L500.4100, L500.4050, L501.9940, L100.0100 #### [facility] [address] [place], [address] Platelet mean volume (Bld) [Entitic vol] 10.4 fL Normal 6.2-12.0 [facility] Comment on above: Performed By: #### L [id number], L500.4100, L500.4050, L501.9940, L100.0100 #### [facility] [address] [place], [address] Platelets (Bld) [#/Vol] 301 10*3/uL Normal 150-450 [facility] Comment on above: Performed By: #### L 501.9985, L500.4100, L500.4050, L501.9940, L100.0100 #### [facility] [address] [place], [address] RBC (Bld) [#/Vol] 4.89 10*6/uL Normal 4.6-6.2 [facility] Comment on above: Performed By: #### L 501.9985, L500.4100, L500.4050, L501.9940, L100.0100 #### [facility] [address] [place], [address] RDW SD 41.3 fl Normal 35.1-43.9 [facility] Comment on above: Performed By: #### L 501.9985, L500.4100, L500.4050, L501.9940, L100.0100 #### [facility] [address] [place], [address] WBC (Bld) [#/Vol] 5.2 10*3/uL Normal 4.4-11.0 [facility] Comment on above: Performed By: #### L 501.9985, L500.4100, L500.4050, L501.9940, L100.0100 #### [facility] [address] [place], [address] Comprehensive Metabolic Prof ilon 10-11-2023 Albumin [Mass/Vol] 3.7 g/dL Normal 3.2-5.0 [facility] Comment on above: Performed By: #### L 501.9985, L500.4100, L500.4050, L501.9940, L100.0100 #### [facility] [address] [place], [address] Albumin/Globulin [Mass ratio] 1.1 {ratio} Normal 0.9-2.4 [facility] Comment on above: Performed By: #### L 501.9985, L500.4100, L500.4050, L501.9940, L100.0100 #### [facility] [address] [place], [address] ALK P 58 U/L Normal 45-117 [facility] Comment on above: Performed By: #### L 501.9985, L500.4100, L500.4050, L501.9940, L100.0100 #### [facility] [address] [place], [address] ALT [Catalytic activity/Vol] 46 U/L Normal 16-61 [facility] Comment on above: Performed By: #### L 501.9985, L500.4100, L500.4050, L501.9940, L100.0100 #### [facility] [address] [place], [address] AST [Catalytic activity/Vol] 22 U/L Normal 15-37 [facility] Comment on above: Performed By: #### L 501.9985, L500.4100, L500.4050, L501.9940, L100.0100 #### [facility] [address] [place], [address] Bilirubin [Mass/Vol] 0.50 mg/dL Normal 0.20-1.00 [facility] Comment on above: Result Comment: For patients on eltrombopag therapy, use of [place] TBIL is not recommended. Performed By: #### L 501.9985, L500.4100, L500.4050, L501.9940, L100.0100 #### [facility] [address] [place], [address] BUN/CRE 10.5 RATIO Normal 10-20 [facility] Comment on above: Performed By: #### L 501.9985, L500.4100, L500.4050, L501.9940, L100.0100 #### [facility] [address] [place], [address] CA,Total 8.2 mg/dL Low 8.5-10.1 [facility] Comment on above: Performed By: #### L 501.9985, L500.4100, L500.4050, L501.9940, L100.0100 #### [facility] [address] [place], [address] Chloride [Moles/Vol] 107 mmol/L Normal 98-107 [facility] Comment on above: Performed By: #### L 501.9985, L500.4100, L500.4050, L501.9940, L100.0100 #### [facility] [address] [place], [address] CO2 [Moles/Vol] 29.0 mmol/L Normal 21.0-32.0 [facility] Comment on above: Performed By: #### L 501.9985, L500.4100, L500.4050, L501.9940, L100.0100 #### [facility] [address] [place], [address] Creatinine [Mass/Vol] 1.14 mg/dL Normal 0.70-1.30 [facility] Comment on above: Result Comment: The validity of the calculated GFR GFRAA in patients over 70 years has not been determined. Clinical correlation is essential. Performed By: #### L 501.9985, L500.4100, L500.4050, L501.9940, L100.0100 #### [facility] [address] [place], [address] EST GFR - AA 89 mL/min Normal >60 [facility] Comment on above: Result Comment: Afri can [place] GFR Calc Performed By: #### L 501.9985, L500.4100, L500.4050, L501.9940, L100.0100 #### [facility] [address] [place], [address] GAP 3 Low 5-15 [facility] Comment on above: Performed By: #### L 501.9985, L500.4100, L500.4050, L501.9940, L100.0100 #### [facility] [address] [place], [address] GFR/1.73 sq M.predicted among non-blacks MDRD (S/P/Bld) [Vol rate/Area] 74 mL/min/{1.73_m2} Normal >60 [facility] Comment on above: Result Comment: Non- GFR Calc Performed By: #### L 501.9985, L500.4100, L500.4050, L501.9940, L100.0100 #### [facility] [address] [place], [address] Globulin (S) [Mass/Vol] 3.3 g/dL Normal 2.2-4.2 [facility] Comment on above: Performed By: #### L 501.9985, L500.4100, L500.4050, L501.9940, L100.0100 #### [facility] [address] [place], [address] Glucose [Mass/Vol] 116 mg/dL High 74-106 [facility] Comment on above: Result Comment: Fast ing Glucose result from 100 to 125 mg/dL suggests IMPAIRED HOMEOSTASIS per A.D.A. criteria. Performed By: #### L 501.9985, L500.4100, L500.4050, L501.9940, L100.0100 #### [facility] [address] [place], [address] Potassium [Moles/Vol] 4.6 mmol/L Normal 3.5-5.1 [facility] Comment on above: Performed By: #### L 501.9985, L500.4100, L500.4050, L501.9940, L100.0100 #### [facility] [address] [place], [address] Sodium [Moles/Vol] 139 mmol/L Normal 136-145 [facility] Comment on above: Performed By: #### L 501.9985, L500.4100, L500.4050, L501.9940, L100.0100 #### [facility] [address] [place], [address] T PROT 7.0 g/dL Normal 6.4-8.2 [facility] Comment on above: Performed By: #### L 501.9985, L500.4100, L500.4050, L501.9940, L100.0100 #### [facility] [address] [place], [address] Urea nitrogen [Mass/Vol] 12 mg/dL Normal 7-18 [facility] Comment on above: Performed By: #### L 501.9985, L500.4100, L500.4050, L501.9940, L100.0100 #### [facility] [address] [place], [place], [id number] Determination of erythrocyte mean corpuscular volume (MCV)Ordered By: Gino Ackerman on 10-11-2023 MCV (RBC) [Entitic vol] 92.0 fL 80-94 [facility] Erythrocyte distribution wid th ratioOrdered By: Gino Riedy on 10-11-2023 Erythrocyte distribution width (RBC) [Ratio] 12.2 % 11.6-14.6 [facility] Erythrocyte distribution wid th standard deviationOrdered By: Ginokofi Ackerman on 10-11-2023 Erythrocyte distribution width (RBC) [Entitic vol] 41.3 fL 35.1-43.9 [facility] Hematocrit Auto (Bld) [Volum e fraction]Ordered By: Gino Ackerman on 10-11-2023 Hematocrit (Bld) [Volume fraction] 45.0 % 40-54 [facility] Hemoglobin A1con 10-11-2023 HbA1c (Bld) [Mass fraction] 5.8 % High 3.8-5.6 [facility] Comment on above: Result Comment: Norm al < 5.7 % Prediabetic 5.7 - 6.4 % Diabetic >or= 6.5 % Please note range changes. Performed By: #### L 501.9985, L500.4100, L500.4050, L501.9940, L100.0100 #### [facility] [address] [place], [place], [address] Immature granulocytes/100 WB C Auto (Bld)Ordered By: Gino Ackerman on 10-11-2023 Immature granulocytes/100 WBC (Bld) 0.400 % 0.0-0.9 [facility] Comment on above: IG% - Immature Granu locytes (promyelocytes, myelocytes and metamyelocytes) > 1% indicates that a LEFT SHIFT is Present. Laboratory - Chemistry and C hemistry - challengeOrdered By: Gino Ackerman on 10-11-2023 Albumin/Globulin [Mass ratio] 1.1 {ratio} 0.9-2.4 [facility] ALP [Catalytic activity/Vol] 58 U/L 45-117 [facility] ALT [Catalytic activity/Vol] 46 U/L 16-61 [facility] Cholesterol in HDL [Mass/Vol] 41 mg/dL >40 [facility] Comment on above: The drugs N-Acetylcy steine and Metamizole may falsely depress this assay. Reference Range HDL <40 mg/dL Low HDL Cholesterol HDL >or= 60 mg/dL High HDL Cholesterol Cholesterol in LDL [Mass/Vol] 155 mg/dL 0-130 [facility] CO2 [Moles/Vol] 29.0 mmol/L 21.0-32.0 [facility] Globulin (S) [Mass/Vol] 3.3 g/dL 2.2-4.2 [facility] Urea nitrogen/Creatinine [Mass ratio] 10.5 mg/mg 10-20 [facility] Laboratory - Hematology and Cell countsOrdered By: Gino Ackerman on 10-11-2023 MCH (RBC) [Entitic mass] 31.7 pg 27.0-32.0 [facility] MCHC (RBC) [Mass/Vol] 34.4 g/dL 32-36 [facility] Nucleated RBC/100 WBC (Bld) [Ratio] 0 % 0-5 [facility] Platelet mean volume (Bld) [Entitic vol] 10.4 fL 6.2-12.0 [facility] Platelets (Bld) [#/Vol] 301 10*3/uL 150-450 [facility] Lipid Profileon 10-11-2023 Cholesterol [Mass/Vol] 230 mg/dL High 200 [facility] Comment on above: Result Comment: <200 mg/dL Desirable 200-240 mg/dL Borderline >240 mg/dL High Risk Performed By: #### L 501.9985, L500.4100, L500.4050, L501.9940, L100.0100 #### [facility] [address] [place], [address] Cholesterol in HDL [Mass/Vol] 41 mg/dL Normal [facility] Comment on above: Result Comment: The drugs N-Acetylcysteine and Metamizole may falsely depress this assay. Reference Range HDL <40 mg/dL Low HDL Cholesterol HDL >or= 60 mg/dL High HDL Cholesterol Performed By: #### L 501.9985, L500.4100, L500.4050, L501.9940, L100.0100 #### [facility] [address] [place], [address] Cholesterol in LDL [Mass/Vol] 155 mg/dL High 0-130 [facility] Comment on above: Performed By: #### L 501.9985, L500.4100, L500.4050, L501.9940, L100.0100 #### [facility] [address] [place], [address] Cholesterol in VLDL [Mass/Vol] 34 mg/dL Normal 5-40 [facility] Comment on above: Performed By: #### L 501.9985, L500.4100, L500.4050, L501.9940, L100.0100 #### [facility] [address] [place], [address] Triglyceride [Mass/Vol] 171 mg/dL Normal [facility] Comment on above: Result Comment: The drugs N-Acetylcysteine and Metamizole may falsely depress this assay. Serum Triglycerides Reference Interval Normal <150 mg/dL Borderline high 150 - 199 mg/dL High 200 - 499 mg/dL Very High > or = 500 mg/dL Performed By: #### L 501.9985, L500.4100, L500.4050, L501.9940, L100.0100 #### [facility] [address] [place], [address] No Panel InformationOrdered By: Gino Ackerman on 10-11-2023 Estimated GFR (MDRD) Amer 89 mL/min >60 [facility] Comment on above: GFR Calc Estimated GFR (MDRD) Non-Af Amer 74 mL/min >60 [facility] Comment on above: Non- GFR Calc VLDL Cholesterol 34 mg/dL 5-40 [facility] PSA,Total- Diagnosticon 09-25 PSA, DIAGNOSTIC 0.83 ng/mL Normal 0.0-4.0 [facility] Comment on above: Result Comment: This test was performed using the TPSA assay method for the [employer] chemistry system. Values obtained with different assay methods cannot be used interchangably. When changing PSA assays in the course of monitoring a patient, additional sequential testing should be carried out to confirm baseline values. Performed By: #### L 501.9985, L500.4100, L500.4050, L501.9940, L100.0100 #### [facility] [address] [place], [address] RBC Auto (Bld) [#/Vol]Ordere d By: Gino Ackerman on 10-11-2023 RBC (Bld) [#/Vol] 4.89 10*6/uL 4.6-6.2 [facility] Serum or plasma calcium amrita urement (mass/volume)Ordered By: Gino Ackerman on 10-11-2023 Calcium [Mass/Vol] 8.2 mg/dL 8.5-10.1 [facility] Serum or plasma creatinine m easurement (mass/volume)Ordered By: Gino Ackerman on 10-11-2023 Creatinine [Mass/Vol] 1.14 mg/dL 0.70-1.30 [facility] Comment on above: The validity of the calculated GFR & GFRAA in patients over 70 years has not been determined. Clinical correlation is essential. Serum or plasma urea nitroge n measurement (mass/volume)Ordered By: Gino Ackerman on 10-11-2023 Urea nitrogen [Mass/Vol] 12 mg/dL 7-18 [facility] Thin prep Papanicolaou smear with manual screeningOrdered By: Gino Ackerman on 10-11-2023 Thin prep Papanicolaou smear with manual screening 3.7 g/dL 3.2-5.0 [facility] Thin prep Papanicolaou smear with manual screening 22 U/L 15-37 [facility] Thin prep Papanicolaou smear with manual screening 3 5-15 [facility] Whole blood hemoglobin A1c/t otal hemoglobin ratio (mass fraction)Ordered By: Gino Ackerman on 10-11-2023 HbA1c (Bld) [Mass fraction] 5.8 % 3.8-5.6 [facility] Comment on above: Normal < 5.7 % Predi abetic 5.7 - 6.4 % Diabetic >or= 6.5 % Please note range changes. Family Medicine Office/Clini c Noteon 10-07-2023 Family Medicine Office/Clinic Note Chief Complaint Follow up HPI Staff Patient is here for 8 month follow up Concerns:No Refills:No HTN BP range:Not Checking Meds:Losartan Compliant, no side effects Diet:No Exercise:No No chest pain, palpitations, sob, headache, peripheral edema, lightheadedness. No hypotensive episodes Health Maintenance: Colonoscopy:Due PSA:01/02/2023 Last Labs:01/02/2023 History of Present Illness Timmy Hinds is a 43-year-old male who is here today for chronic follow-up. He was seen last about 8 months ago. He is on losartan for blood pressure. Last PSA and labs were done last summer. Blood pressure is well controlled. Last hemoglobin A1c was checked in summer of last year and was at 5.7%. Cholesterol showed elevated LDL at 148 mg/dL. The patient has expressed a need for weight reduction. He has previously used Adipex with positive results and is interested in resuming the medication if deemed suitable. His current weight is 289 pounds. Despite his efforts, he finds weight loss challenging. He reports no adverse effects from the medication. He is considering consulting a urologist due to increasing issues with urinary control. He reports occasional incontinence before reaching the bathroom. Despite having a satisfactory urine stream, he often experiences frequent urination. With his job, he does not urinate often but there are instances when he feels the need to urinate more than once a day. The patient also has a family history of prostate problems. The patient's blood glucose levels are elevated. During his physical examination with [employer], he was inquired about potential glycemic issues, but no information was provided. His father was a pre-diabetic and hypertensive. The patient suffers from lateral epicondylitis and has bone spurs in one arm. Review of Systems PHQ Score Initial Depression Screen Score: 0 SCORE All negative except as noted in the HPI. Physical Exam Vitals & Measurements HR: 85(Peripheral) BP: 126/80 SpO2: 93% HT: 71 in HT: 180 cm WT: 131.2 kg WT: 288.64 lb BMI: 40.49 Patient is alert and oriented to person place and time. Appears to be well-nourished. Normal affect. Neck is supple no adenopathy noted. No enlarged thyroid detected. Heart sounds are normal without murmur, gallop or rub. Heart rate and rhythm normal. Lung sounds clear to auscultation. No chest wall pain noted. Normal respiratory effort without use of accessory muscles. No edema noted to bilateral lower extremities. Posterior tibial pulses palpable. Assessment/Plan 1. HTN (hypertension) (I10: Essential (primary) hypertension) The patient with history of hypertension. He has been taking losartan 25 mg with no reported side effects. Blood pressure today is well controlled. He will continue the same. 2. Dyslipidemia (E78.5: Hyperlipidemia, unspecified) The patient does have history of dyslipidemia. I recommend having fasting blood work done in the near future. He plans to have done at [facility] [place] near where he lives. Fasting lab orders given. 3. Prediabetes (R73.03: Prediabetes) The patient with history of prediabetes. He admits that his diet has not been the best lately. He does have a strong family history of diabetes. I will check hemoglobin A1c with next lab. 4. Obesity (E66.9: Obesity, unspecified) The patient has had some weight gain. He admits that he has not been as good with his diet as he should be. We will check blood work. He has done Adipex in the past, but only did it for a month and was not able to come back in for the follow-up. We will start Adipex today. OARRS report is reviewed, consists of the patient history. Follow up in 1 month for weight management and review labs. This patient has had a longstanding history of diet modification and routine physical activity without significant loss of body weight. This patient has a BMI greater than or equal to 30 or of 27 with at least 2 Co-morbidities identified by the [place] Administrative code Chapter 4731-11. This patient has no known history of substance abuse. The patient is not per the patient report and/ or urine is negative in childbearing age women with functional reproductive organs. The patient is instructed to continue caloric intake reduction and physical activity for at least 30 minutes/day 5 days a week while taking the medication. Healthy nutrition education given and discussed. The patient is aware that the medication is prescribed on a [id number] basis and can only be given for up to 3 consecutive months before a 6-month break from weight loss medication is warranted. If the patient loses 5% of body weight within the first 90 days of taking the medication, additional prescriptions can be given on a month to month basis. I have discussed prescribed this medication with my collaborating physician and I am aware of the guidelines for prescribing Adipex. OARRS report is reviewed and consistent with patient history. 5. BMI 40.0-44. (more content not included)... Normal [facility] Comment on above: Result Comment: Elec tronically Signed By: Gino Ackerman CNP\.br\Date and Time Signed: 10/07/23 10:34 EDT\.br\Electronically Co-Signed By: Megan Bartlett\.br\Date and Time Co-Signed: 10/07/23 09:36 EDT Patient Educationon 10-06-19 Patient Education Cardiovascular Hypertension, Adult High blood pressure (hypertension) is [...] pressure should be below 120/80. The first (top) number is called the systolic pressure. It is a measure of the pressure in your arteries as your heart beats. The second (bottom) number is called the diastolic pressure. It [...] risk factors are under your control, including: ? Smoking. ? Not getting enough exercise or physical activity. ? Being overweight. ? Having too much fat, sugar, calories, or salt (sodium) in your diet. ? Drinking too much alcohol. Other risk factors include: ? Having a personal history of heart disease, diabetes, high cholesterol, or kidney disease. ? Stress. ? Having a family history of high blood pressure and high cholesterol. ? Having obstructive sleep apnea. ? Age. The risk increases with age. What are the signs or symptoms? High blood pressure may not cause symptoms. Very high blood pressure (hypertensive crisis) may cause: ? Headache. ? Fast or irregular heartbeats (palpitations). ? Shortness of breath. ? Nosebleed. ? Nausea and vomiting. ? Vision changes. ? Severe chest pain, dizziness, and seizures. How [...] risk factors, you may be asked to: ? Return on a different day to have your blood pressure checked again. ? Monitor your blood pressure at home for [...] your blood pressure under control and if: ? Your systolic blood pressure is above 130. ? Your diastolic blood pressure is above 80. Your personal target blood pressure may vary depending on your medical conditions, your age, and other factors. Follow these instructions at home: Eating and drinking ? Eat a diet that is high in fiber and potassium, and low in sodium, added sugar, and fat. An example of this eating plan is called the DASH diet. DASH stands for Dietary Approaches to Stop Hypertension. To eat this way: ? Eat plenty of fresh fruits and vegetables. Try to fill one half of your plate at each meal with fruits and vegetables. ? Eat whole grains, such as whole-wheat pasta, brown rice, or whole-grain bread. Fill about one fourth of your plate with whole grains. ? Eat or drink low-fat dairy products, such as skim milk or low-fat yogurt. ? Avoid fatty cuts of meat, processed or cured meats, and poultry with skin. Fill about one fourth of your plate with lean proteins, such as fish, chicken without skin, beans, eggs, or tofu. ? Avoid pre-made and processed foods. These tend to be higher in sodium, added sugar, and fat. ? Reduce your daily sodium intake. Many people with hypertension should eat less than 1,500 mg of sodium a day. ? Do not drink alcohol if: ? Your health care provider tells you not to drink. ? You are , may be , or are planning to become . ? If you drink alcohol: ? Limit how much you have to: ? 0?1 drink a day for women. ? 0?2 drinks a day for men. ? Know how much alcohol is in your drink. In the [place] one drink equals one 12 oz bottle of beer (355 mL), one 5 oz glass of wine (148 mL), or one 1? oz glass (more content not included)... Normal [facility] Absolute lymphocyte countOrd ered By: Gino Ackerman on 01-02-2023 Lymphocytes Auto (Unsp spec) [#/Vol] 1.96 10*3/uL 0.83-4.51 [facility] Basophil percentageOrdered B y: Gino Ackerman on 01-02-2023 Basophils/100 WBC (Bld) 0.7 % 0-1 [facility] Bilirubin [Mass/Vol] 0.80 mg/dL 0.20-1.00 [facility] Comment on above: For patients on eltr ombopag therapy, use of [place] TBIL is not recommended. Chloride [Moles/Vol] 106 mmol/L 98-107 [facility] Cholesterol [Mass/Vol] 224 mg/dL <200 [facility] Comment on above: <200 mg/dL Desirable 200-240 mg/dL Borderline >240 mg/dL High Risk Eosinophils/100 WBC (Bld) 5.0 % 0-5 [facility] Glucose [Mass/Vol] 112 mg/dL 74-106 [facility] Comment on above: Fasting Glucose resu lt from 100 to 125 mg/dL suggests IMPAIRED HOMEOSTASIS per A.D.A. criteria. Neutrophils (Bld) [#/Vol] 2.5 10*3/uL 2.0-7.7 [facility] Neutrophils/100 WBC (Bld) 46.4 % 47-70 [facility] Potassium [Moles/Vol] 3.9 mmol/L 3.5-5.1 [facility] Protein [Mass/Vol] 7.2 g/dL 6.4-8.2 [facility] Sodium [Moles/Vol] 139 mmol/L 136-145 [facility] Triglyceride [Mass/Vol] 186 mg/dL <199 [facility] Comment on above: The drugs N-Acetylcy steine and Metamizole may falsely depress this assay.Serum Triglycerides Reference Interval Normal <150 mg/dL Borderline high 150 - 199 mg/dL High 200 - 499 mg/dL Very High > or = 500 mg/dL WBC (Bld) [#/Vol] 5.4 10*3/uL 4.4-11.0 [facility] Blood erythrocytes count (nu mber/volume)Ordered By: Gino Ackerman on 01-02-2023 RBC (Bld) [#/Vol] 4.75 10*6/uL 4.6-6.2 [facility] Blood hemoglobin measurement (mass/volume)Ordered By: Gino Ackerman on 01-02-2023 Hemoglobin (Bld) [Mass/Vol] 14.8 g/dL 13.0-16.5 [facility] Blood lymphocytes/100 leukoc ytesOrdered By: Gino Ackerman on 01-02-2023 Lymphocytes/100 WBC (Bld) 36.2 % 19-41 [facility] Blood monocytes/100 leukocyt esOrdered By: Gino Ackerman on 01-02-2023 Monocytes/100 WBC (Bld) 11.1 % 0-10 [facility] Blood platelet mean volumeOr dered By: Gino Ackerman on 01-02-2023 Platelet mean volume (Bld) [Entitic vol] 10.1 fL 6.2-12.0 [facility] Determination of erythrocyte mean corpuscular volume (MCV)Ordered By: Gino Ackerman on 01-02-2023 MCV (RBC) [Entitic vol] 93.3 fL 80-94 [facility] Hematocrit Auto (Bld) [Volum e fraction]Ordered By: Gino Ackerman on 01-02-2023 Hematocrit (Bld) [Volume fraction] 44.3 % 40-54 [facility] Laboratory - Chemistry and C hemistry - challengeOrdered By: Gino Ackerman on 01-02-2023 ALP [Catalytic activity/Vol] 64 U/L 45-117 [facility] ALT [Catalytic activity/Vol] 59 U/L 16-61 [facility] CO2 [Moles/Vol] 27.0 mmol/L 21.0-32.0 [facility] Globulin (S) [Mass/Vol] 3.5 g/dL 2.2-4.2 [facility] T4 [Mass/Vol] 8.6 ug/dL 4.5-12.1 [facility] Urea nitrogen/Creatinine [Mass ratio] 12.5 mg/mg 10-20 [facility] Laboratory - Hematology and Cell countsOrdered By: Gino Ackerman on 01-02-2023 Erythrocyte distribution width (RBC) [Entitic vol] 42.4 fL 35.1-43.9 [facility] Erythrocyte distribution width (RBC) [Ratio] 12.4 % 11.6-14.6 [facility] Immature granulocytes/100 WBC (Bld) 0.600 % 0.0-0.9 [facility] Comment on above: IG% - Immature Granu locytes (promyelocytes, myelocytes and metamyelocytes) > 1% indicates that a LEFT SHIFT is Present. MCH (RBC) [Entitic mass] 31.2 pg 27.0-32.0 [facility] Nucleated RBC/100 WBC (Bld) [Ratio] 0 % 0-5 [facility] Auto (RBC) [Mass/Vol]Or dered By: Gino Ackerman on 01-02-2023 MCHC (RBC) [Mass/Vol] 33.4 g/dL 32-36 [facility] No Panel InformationOrdered By: Gino Ackerman on 01-02-2023 Estimated GFR (MDRD) Amer 100 mL/min >60 [facility] Comment on above: GFR Calc Estimated GFR (MDRD) Non-Af Amer 82 mL/min >60 [facility] Comment on above: Non- GFR Calc Insulin Level 19.0 mU/L 2.6-37.6 [facility] Prostate Specific Antigen Screen 0.70 ng/mL 0.00-4.00 [facility] Comment on above: This test was perfor med using the TPSA assay method for [employer] chemistry system. Values obtained with differentassay methods cannot be used interchangably.When changing PSA assays in the course of monitoring apatient, additional sequential testing should be carriedout to confirm baseline values. Thyroid Stimulating Hormone (TSH) 2.54 uIU/mL 0.358-3.74 [facility] Platelets bldOrdered By: Irene Ackerman on 01-02-2023 Platelets (Bld) [#/Vol] 280 10*3/uL 150-450 [facility] Serum or plasma albumin amrita urement (mass/volume)Ordered By: Gino Ackerman on 01-02-2023 Albumin [Mass/Vol] 3.7 g/dL 3.2-5.0 [facility] Serum or plasma albumin/glob ulin mass ratioOrdered By: Gino Ackerman on 01-02-2023 Albumin/Globulin [Mass ratio] 1.1 {ratio} 0.9-2.4 [facility] Serum or plasma calcium amrita urement (mass/volume)Ordered By: Gino Ackerman on 01-02-2023 Calcium [Mass/Vol] 8.7 mg/dL 8.5-10.1 [facility] Serum or plasma cholesterol in HDL measurement (mass/volume)Ordered By: Gino Ackerman on 01-02-2023 Cholesterol in HDL [Mass/Vol] 39 mg/dL >40 [facility] Comment on above: The drugs N-Acetylcy steine and Metamizole may falsely depress this assay. Reference Range HDL <40 mg/dL Low HDL Cholesterol HDL >or= 60 mg/dL High HDL Cholesterol Serum or plasma cholesterol in VLDL measurement (mass/volume)Ordered By: Gino Ackerman on 01-02-2023 Cholesterol in VLDL [Mass/Vol] 37 mg/dL 5-40 [facility] Serum or plasma creatinine m easurement (mass/volume)Ordered By: Gino Ackerman on 01-02-2023 Creatinine [Mass/Vol] 1.04 mg/dL 0.70-1.30 [facility] Comment on above: The validity of the calculated GFR & GFRAA in patients over 70 years has not been determined. Clinical correlation is essential. Serum or plasma low density lipoprotein (LDL) cholesterol measurement (mass/volume)Ordered By: Gino Ackerman on 01-02-2023 Cholesterol in LDL [Mass/Vol] 148 mg/dL 0-130 [facility] Serum or plasma urea nitroge n measurement (mass/volume)Ordered By: Gino Ackerman on 01-02-2023 Urea nitrogen [Mass/Vol] 13 mg/dL 7-18 [facility] Thin prep Papanicolaou smear with manual screeningOrdered By: Gino Ackerman on 01-02-2023 Thin prep Papanicolaou smear with manual screening 26 U/L 15-37 [facility] Thin prep Papanicolaou smear with manual screening 6 5-15 [facility] Whole blood hemoglobin A1c/t otal hemoglobin ratio (mass fraction)Ordered By: Gino Ackerman on 01-02-2023 HbA1c (Bld) [Mass fraction] 5.7 % 3.8-5.6 [facility] Comment on above: Normal < 5.7 % Predi abetic 5.7 - 6.4 % Diabetic >or= 6.5 % Please note range changes. FOREIGN BODY REMOVAL, CORNEA W/ SLIT LAMP [facility] Vital Signs Date Time Vital Sign Value Performing Clinician Kayy frederick 08-23-2024 17:03-0500 Blood Pressure Location Gino Ackerman [facility] Medicine [place] 08-23-2024 17:03-0500 Diastolic blood pressure 82 mm[Hg] Gino Riedy [facility] 08-23-2024 17:03-0500 Heart rate 80 /min Gino Riedy [facility] 08-23-2024 17:03-0500 Respiratory rate 18 /min Gino Riedy [facility] 08-23-2024 17:03-0500 SaO2% (BldA) [Mass fraction] 95 % Gino Riedy [facility] 08-23-2024 17:03-0500 Systolic blood pressure 126 mm[Hg] Gino Riedy [facility] 07-26-2024 16:47-0500 Blood Pressure Location Gino Riedy [facility] 07-26-2024 16:47-0500 Diastolic blood pressure 88 mm[Hg] Gino Riedy [facility] 07-26-2024 16:47-0500 Heart rate 82 /min Gnio Riedy [facility] 07-26-2024 16:47-0500 Respiratory rate 16 /min Gino Riedy [facility] 07-26-2024 16:47-0500 SaO2% (BldA) [Mass fraction] 96 % Gino Riedy [facility] 07-26-2024 16:47-0500 Systolic blood pressure 138 mm[Hg] Gino Riedy [facility] 06-21-2024 18:26-0500 Blood Pressure Location Gino Riedy [facility] 06-21-2024 18:26-0500 Diastolic blood pressure 82 mm[Hg] Gino Riedy [facility] 06-21-2024 18:26-0500 Heart rate 78 /min Gino Riedy [facility] 06-21-2024 18:26-0500 Respiratory rate 16 /min Gino Riedy [facility] 06-21-2024 18:26-0500 SaO2% (BldA) [Mass fraction] 96 % Gino Riedy [facility] 06-21-2024 18:26-0500 Systolic blood pressure 128 mm[Hg] Gino Riedy [facility] 05-03-2024 17:28-0400 Blood Pressure Location Gino Riedy [facility] 05-03-2024 17:28-0400 Diastolic blood pressure 86 mm[Hg] Gino Riedy [facility] 05-03-2024 17:28-0400 Heart rate 82 /min Gino Riedy [facility] 05-03-2024 17:28-0400 Respiratory rate 16 /min Gino Riedy [facility] 05-03-2024 17:28-0400 SaO2% (BldA) [Mass fraction] 96 % Gino Riedy [facility] 05-03-2024 17:28-0400 Systolic blood pressure 138 mm[Hg] Gino Riedy [facility] 03-15-2024 16:53-0400 Diastolic blood pressure 88 mm[Hg] Gino Riedy [facility] 03-15-2024 16:53-0400 Mean blood pressure 103 mm[Hg] Gino Riedy [facility] 03-15-2024 16:53-0400 Systolic blood pressure 132 mm[Hg] Gino Riedy [facility] 03-15-2024 16:00-0400 Blood Pressure Location Gino Riedy [facility] 03-15-2024 16:00-0400 Diastolic blood pressure 92 mm[Hg] Gino Riedy [facility] 03-15-2024 16:00-0400 Heart rate 85 /min Gino Riedy [facility] 03-15-2024 16:00-0400 SaO2% (BldA) [Mass fraction] 95 % Gino Riedy [facility] 03-15-2024 16:00-0400 Systolic blood pressure 142 mm[Hg] Gino Riedy [facility] 02-16-2024 16:17-0400 Blood Pressure Location Gino Riedy [facility] 02-16-2024 16:17-0400 Diastolic blood pressure 84 mm[Hg] Gino Riedy [facility] 02-16-2024 16:17-0400 Heart rate 80 /min Gino Riedy [facility] 02-16-2024 16:17-0400 Respiratory rate 16 /min Gino Riedy [facility] 02-16-2024 16:17-0400 SaO2% (BldA) [Mass fraction] 95 % Gino Riedy [facility] 02-16-2024 16:17-0400 Systolic blood pressure 128 mm[Hg] Gino Riedy [facility] 01-19-2024 18:09-0400 Blood Pressure Location Gino Riedy [facility] 01-19-2024 18:09-0400 Diastolic blood pressure 78 mm[Hg] Gino Riedy [facility] 01-19-2024 18:09-0400 Heart rate 82 /min Gino Riedy [facility] 01-19-2024 18:09-0400 SaO2% (BldA) [Mass fraction] 96 % Gino Riedy [facility] 01-19-2024 18:09-0400 Systolic blood pressure 130 mm[Hg] Gino Riedy [facility] 12-15-2023 17:56-0400 Blood Pressure Location Gino Riedy [facility] 12-15-2023 17:56-0400 Diastolic blood pressure 84 mm[Hg] Gino Riedy [facility] 12-15-2023 17:56-0400 Heart rate 80 /min Gino Riedy [facility] 12-15-2023 17:56-0400 Respiratory rate 16 /min Gino Riedy [facility] 12-15-2023 17:56-0400 SaO2% (BldA) [Mass fraction] 96 % Gino Riedy [facility] 12-15-2023 17:56-0400 Systolic blood pressure 130 mm[Hg] Gino Riedy [facility] 11-10-2023 16:00-0400 Blood Pressure Location Gino Riedy [facility] 11-10-2023 16:00-0400 Diastolic blood pressure 86 mm[Hg] Gino Riedy [facility] 11-10-2023 16:00-0400 Heart rate 78 /min Gino Riedy [facility] 11-10-2023 16:00-0400 SaO2% (BldA) [Mass fraction] 96 % Gino Riedy [facility] 11-10-2023 16:00-0400 Systolic blood pressure 132 mm[Hg] Gino Riedy [facility] 10-06-2023 18:16-0400 Blood Pressure Location Gino Riedy [facility] 10-06-2023 18:16-0400 Diastolic blood pressure 80 mm[Hg] Gino Riedy [facility] 10-06-2023 18:16-0400 Heart rate 85 /min Gino Riedy [facility] 10-06-2023 18:16-0400 SaO2% (BldA) [Mass fraction] 93 % Gino Riedy [facility] 10-06-2023 18:16-0400 Systolic blood pressure 126 mm[Hg] Gino Riedy [facility] 01-13-2023 18:23-0400 Blood Pressure Location Gino Riedy [facility] 01-13-2023 18:23-0400 Diastolic blood pressure 88 mm[Hg] Gino Riedy [facility] 01-13-2023 18:23-0400 Heart rate 84 /min Gino Riedy [facility] 01-13-2023 18:23-0400 SaO2% (BldA) [Mass fraction] 96 % Gino Riedy [facility] 01-13-2023 18:23-0400 Systolic blood pressure 164 mm[Hg] Gino Riedy [facility] 12-31-2022 09:16-0400 Diastolic blood pressure 86 mm[Hg] Gino Riedy [facility] 12-31-2022 09:16-0400 Mean blood pressure 108 mm[Hg] Gino Riedy [facility] 12-31-2022 09:16-0400 Systolic blood pressure 152 mm[Hg] Gino Riedy [facility] 12-31-2022 08:26-0400 Blood Pressure Location Gino Riedy [facility] 12-31-2022 08:26-0400 Diastolic blood pressure 92 mm[Hg] Gino Riedy [facility] 12-31-2022 08:26-0400 Heart rate 78 /min Gino Riedy [facility] 12-31-2022 08:26-0400 SaO2% (BldA) [Mass fraction] 94 % Gino Riedy [facility] 12-31-2022 08:26-0400 Systolic blood pressure 166 mm[Hg] Gino Riedy [facility] Encounters Encounter Date Encounter Type Care Provider Facility Start: 01-17-2025 ambulatory Gino D Riedy Facilit y:[facility] Start: 11-15-2024 End: 11-15-2024 ambulatory Gino D Riedy Facility:[facility] Start: 09-29-2024 End: 09-29-2024 ambulatory Darleen LYLE [place] Start: 09-16-2024 ambulatory Argelia Robotham Facilit y:[facility] Start: 09-16-2024 End: 09-16-2024 ambulatory Argelia Robotham Facility:[facility] Start: 08-23-2024 End: 08-23-2024 ambulatory INSULATION CUPOLA OPERATOR Gino D Riedy Facility:[facility] Start: 08-23-2024 End: 08-23-2024 Patient encounter procedure Gino D Riedy [facility] Start: 08-09-2024 End: 08-09-2024 ambulatory Gino Riedy MINE PATROL Facility:[facility] Start: 08-03-2024 ambulatory MD BRODIE PATEL Facility:[facility] Start: 07-26-2024 End: 07-26-2024 ambulatory INSULATION CUPOLA OPERATOR Gino D Riedy Facility:[facility] Start: 07-26-2024 End: 07-26-2024 Patient encounter procedure Gino D Riedy [facility] Start: 07-19-2024 End: 07-19-2024 ambulatory Igno Riedy MINE PATROL Facility:[facility] Start: 06-21-2024 End: 06-21-2024 Lab Drop off Gino D Riedy [facility] Start: 06-21-2024 End: 06-21-2024 ambulatory INSULATION CUPOLA OPERATOR Gino D Riedy [place] Start: 06-21-2024 End: 06-21-2024 Patient encounter procedure Gino D Riedy [facility] Start: 05-03-2024 End: 05-03-2024 ambulatory INSULATION CUPOLA OPERATOR Gino D Riedy Facility:[facility] Start: 05-03-2024 End: 05-03-2024 Patient encounter procedure Gino D Riedy [facility] Start: 03-15-2024 End: 03-15-2024 ambulatory INSULATION CUPOLA OPERATOR Gino D Riedy Facility:[facility] Start: 03-15-2024 End: 03-15-2024 Patient encounter procedure Gino D Riedy [facility] Start: 02-21-2024 End: 02-21-2024 ambulatory Gino Riedy MINE PATROL Facility:[facility] Start: 02-16-2024 End: 02-16-2024 ambulatory INSULATION CUPOLA OPERATOR Gino D Riedy Facility:[facility] Start: 02-16-2024 End: 02-16-2024 Patient encounter procedure Gino D Riedy [facility] Start: 01-19-2024 End: 01-19-2024 ambulatory INSULATION CUPOLA OPERATOR Gino D Riedy Facility:[facility] Start: 01-19-2024 End: 01-19-2024 Patient encounter procedure Gino D Riedy [facility] Start: 12-15-2023 End: 12-15-2023 ambulatory INSULATION CUPOLA OPERATOR Gino D Riedy Facility:[facility] Start: 12-15-2023 End: 12-15-2023 Patient encounter procedure Gino D Riedy [facility] Start: 11-10-2023 End: 11-10-2023 ambulatory INSULATION CUPOLA OPERATOR Gino D Riedy Facility:[facility] Start: 11-10-2023 End: 11-10-2023 Patient encounter procedure Gino D Riedy [facility] Start: 10-11-2023 End: 10-11-2023 ambulatory [facility] Work Phone: Start: 10-11-2023 End: 10-11-2023 Patient encounter procedure [facility] Work Phone: Start: 10-11-2023 End: 10-11-2023 ambulatory Gino Riedy MINE PATROL Facility:[facility] Start: 10-06-2023 End: 10-06-2023 ambulatory INSULATION CUPOLA OPERATOR Gino D Riedy Facility:[facility] Start: 10-06-2023 End: 10-06-2023 Patient encounter procedure Gino Brannon Tyron [facility] Start: 04-04-2023 End: 04-04-2023 ambulatory GINO ACKERMAN Facility:[facility] Start: 04-02-2023 End: 04-02-2023 ambulatory RAOUL BRITO Facility:[facility] Start: 04-02-2023 End: 04-02-2023 Patient encounter procedure Raoul Brito MD Work Phone: Ophthalmology Comment on above: Foreign body of righ t cornea, initial encounter (Primary Dx); High myopia, both eyes; Hx of LASIK Start: 02-19-2023 End: 02-19-2023 Emergency department patient visit Dr. Ge Potter Facility:[id number] Start: 01-13-2023 End: 01-13-2023 Patient encounter procedure Ginokofi Ackerman [facility] Start: 01-02-2023 End: 01-02-2023 ambulatory [facility] Work Phone: Start: 01-02-2023 End: 01-02-2023 Patient encounter procedure [facility] Start: 12-31-2022 End: 12-31-2022 Patient encounter procedure Ginokofi Ackerman [facility] Start: 12-31-2022 End: 12-31-2022 Well adult monitoring check done Gino Ackerman [facility] Procedures Date Procedure Procedure Detail Performing Clinician Start: 04-02-2023 Rmvl fb xtrnl eye co rneal w/slit lamp Raoul Brito MD Work Phone: Start: 04-02-2023 History of laser ass isted in situ keratomileusis Hx of LASIK Raoul Brito MD Work Phone: Appendectomy Gino Tyron Hernia repair Gino Ackerman Tonsillectomy Gino Ackerman Plan of Treatment Date Care Activity Detail Author Start: 03-28-2023 Influenza vaccination INFLUENZA (#1) [facility] Start: 07-28-2022 DEPRESSION ASSESSMENT DEPRESSION ASS ESSMENT [facility] Start: 2013 LIPID SCREEN LIPID SCREEN [facility] Start: 1997 Urine microalbumin profile DTAP,TDAP ,TD (1 - Tdap) [facility] Start: 1996 HEPATITIS C SCREENING HEPATITIS C SC REENING [facility] Start: 1996 HIV SCREENING HIV SCREENING [facility] Start: 1978 COVID-19 VACCINE (#1) COVID-19 VACCI NE (#1) [facility] Start: 1978 HEPATITIS B (1 of 3 - 3-dose series) HEPATITIS B (1 of 3 - 3-dose series) [facility] Immunizations Immunization Date Immunization Notes Care Provider Artie morgan 12-11-1983 DTaP, unspecified formulation Gino Riedy [facility] 12-11-1983 poliovirus vaccine, unspecified formulation Gino Riedy [facility] 11-10-1980 poliovirus vaccine, unspecified formulation Gino Riedy [facility] 09-09-1979 measles, mumps and rubella virus vaccine Gino Riedy [facility] 01-26-1979 DTaP, unspecified formulation Gino Riedy [facility] 1978 DTaP, unspecified formulation Gino Riedy [facility] 1978 poliovirus vaccine, unspecified formulation Gino Riedy [facility] 1978 DTaP, unspecified formulation Gino Riedy [facility] 1978 poliovirus vaccine, unspecified formulation Gino Riedy [facility] NEGATED: Highlighted row has not occurred!08-23-2024 influenza virus vaccine, unspecified formulation Gino Riedy [facility] NEGATED: Highlighted row has not occurred!07-26-2024 influenza virus vaccine, unspecified formulation Gino Riedy [facility] NEGATED: Highlighted row has not occurred!06-21-2024 influenza virus vaccine, unspecified formulation Gino Riedy [facility] NEGATED: Highlighted row has not occurred!05-03-2024 influenza virus vaccine, unspecified formulation Gino Riedy [facility] Payers Date Payer Category Payer Self-pay [id number] 2019 Private Health Insurance [id number] 2019 Private Health Insurance [facility] CHOICE PLUS [id number] 2019-Present [phone] [address] [place] [address] O [id number] 1978 Unknown [id number] 2.16.840.1.015264.3.579. 2.1069 1978 Unknown [id number] 2.16.840.1.574542.3.579. 2.727 1978 Unknown [id number] 2.16.840.1.555261.3.579. 2.727 1978 Unknown [id number] 2.16.840.1.856384.3.579. 2.72 1978 Unknown [id number] 2.16.840.1.171935.3.579. 2.727 1978 Unknown [id number] 2.16.840.1.511986.3.579. 2.72 1978 Unknown [id number] 2.16.840.1.802871.3.579. 272 1978 Unknown [id number] 2.840.1.046465.3.579. 2.72 1978 Unknown [id number] 2.16.840.1.760493.3.579. 2.72 1978 Unknown [id number] 2.16.840.1.638872.3.579. 2.72 1978 Unknown [id number] 2.16.840.1.001119.3.579. 2.72 1978 Unknown [id number] 2.16840.1.092449.3.579. 2.72 1978 Unknown [id number] 2.16.840.1.763119.3.579. 2.72 1978 Unknown [id number] 2.16.840.1.797330.3.579. 272 1978 Unknown [id number] 2.16.840.1.797271.3.579. 2.727 1978 Unknown [id number] 2.16.840.1.899452.3.579. 272 Unknown [id number] 2.16.840.1.195330.3.579. 2.462 Unknown [id number] 2.16.840.1.532887.3.579. 2.462 Unknown [id number] 2.16.840.1.132946.3.579. 2.462 Unknown [id number] 2.16.840.1.393693.3.579. 2.462 Unknown [id number] 2.16.840.1.145447.3.579. 2.462 Unknown [id number] 2.16.840.1.516810.3.579. 2.462 Unknown [id number] 2.16.840.1.842062.3.579. 2.462 Unknown [id number] 2.16.840.1.194328.3.579. 2.462 Social History Date Type Detail Facility Start: 12-31-2022 End: 08-23-2024 Tobacco smoking status Never smoked tobacco (finding) [facility] Tobacco smoking status Never [facility] Start: 04-02-2023 Sex Assigned At Male F [facility] Start: 1980 Sex Assigned At Male W [facility] Start: 04-02-2023 Tobacco use and exposure Smokeless tobacco non-user [facility] Start: 04-02-2023 Alcohol intake Current drinke r of alcohol (finding) [facility] Start: 04-02-2023 History of Social function [facility] Start: 09-23-2020 Alcohol Comment Socially [facility] Start: 1980 Sex Assigned At Not [facility] file [facility] Functional Status Date Assessment Result Facility 08-23-2024 Functional Status N/A [facility] 07-26-2024 Functional Status N/A [facility] 06-21-2024 Functional Status N/A [facility] 05-03-2024 Functional Status N/A [facility] 03-15-2024 Functional Status N/A [facility] 02-16-2024 Functional Status N/A [facility] 01-19-2024 Functional Status N/A [facility] 12-15-2023 Functional Status N/A [facility] 11-10-2023 Functional Status N/A [facility] 10-06-2023 Functional Status N/A [facility] 01-13-2023 Functional Status N/A [facility] 12-31-2022 Functional Status N/A [facility] Clinical Notes 12-26-2022 to 11-15-2024 Raoul Brito MD - 04/02/2023 4:47 PM EDTLaboratoryLaboratoryLaboratoryLaboratoryLaboratoryLaboratoryLaboratoryLaborat oryLaboratoryLaboratoryLaboratoryLaboratoryLaboratory Note Date & Type Note Facility 11-15-2024 Note Patient Education Nutrition DASH Eating Plan DASH stands for Dietary Approaches to Stop Hypertension. The DASH eating plan is a healthy eating plan that has been shown to: ??? Lower high blood pressure (hypertension). ??? Reduce your risk for type 2 diabetes, heart disease, and stroke. ??? Help with weight loss. What are tips for following this plan? Reading food labels ??? Check food labels for the amount of salt (sodium) per serving. Choose foods with less than 5 percent of the Daily Value (DV) of sodium. In general, foods with less than 300 milligrams (mg) of sodium per serving fit into this eating plan. ??? To find whole grains, look for the word whole as the first word in the ingredient list. Shopping ??? Buy products labeled as low-sodium or no salt added. ??? Buy fresh foods. Avoid canned foods and pre-made or frozen meals. Cooking ??? Try not to add salt when you cook. Use salt-free seasonings or herbs instead of table salt or sea salt. Check with your health care provider or pharmacist before using salt substitutes. ??? Do not parsons foods. Cook foods in healthy ways, such as baking, boiling, grilling, roasting, or broiling. ??? Cook using oils that are good for your heart. These include olive, canola, avocado, soybean, and sunflower oil. Meal planning ??? Eat a balanced diet. This should include: ? 4 or more servings of fruits and 4 or more servings of vegetables each day. Try to fill half of your plate with fruits and vegetables. ? 6?8 servings of whole grains each day. ? 6 or less servings of lean meat, poultry, or fish each day. 1 oz is 1 serving. A 3 oz (85 g) serving of meat is about the same size as the palm of your hand. One egg is 1 oz (28 g). ? 2?3 servings of low-fat dairy each day. One serving is 1 cup (237 mL). ? 1 serving of nuts, seeds, or beans 5 times each week. ? 2?3 servings of heart-healthy fats. Healthy fats called omega-3 fatty acids are found in foods such as walnuts, flaxseeds, fortified milks, and eggs. These fats are also found in cold-water fish, such as sardines, salmon, and mackerel. ??? Limit how much you eat of: ? Canned or prepackaged foods. ? Food that is high in trans fat, such as fried foods. ? Food that is high in saturated fat, such as fatty meat. ? Desserts and other sweets, sugary drinks, and other foods with added sugar. ? Full-fat dairy products. ??? Do not salt foods before eating. ??? Do not eat more than 4 egg yolks a week. ??? Try to eat at least 2 vegetarian meals a week. ??? Eat more home-cooked food and less restaurant, buffet, and fast food. Lifestyle ??? When eating at a restaurant, ask if your food can be made with less salt or no salt. ??? If you drink alcohol: ? Limit how much you have to: ? 0?1 drink a day if you are female. ? 0?2 drinks a day if you are male. ? Know how much alcohol is in your drink. In the [place] one drink is one 12 oz bottle of beer (355 mL), one 5 oz glass of wine (148 mL), or one 1? oz glass of hard liquor (44 mL). General information ??? Avoid eating more than 2,300 mg of salt a day. If you have hypertension, you may need to reduce your sodium intake to 1,500 mg a day. ??? Work with your provider to stay at a healthy body weight or lose weight. Ask what the best weight range is for you. ??? On most days of the week, get at least 30 minutes of exercise that causes your heart to beat faster. This may include walking, swimming, or biking. ??? Work with your provider or dietitian to adjust your eating plan to meet your specific calorie needs. What foods should I eat? Fruits All fresh, dried, or frozen fruit. Canned fruits that are in their natural juice and do not have sugar added to them. Vegetables Fresh or frozen vegetables that are raw, steamed, roasted, or grilled. Low-sodium or reduced-sodium tomato and vegetable juice. [...] Canola, safflower, olive, avocado, soybean, and sunflower oils (more content not included)... [facility] 08-23-2024 Hospital Discharge instructions Patient Education 08/23/2024 17:12:07 DASH Eating Plan DASH Eating Plan DASH stands for Dietary Approaches to Stop Hypertension. The DASH eating plan is a healthy eating plan that has been shown to: Lower high blood pressure (hypertension). Reduce your risk for type 2 diabetes, heart disease, and stroke. Help with weight loss. What are tips for following this plan? Reading food labels Check food labels for the amount of salt (sodium) per serving. Choose foods with less than 5 percent of the Daily Value (DV) of sodium. In general, foods with less than 300 milligrams (mg) of sodium per serving fit into this eating plan. To find whole grains, look for the word whole as the first word in the ingredient list. Shopping Buy products labeled as low-sodium or no salt added. Buy fresh foods. Avoid canned foods and pre-made or frozen meals. Cooking Try not to add salt when you cook. Use salt-free seasonings or herbs instead of table salt or sea salt. Check with your health care provider or pharmacist before using salt substitutes. Do not parsons foods. Cook foods in healthy ways, such as baking, boiling, grilling, roasting, or broiling. Cook using oils that are good for your heart. These include olive, canola, avocado, soybean, and sunflower oil. Meal planning Eat a balanced diet. This should include: ?4 or more servings of fruits and 4 or more servings of vegetables each day. Try to fill half of your plate with fruits and vegetables. ?6 8 servings of whole grains each day. ?6 or less servings of lean meat, poultry, or fish each day. 1 oz is 1 serving. A 3 oz (85 g) serving of meat is about the same size as the palm of your hand. One egg is 1 oz (28 g). ?2 3 servings [...] is high in trans fat, such as fried foods. ?Food that is high in [...] Lifestyle When eating at a restaurant, ask if your food can be made with less salt or no salt. If you drink alcohol: ?Limit how much you have to: ?0 1 drink a day if you are female. ?0 2 drinks a day if you are male. ?Know how much alcohol is in your drink. In the [place] one drink is one 12 oz bottle of beer (355 mL), one 5 oz glass of wine (148 mL), or one 1 oz glass of hard liquor (44 mL). General information Avoid eating more than 2,300 mg of salt a day. If you have hypertension, you may need to reduce your sodium intake to 1,500 mg a day. Work with your provider to stay at a healthy body weight or lose weight. Ask what the best weight range is for you. On most days of the week, get at least 30 minutes of exercise that causes your heart to beat faster. This may include walking, swimming, or biking. Work with your provider or dietitian to adjust your eating plan to meet your specific calorie needs. What foods should I eat? Fruits All fresh, dried, or frozen fruit. Canned fruits that are in their natural juice and do not have sugar added to them. Vegetables Fresh or frozen vegetables that are raw, steamed, roasted, or grilled. Low-sodium or reduced-sodium tomato and vegetable juice. [...] The items listed above may not be all the foods and drinks you can have. Talk to a dietitian to learn more. What foods should I avoid? Fruits Canned fruit in a light or heavy syrup. Fried fruit. Fruit in cream or butter sauce. Vegetables Creamed or fried vegetables. Vegetables in a cheese sauce. Regular canned vegetables that are not marked as low-sodium or reduced-sodium. Regular canned tomato sauce and paste that are not marked as low-sodium or reduced-sodium. Regular tomato and vegetable juices that are not marked as low-sodium or reduced-sodium. Pickles. Olives. Grains Baked goods made with fat, such as croissants, muffins, or some breads. Dry pasta or rice meal packs. Meats and other proteins Fatty cuts of meat. Ribs. Fried meat. Thomas. Bologna, salami, and other precooked or cured meats, such as sausages or meat loaves, that are not lean and low in sodium. Fat from the back of a pig (fatback). Bratwurst. Salted nuts and seeds. Canned beans with added salt. Canned or smoked fish. Whole eggs or egg yolks. Chicken or turkey with skin. Dairy Whole or 2% milk, cream, and [id number]. Whole or full-fat cream cheese. Whole-fat or [...] Barbecue sauce. Teriyaki sauce. Soy sauce, including reduced-sodium soy sauce. Steak sauce. Canned and packaged gravies. Fish sauce. Oyster sauce. Cocktail sauce. Store-bought horseradish. Ketchup. Mustard. Meat flavorings and tenderizers. Bouillon cubes. Hot sauces. Pre-made or packaged marinades. Pre-made or packaged taco seasonings. Relishes. Regular salad dressings. Other foods Salted popcorn and pretzels. The items listed above may not be all the foods and drinks you should avoid. Talk to a dietitian to learn more. Where to find more information National Heart, Lung, and Blood Honor (NHLBI): nhlbi.nih.gov [place] [employer] (AHA): heart.org Academy of Nutrition and Dietetics: eatright.org National Kidney Foundation (NKF): kidney.org This information is not intended to replace advice given to you by your health care provider. Make sure you discuss any questions you have with your health care provider. Document Revised: 07/31/2023 Document Reviewed: 07/31/2023 [email or web address] Patient Education 2023 [employer]. 08/23/2024 17:12:06 BMI for Adults BMI for Adults Body mass index (BMI) is a number found using a person's weight and height. BMI can help tell how much of a person's weight is made up of fat. BMI does not measure body fat directly. It is used instead of tests that directly measure body fat, which can be difficult and expensive. What are BMI measurements used for? BMI is useful to: Find out if your weight puts you at higher risk for medical problems. Help recommend changes, such as in diet and exercise. This can help you reach a healthy weight. BMI screening can be done again to see if these changes are working. How is BMI calculated? Your height and weight are measured. The BMI is found from those numbers. This can be done with [place] or metric measurements. Note that charts and online BMI calculators are available to help you find your BMI quickly and easily without doing these calculations. To calculate your BMI in [place] measurements: 1.Measure your weight in pounds (lb). 2.Multiply the number of pounds by 703. So, for an adult who weighs 150 lb, multiply that number by 703: 150 x 703, which equals 105,450. 3.Measure your height in inches. Then multiply that number by itself to get a measurement called inches squared. So, for an adult who is 70 inches tall, the inches squared measurement is 70 inches x 70 inches, which equals 4,900 inches squared. 4.Divide the total from step 2 (number of lb x 703) by the total from step 3 (inches squared): 105,450 4,900 = 21.5. This is your BMI. To calculate your BMI in metric measurements: 1.Measure your weight in kilograms (kg). For this example, the weight is 70 kg. 2.Measure your height in meters (m). Then multiply that number by itself to get a measurement called meters squared. So, for an adult who is 1.75 m tall, the meters squared measurement is 1.75 m x 1.75 m, which equals 3.1 meters squared. 3.Divide the number of kilograms (your weight) by the meters squared number. In this example: 70 3.1 = 22.6. This is your BMI. What do the results mean? BMI charts are used to see if you are underweight, normal weight, overweight, or obese. The following guidelines will be used: Underweight: BMI less than 18.5. Normal weight: BMI between 18.5 and 24.9. Overweight: BMI between 25 and 29.9. Obese: BMI of 30 or above. BMI is a tool and cannot diagnose a condition. Talk with your health care provider about what your BMI means for you. Keep these notes in mind: Weight includes fat and muscle. Someone with a muscular build, such as an athlete, may have a BMI that is higher than 24.9. In cases like these, BMI is not a correct measure of body fat. If you have a BMI of 25 or higher, your provider may need to do more testing to find out if excess body fat is the cause. BMI is measured the same way for males and females. Females usually have more body fat than males of the same height and weight. Where to find more information For more information about BMI, including tools to quickly find your BMI, go to: Centers for Disease Control and Prevention: cdc.gov [place] [employer]: heart.org National Heart, Lung, and Blood Honor: nhlbi.nih.gov This information is not intended to replace advice given to you by your health care provider. Make sure you discuss any questions you have with your health care provider. Document Revised: 04/03/2023 Document Reviewed: 03/27/2023 [email or web address] Patient Education 2023 [employer]. Follow Up Care 06/21/2024 19:13:19 With:Gino Ackerman CNP Address: When:Within 2 Month(s) Comments:weight management, f/u after hernia surgery-[facility] [place] 08-23-2024 Note Patient Education Nutrition DASH Eating Plan DASH stands for Dietary Approaches to Stop Hypertension. The DASH eating plan is a healthy eating plan that has been shown to: ??? Lower high blood pressure (hypertension). ??? Reduce your risk for type 2 diabetes, heart disease, and stroke. ??? Help with weight loss. What are tips for following this plan? Reading food labels ??? Check food labels for the amount of salt (sodium) per serving. Choose foods with less than 5 percent of the Daily Value (DV) of sodium. In general, foods with less than 300 milligrams (mg) of sodium per serving fit into this eating plan. ??? To find whole grains, look for the word whole as the first word in the ingredient list. Shopping ??? Buy products labeled as low-sodium or no salt added. ??? Buy fresh foods. Avoid canned foods and pre-made or frozen meals. Cooking ??? Try not to add salt when you cook. Use salt-free seasonings or herbs instead of table salt or sea salt. Check with your health care provider or pharmacist before using salt substitutes. ??? Do not parsons foods. Cook foods in healthy ways, such as baking, boiling, grilling, roasting, or broiling. ??? Cook using oils that are good for your heart. These include olive, canola, avocado, soybean, and sunflower oil. Meal planning ??? Eat a balanced diet. This should include: ? 4 or more servings of fruits and 4 or more servings of vegetables each day. Try to fill half of your plate with fruits and vegetables. ? 6?8 servings of whole grains each day. ? 6 or less servings of lean meat, poultry, or fish each day. 1 oz is 1 serving. A 3 oz (85 g) serving of meat is about the same size as the palm of your hand. One egg is 1 oz (28 g). ? 2?3 servings of low-fat dairy each day. One serving is 1 cup (237 mL). ? 1 serving of nuts, seeds, or beans 5 times each week. ? 2?3 servings of heart-healthy fats. Healthy fats called omega-3 fatty acids are found in foods such as walnuts, flaxseeds, fortified milks, and eggs. These fats are also found in cold-water fish, such as sardines, salmon, and mackerel. ??? Limit how much you eat of: ? Canned or prepackaged foods. ? Food that is high in trans fat, such as fried foods. ? Food that is high in saturated fat, such as fatty meat. ? Desserts and other sweets, sugary drinks, and other foods with added sugar. ? Full-fat dairy products. ??? Do not salt foods before eating. ??? Do not eat more than 4 egg yolks a week. ??? Try to eat at least 2 vegetarian meals a week. ??? Eat more home-cooked food and less restaurant, buffet, and fast food. Lifestyle ??? When eating at a restaurant, ask if your food can be made with less salt or no salt. ??? If you drink alcohol: ? Limit how much you have to: ? 0?1 drink a day if you are female. ? 0?2 drinks a day if you are male. ? Know how much alcohol is in your drink. In the [place] one drink is one 12 oz bottle of beer (355 mL), one 5 oz glass of wine (148 mL), or one 1? oz glass of hard liquor (44 mL). General information ??? Avoid eating more than 2,300 mg of salt a day. If you have hypertension, you may need to reduce your sodium intake to 1,500 mg a day. ??? Work with your provider to stay at a healthy body weight or lose weight. Ask what the best weight range is for you. ??? On most days of the week, get at least 30 minutes of exercise that causes your heart to beat faster. This may include walking, swimming, or biking. ??? Work with your provider or dietitian to adjust your eating plan to meet your specific calorie needs. What foods should I eat? Fruits All fresh, dried, or frozen fruit. Canned fruits that are in their natural juice and do not have sugar added to them. Vegetables Fresh or frozen vegetables that are raw, steamed, roasted, or grilled. Low-sodium or reduced-sodium tomato and vegetable juice. [...] Canola, safflower, olive, avocado, soybean, and sunflower oils (more content not included)... [facility] 07-26-2024 Hospital Discharge instructions Patient Education 07/26/2024 16:54:29 DASH Eating Plan DASH Eating Plan DASH stands for Dietary Approaches to Stop Hypertension. The DASH eating plan is a healthy eating plan that has been shown to: Lower high blood pressure (hypertension). Reduce your risk for type 2 diabetes, heart disease, and stroke. Help with weight loss. What are tips for following this plan? Reading food labels Check food labels for the amount of salt (sodium) per serving. Choose foods with less than 5 percent of the Daily Value (DV) of sodium. In general, foods with less than 300 milligrams (mg) of sodium per serving fit into this eating plan. To find whole grains, look for the word whole as the first word in the ingredient list. Shopping Buy products labeled as low-sodium or no salt added. Buy fresh foods. Avoid canned foods and pre-made or frozen meals. Cooking Try not to add salt when you cook. Use salt-free seasonings or herbs instead of table salt or sea salt. Check with your health care provider or pharmacist before using salt substitutes. Do not parsons foods. Cook foods in healthy ways, such as baking, boiling, grilling, roasting, or broiling. Cook using oils that are good for your heart. These include olive, canola, avocado, soybean, and sunflower oil. Meal planning Eat a balanced diet. This should include: ?4 or more servings of fruits and 4 or more servings of vegetables each day. Try to fill half of your plate with fruits and vegetables. ?6 8 servings of whole grains each day. ?6 or less servings of lean meat, poultry, or fish each day. 1 oz is 1 serving. A 3 oz (85 g) serving of meat is about the same size as the palm of your hand. One egg is 1 oz (28 g). ?2 3 servings [...] is high in trans fat, such as fried foods. ?Food that is high in [...] Lifestyle When eating at a restaurant, ask if your food can be made with less salt or no salt. If you drink alcohol: ?Limit how much you have to: ?0 1 drink a day if you are female. ?0 2 drinks a day if you are male. ?Know how much alcohol is in your drink. In the [place] one drink is one 12 oz bottle of beer (355 mL), one 5 oz glass of wine (148 mL), or one 1 oz glass of hard liquor (44 mL). General information Avoid eating more than 2,300 mg of salt a day. If you have hypertension, you may need to reduce your sodium intake to 1,500 mg a day. Work with your provider to stay at a healthy body weight or lose weight. Ask what the best weight range is for you. On most days of the week, get at least 30 minutes of exercise that causes your heart to beat faster. This may include walking, swimming, or biking. Work with your provider or dietitian to adjust your eating plan to meet your specific calorie needs. What foods should I eat? Fruits All fresh, dried, or frozen fruit. Canned fruits that are in their natural juice and do not have sugar added to them. Vegetables Fresh or frozen vegetables that are raw, steamed, roasted, or grilled. Low-sodium or reduced-sodium tomato and vegetable juice. [...] The items listed above may not be all the foods and drinks you can have. Talk to a dietitian to learn more. What foods should I avoid? Fruits Canned fruit in a light or heavy syrup. Fried fruit. Fruit in cream or butter sauce. Vegetables Creamed or fried vegetables. Vegetables in a cheese sauce. Regular canned vegetables that are not marked as low-sodium or reduced-sodium. Regular canned tomato sauce and paste that are not marked as low-sodium or reduced-sodium. Regular tomato and vegetable juices that are not marked as low-sodium or reduced-sodium. Pickles. Olives. Grains Baked goods made with fat, such as croissants, muffins, or some breads. Dry pasta or rice meal packs. Meats and other proteins Fatty cuts of meat. Ribs. Fried meat. Thomas. Bologna, salami, and other precooked or cured meats, such as sausages or meat loaves, that are not lean and low in sodium. Fat from the back of a pig (fatback). Bratwurst. Salted nuts and seeds. Canned beans with added salt. Canned or smoked fish. Whole eggs or egg yolks. Chicken or turkey with skin. Dairy Whole or 2% milk, cream, and [id number]. Whole or full-fat cream cheese. Whole-fat or sweetened yogurt. Full-fat cheese. Nondairy creamers. Whipped toppings. Processed cheese and cheese spreads. Fats and oils Butter. Stick margarine. Lard. Shortening. Ghee. Thomas fat. Tropical oils, such as coconut, palm kernel, or palm oil. Seasonings and condiments Onion salt, garlic salt, seasoned salt, table salt, and sea salt. [facility] sauce. Tartar sauce. Barbecue sauce. Teriyaki sauce. Soy sauce, including reduced-sodium soy sauce. Steak sauce. Canned and packaged gravies. Fish sauce. Oyster sauce. Cocktail sauce. Store-bought horseradish. Ketchup. Mustard. Meat flavorings and tenderizers. Bouillon cubes. Hot sauces. Pre-made or packaged marinades. Pre-made or packaged taco seasonings. Relishes. Regular salad dressings. Other foods Salted popcorn and pretzels. The items listed above may not be all the foods and drinks you should avoid. Talk to a dietitian to learn more. Where to find more information National Heart, Lung, and Blood Honor (NHLBI): nhlbi.nih.gov [place] [employer] (AHA): heart.org Academy of Nutrition and Dietetics: eatright.org National Kidney Foundation (NKF): kidney.org This information is not intended to replace advice given to you by your health care provider. Make sure you discuss any questions you have with your health care provider. Document Revised: 07/31/2023 Document Reviewed: 07/31/2023 [email or web address] Patient Education 2023 [employer]. 07/26/2024 16:54:28 BMI for Adults BMI for Adults Body mass index (BMI) is a number found using a person's weight and height. BMI can help tell how much of a person's weight is made up of fat. BMI does not measure body fat directly. It is used instead of tests that directly measure body fat, which can be difficult and expensive. What are BMI measurements used for? BMI is useful to: Find out if your weight puts you at higher risk for medical problems. Help recommend changes, such as in diet and exercise. This can help you reach a healthy weight. BMI screening can be done again to see if these changes are working. How is BMI calculated? Your height and weight are measured. The BMI is found from those numbers. This can be done with [place] or metric measurements. Note that charts and online BMI calculators are available to help you find your BMI quickly and easily without doing these calculations. To calculate your BMI in [place] measurements: 1.Measure your weight in pounds (lb). 2.Multiply the number of pounds by 703. So, for an adult who weighs 150 lb, multiply that number by 703: 150 x 703, which equals 105,450. 3.Measure your height in inches. Then multiply that number by itself to get a measurement called inches squared. So, for an adult who is 70 inches tall, the inches squared measurement is 70 inches x 70 inches, which equals 4,900 inches squared. 4.Divide the total from step 2 (number of lb x 703) by the total from step 3 (inches squared): 105,450 4,900 = 21.5. This is your BMI. To calculate your BMI in metric measurements: 1.Measure your weight in kilograms (kg). For this example, the weight is 70 kg. 2.Measure your height in meters (m). Then multiply that number by itself to get a measurement called meters squared. So, for an adult who is 1.75 m tall, the meters squared measurement is 1.75 m x 1.75 m, which equals 3.1 meters squared. 3.Divide the number of kilograms (your weight) by the meters squared number. In this example: 70 3.1 = 22.6. This is your BMI. What do the results mean? BMI charts are used to see if you are underweight, normal weight, overweight, or obese. The following guidelines will be used: Underweight: BMI less than 18.5. Normal weight: BMI between 18.5 and 24.9. Overweight: BMI between 25 and 29.9. Obese: BMI of 30 or above. BMI is a tool and cannot diagnose a condition. Talk with your health care provider about what your BMI means for you. Keep these notes in mind: Weight includes fat and muscle. Someone with a muscular build, such as an athlete, may have a BMI that is higher than 24.9. In cases like these, BMI is not a correct measure of body fat. If you have a BMI of 25 or higher, your provider may need to do more testing to find out if excess body fat is the cause. BMI is measured the same way for males and females. Females usually have more body fat than males of the same height and weight. Where to find more information For more information about BMI, including tools to quickly find your BMI, go to: Centers for Disease Control and Prevention: cdc.gov [place] [employer]: heart.org National Heart, Lung, and Blood Honor: nhlbi.nih.gov This information is not intended to replace advice given to you by your health care provider. Make sure you discuss any questions you have with your health care provider. Document Revised: 04/03/2023 Document Reviewed: 03/27/2023 [email or web address] Patient Education 2023 [employer]. Follow Up Care 06/21/2024 19:09:32 With:Gino Ackerman CNP Address: When:Within 2 Week(s) [facility] [employer] 07-26-2024 Note Patient Education Nutrition DASH Eating Plan DASH stands for Dietary Approaches to Stop Hypertension. The DASH eating plan is a healthy eating plan that has been shown to: ??? Lower high blood pressure (hypertension). ??? Reduce your risk for type 2 diabetes, heart disease, and stroke. ??? Help with weight loss. What are tips for following this plan? Reading food labels ??? Check food labels for the amount of salt (sodium) per serving. Choose foods with less than 5 percent of the Daily Value (DV) of sodium. In general, foods with less than 300 milligrams (mg) of sodium per serving fit into this eating plan. ??? To find whole grains, look for the word whole as the first word in the ingredient list. Shopping ??? Buy products labeled as low-sodium or no salt added. ??? Buy fresh foods. Avoid canned foods and pre-made or frozen meals. Cooking ??? Try not to add salt when you cook. Use salt-free seasonings or herbs instead of table salt or sea salt. Check with your health care provider or pharmacist before using salt substitutes. ??? Do not parsons foods. Cook foods in healthy ways, such as baking, boiling, grilling, roasting, or broiling. ??? Cook using oils that are good for your heart. These include olive, canola, avocado, soybean, and sunflower oil. Meal planning ??? Eat a balanced diet. This should include: ? 4 or more servings of fruits and 4 or more servings of vegetables each day. Try to fill half of your plate with fruits and vegetables. ? 6?8 servings of whole grains each day. ? 6 or less servings of lean meat, poultry, or fish each day. 1 oz is 1 serving. A 3 oz (85 g) serving of meat is about the same size as the palm of your hand. One egg is 1 oz (28 g). ? 2?3 servings of low-fat dairy each day. One serving is 1 cup (237 mL). ? 1 serving of nuts, seeds, or beans 5 times each week. ? 2?3 servings of heart-healthy fats. Healthy fats called omega-3 fatty acids are found in foods such as walnuts, flaxseeds, fortified milks, and eggs. These fats are also found in cold-water fish, such as sardines, salmon, and mackerel. ??? Limit how much you eat of: ? Canned or prepackaged foods. ? Food that is high in trans fat, such as fried foods. ? Food that is high in saturated fat, such as fatty meat. ? Desserts and other sweets, sugary drinks, and other foods with added sugar. ? Full-fat dairy products. ??? Do not salt foods before eating. ??? Do not eat more than 4 egg yolks a week. ??? Try to eat at least 2 vegetarian meals a week. ??? Eat more home-cooked food and less restaurant, buffet, and fast food. Lifestyle ??? When eating at a restaurant, ask if your food can be made with less salt or no salt. ??? If you drink alcohol: ? Limit how much you have to: ? 0?1 drink a day if you are female. ? 0?2 drinks a day if you are male. ? Know how much alcohol is in your drink. In the [place] one drink is one 12 oz bottle of beer (355 mL), one 5 oz glass of wine (148 mL), or one 1? oz glass of hard liquor (44 mL). General information ??? Avoid eating more than 2,300 mg of salt a day. If you have hypertension, you may need to reduce your sodium intake to 1,500 mg a day. ??? Work with your provider to stay at a healthy body weight or lose weight. Ask what the best weight range is for you. ??? On most days of the week, get at least 30 minutes of exercise that causes your heart to beat faster. This may include walking, swimming, or biking. ??? Work with your provider or dietitian to adjust your eating plan to meet your specific calorie needs. What foods should I eat? Fruits All fresh, dried, or frozen fruit. Canned fruits that are in their natural juice and do not have sugar added to them. Vegetables Fresh or frozen vegetables that are raw, steamed, roasted, or grilled. Low-sodium or reduced-sodium tomato and vegetable juice. [...] Canola, safflower, olive, avocado, soybean, and sunflower oils (more content not included)... [facility] 06-21-2024 Hospital Discharge instructions Patient Education 06/21/2024 18:32:44 Hypertension, Adult Hypertension, Adult High blood pressure [...] pressure should be below 120/80. The first (top) number is called the systolic pressure. It is a measure of the pressure in your arteries as your heart beats. The second (bottom) number is called the diastolic pressure. It [...] follow-up visits. This is important. Medicines Take [id number] and prescription medicines only as told by [...] provider. Document Revised: 05/21/2022 Document Reviewed: 05/21/2022 [email or web address] Patient Education 2023 [employer]. 06/21/2024 18:32:43 DASH Eating Plan DASH Eating Plan DASH stands for Dietary Approaches to Stop Hypertension. The DASH eating plan is a healthy eating plan that has been shown to: Lower high blood pressure (hypertension). Reduce your risk for type 2 diabetes, heart disease, and stroke. Help with weight loss. What are tips for following this plan? Reading food labels Check food labels for the amount of salt (sodium) per serving. Choose foods with less than 5 percent of the Daily Value (DV) of sodium. In general, foods with less than 300 milligrams (mg) of sodium per serving fit into this eating plan. To find whole grains, look for the word whole as the first word in the ingredient list. Shopping Buy products labeled as low-sodium or no salt added. Buy fresh foods. Avoid canned foods and pre-made or frozen meals. Cooking Try not to add salt when you cook. Use salt-free seasonings or herbs instead of table salt or sea salt. Check with your health care provider or pharmacist before using salt substitutes. Do not parsons foods. Cook foods in healthy ways, such as baking, boiling, grilling, roasting, or broiling. Cook using oils that are good for your heart. These include olive, canola, avocado, soybean, and sunflower oil. Meal planning Eat a balanced diet. This should include: ?4 or more servings of fruits and 4 or more servings of vegetables each day. Try to fill half of your plate with fruits and vegetables. ?6 8 servings of whole grains each day. ?6 or less servings of lean meat, poultry, or fish each day. 1 oz is 1 serving. A 3 oz (85 g) serving of meat is about the same size as the palm of your hand. One egg is 1 oz (28 g). ?2 3 servings [...] is high in trans fat, such as fried foods. ?Food that is high in [...] Lifestyle When eating at a restaurant, ask if your food can be made with less salt or no salt. If you drink alcohol: ?Limit how much you have to: ?0 1 drink a day if you are female. ?0 2 drinks a day if you are male. ?Know how much alcohol is in your drink. In the [place] one drink is one 12 oz bottle of beer (355 mL), one 5 oz glass of wine (148 mL), or one 1 oz glass of hard liquor (44 mL). General information Avoid eating more than 2,300 mg of salt a day. If you have hypertension, you may need to reduce your sodium intake to 1,500 mg a day. Work with your provider to stay at a healthy body weight or lose weight. Ask what the best weight range is for you. On most days of the week, get at least 30 minutes of exercise that causes your heart to beat faster. This may include walking, swimming, or biking. Work with your provider or dietitian to adjust your eating plan to meet your specific calorie needs. What foods should I eat? Fruits All fresh, dried, or frozen fruit. Canned fruits that are in their natural juice and do not have sugar added to them. Vegetables Fresh or frozen vegetables that are raw, steamed, roasted, or grilled. Low-sodium or reduced-sodium tomato and vegetable juice. [...] The items listed above may not be all the foods and drinks you can have. Talk to a dietitian to learn more. What foods should I avoid? Fruits Canned fruit in a light or heavy syrup. Fried fruit. Fruit in cream or butter sauce. Vegetables Creamed or fried vegetables. Vegetables in a cheese sauce. Regular canned vegetables that are not marked as low-sodium or reduced-sodium. Regular canned tomato sauce and paste that are not marked as low-sodium or reduced-sodium. Regular tomato and vegetable juices that are not marked as low-sodium or reduced-sodium. Pickles. Olives. Grains Baked goods made with fat, such as croissants, muffins, or some breads. Dry pasta or rice meal packs. Meats and other proteins Fatty cuts of meat. Ribs. Fried meat. Thomas. Bologna, salami, and other precooked or cured meats, such as sausages or meat loaves, that are not lean and low in sodium. Fat from the back of a pig (fatback). Bratwurst. Salted nuts and seeds. Canned beans with added salt. Canned or smoked fish. Whole eggs or egg yolks. Chicken or turkey with skin. Dairy Whole or 2% milk, cream, and [id number]. Whole or full-fat cream cheese. Whole-fat or [...] Barbecue sauce. Teriyaki sauce. Soy sauce, including reduced-sodium soy sauce. Steak sauce. Canned and packaged gravies. Fish sauce. Oyster sauce. Cocktail sauce. Store-bought horseradish. Ketchup. Mustard. Meat flavorings and tenderizers. Bouillon cubes. Hot sauces. Pre-made or packaged marinades. Pre-made or packaged taco seasonings. Relishes. Regular salad dressings. Other foods Salted popcorn and pretzels. The items listed above may not be all the foods and drinks you should avoid. Talk to a dietitian to learn more. Where to find more information National Heart, Lung, and Blood Honor (NHLBI): nhlbi.nih.gov [place] [employer] (AHA): heart.org Academy of Nutrition and Dietetics: eatright.org National Kidney Foundation (NKF): kidney.org This information is not intended to replace advice given to you by your health care provider. Make sure you discuss any questions you have with your health care provider. Document Revised: 07/31/2023 Document Reviewed: 07/31/2023 [email or web address] Patient Education 2023 [employer]. 06/21/2024 18:32:39 BMI for Adults BMI for Adults Body mass index (BMI) is a number found using a person's weight and height. BMI can help tell how much of a person's weight is made up of fat. BMI does not measure body fat directly. It is used instead of tests that directly measure body fat, which can be difficult and expensive. What are BMI measurements used for? BMI is useful to: Find out if your weight puts you at higher risk for medical problems. Help recommend changes, such as in diet and exercise. This can help you reach a healthy weight. BMI screening can be done again to see if these changes are working. How is BMI calculated? Your height and weight are measured. The BMI is found from those numbers. This can be done with [place] or metric measurements. Note that charts and online BMI calculators are available to help you find your BMI quickly and easily without doing these calculations. To calculate your BMI in [place] measurements: 1.Measure your weight in pounds (lb). 2.Multiply the number of pounds by 703. So, for an adult who weighs 150 lb, multiply that number by 703: 150 x 703, which equals 105,450. 3.Measure your height in inches. Then multiply that number by itself to get a measurement called inches squared. So, for an adult who is 70 inches tall, the inches squared measurement is 70 inches x 70 inches, which equals 4,900 inches squared. 4.Divide the total from step 2 (number of lb x 703) by the total from step 3 (inches squared): 105,450 4,900 = 21.5. This is your BMI. To calculate your BMI in metric measurements: 1.Measure your weight in kilograms (kg). For this example, the weight is 70 kg. 2.Measure your height in meters (m). Then multiply that number by itself to get a measurement called meters squared. So, for an adult who is 1.75 m tall, the meters squared measurement is 1.75 m x 1.75 m, which equals 3.1 meters squared. 3.Divide the number of kilograms (your weight) by the meters squared number. In this example: 70 3.1 = 22.6. This is your BMI. What do the results mean? BMI charts are used to see if you are underweight, normal weight, overweight, or obese. The following guidelines will be used: Underweight: BMI less than 18.5. Normal weight: BMI between 18.5 and 24.9. Overweight: BMI between 25 and 29.9. Obese: BMI of 30 or above. BMI is a tool and cannot diagnose a condition. Talk with your health care provider about what your BMI means for you. Keep these notes in mind: Weight includes fat and muscle. Someone with a muscular build, such as an athlete, may have a BMI that is higher than 24.9. In cases like these, BMI is not a correct measure of body fat. If you have a BMI of 25 or higher, your provider may need to do more testing to find out if excess body fat is the cause. BMI is measured the same way for males and females. Females usually have more body fat than males of the same height and weight. Where to find more information For more information about BMI, including tools to quickly find your BMI, go to: Centers for Disease Control and Prevention: cdc.gov [place] [employer]: heart.org National Heart, Lung, and Blood Honor: nhlbi.nih.gov This information is not intended to replace advice given to you by your health care provider. Make sure you discuss any questions you have with your health care provider. Document Revised: 04/03/2023 Document Reviewed: 03/27/2023 [email or web address] Patient Education 2023 [employer]. Follow Up Care 05/03/2024 18:07:08 With:Gino Ackerman CNP Address: [address] [place] [phone] When:Within 1 Month(s) Comments:Weight management- [place] [facility] [place] 06-21-2024 Note Patient Education Cardiovascular Hypertension, Adult High blood pressure (hypertension) is [...] pressure should be below 120/80. The first (top) number is called the systolic pressure. It is a measure of the pressure in your arteries as your heart beats. The second (bottom) number is called the diastolic pressure. It [...] risk factors are under your control, including: ??? Smoking. ??? Not getting enough exercise or physical activity. ??? Being overweight. ??? Having too much fat, sugar, calories, or salt (sodium) in your diet. ??? Drinking too much alcohol. Other risk factors include: ??? Having a personal history of heart disease, diabetes, high cholesterol, or kidney disease. ??? Stress. ??? Having a family history of high blood pressure and high cholesterol. ??? Having obstructive sleep apnea. ??? Age. The risk increases with age. What are the signs or symptoms? High blood pressure may not cause symptoms. Very high blood pressure (hypertensive crisis) may cause: ??? Headache. ??? Fast or irregular heartbeats (palpitations). ??? Shortness of breath. ??? Nosebleed. ??? Nausea and vomiting. ??? Vision changes. ??? Severe chest pain, dizziness, and seizures. How [...] risk factors, you may be asked to: ??? Return on a different day to have your blood pressure checked again. ??? Monitor your blood pressure at home for [...] your blood pressure under control and if: ??? Your systolic blood pressure is above 130. ??? Your diastolic blood pressure is above 80. Your personal target blood pressure may vary depending on your medical conditions, your age, and other factors. Follow these instructions at home: Eating and drinking ??? Eat a diet that is high in fiber and potassium, and low in sodium, added sugar, and fat. An example of this eating plan is called the DASH diet. DASH stands for Dietary Approaches to Stop Hypertension. To eat this way: ? Eat plenty of fresh fruits and vegetables. Try to fill one half of your plate at each meal with fruits and vegetables. ? Eat whole grains, such as whole-wheat pasta, brown rice, or whole-grain bread. Fill about one fourth of your plate with whole grains. ? Eat or drink low-fat dairy products, such as skim milk or low-fat yogurt. ? Avoid fatty cuts of meat, processed or cured meats, and poultry with skin. Fill about one fourth of your plate with lean proteins, such as fish, chicken without skin, beans, eggs, or tofu. ? Avoid pre-made and processed foods. These tend to be higher in sodium, added sugar, and fat. ??? Reduce your daily sodium intake. Many people with hypertension should eat less than 1,500 mg of sodium a day. ??? Do not drink alcohol if: ? Your health care provider tells you not to drink. ? You are , may be , or are planning to become . ??? If you drink alcohol: ? Limit how much you have to: ? 0?1 drink a day for women. ? 0?2 drinks a day for men. ? Know how much alcohol is in your drink. In the [place] one drink equals one 12 oz bottle (more content not included)... [facility] 05-03-2024 Hospital Discharge instructions Patient Education 05/03/2024 17:37:50 Hypertension, Adult Hypertension, Adult High blood pressure [...] pressure should be below 120/80. The first (top) number is called the systolic pressure. It is a measure of the pressure in your arteries as your heart beats. The second (bottom) number is called the diastolic pressure. It [...] follow-up visits. This is important. Medicines Take tugw-gsk-hmxuqld and prescription medicines only as told by [...] provider. Document Revised: 05/21/2022 Document Reviewed: 05/21/2022 [email or web address] Patient Education 2023 [employer]. 05/03/2024 17:37:49 DASH Eating Plan DASH Eating Plan DASH stands for Dietary Approaches to Stop Hypertension. The DASH eating plan is a healthy eating plan that has been shown to: Lower high blood pressure (hypertension). Reduce your risk for type 2 diabetes, heart disease, and stroke. Help with weight loss. What are tips for following this plan? Reading food labels Check food labels for the amount of salt (sodium) per serving. Choose foods with less than 5 percent of the Daily Value (DV) of sodium. In general, foods with less than 300 milligrams (mg) of sodium per serving fit into this eating plan. To find whole grains, look for the word whole as the first word in the ingredient list. Shopping Buy products labeled as low-sodium or no salt added. Buy fresh foods. Avoid canned foods and pre-made or frozen meals. Cooking Try not to add salt when you cook. Use salt-free seasonings or herbs instead of table salt or sea salt. Check with your health care provider or pharmacist before using salt substitutes. Do not parsons foods. Cook foods in healthy ways, such as baking, boiling, grilling, roasting, or broiling. Cook using oils that are good for your heart. These include olive, canola, avocado, soybean, and sunflower oil. Meal planning Eat a balanced diet. This should include: ?4 or more servings of fruits and 4 or more servings of vegetables each day. Try to fill half of your plate with fruits and vegetables. ?6 8 servings of whole grains each day. ?6 or less servings of lean meat, poultry, or fish each day. 1 oz is 1 serving. A 3 oz (85 g) serving of meat is about the same size as the palm of your hand. One egg is 1 oz (28 g). ?2 3 servings [...] is high in trans fat, such as fried foods. ?Food that is high in [...] Lifestyle When eating at a restaurant, ask if your food can be made with less salt or no salt. If you drink alcohol: ?Limit how much you have to: ?0 1 drink a day if you are female. ?0 2 drinks a day if you are male. ?Know how much alcohol is in your drink. In the [place] one drink is one 12 oz bottle of beer (355 mL), one 5 oz glass of wine (148 mL), or one 1 oz glass of hard liquor (44 mL). General information Avoid eating more than 2,300 mg of salt a day. If you have hypertension, you may need to reduce your sodium intake to 1,500 mg a day. Work with your provider to stay at a healthy body weight or lose weight. Ask what the best weight range is for you. On most days of the week, get at least 30 minutes of exercise that causes your heart to beat faster. This may include walking, swimming, or biking. Work with your provider or dietitian to adjust your eating plan to meet your specific calorie needs. What foods should I eat? Fruits All fresh, dried, or frozen fruit. Canned fruits that are in their natural juice and do not have sugar added to them. Vegetables Fresh or frozen vegetables that are raw, steamed, roasted, or grilled. Low-sodium or reduced-sodium tomato and vegetable juice. [...] The items listed above may not be all the foods and drinks you can have. Talk to a dietitian to learn more. What foods should I avoid? Fruits Canned fruit in a light or heavy syrup. Fried fruit. Fruit in cream or butter sauce. Vegetables Creamed or fried vegetables. Vegetables in a cheese sauce. Regular canned vegetables that are not marked as low-sodium or reduced-sodium. Regular canned tomato sauce and paste that are not marked as low-sodium or reduced-sodium. Regular tomato and vegetable juices that are not marked as low-sodium or reduced-sodium. Pickles. Olives. Grains Baked goods made with fat, such as croissants, muffins, or some breads. Dry pasta or rice meal packs. Meats and other proteins Fatty cuts of meat. Ribs. Fried meat. Thomas. Bologna, salami, and other precooked or cured meats, such as sausages or meat loaves, that are not lean and low in sodium. Fat from the back of a pig (fatback). Bratwurst. Salted nuts and seeds. Canned beans with added salt. Canned or smoked fish. Whole eggs or egg yolks. Chicken or turkey with skin. Dairy Whole or 2% milk, cream, and [id number]. Whole or full-fat cream cheese. Whole-fat or [...] Barbecue sauce. Teriyaki sauce. Soy sauce, including reduced-sodium soy sauce. Steak sauce. Canned and packaged gravies. Fish sauce. Oyster sauce. Cocktail sauce. Store-bought horseradish. Ketchup. Mustard. Meat flavorings and tenderizers. Bouillon cubes. Hot sauces. Pre-made or packaged marinades. Pre-made or packaged taco seasonings. Relishes. Regular salad dressings. Other foods Salted popcorn and pretzels. The items listed above may not be all the foods and drinks you should avoid. Talk to a dietitian to learn more. Where to find more information National Heart, Lung, and Blood Honor (NHLBI): nhlbi.nih.gov [place] [employer] (AHA): heart.org Academy of Nutrition and Dietetics: eatright.org National Kidney Foundation (NKF): kidney.org This information is not intended to replace advice given to you by your health care provider. Make sure you discuss any questions you have with your health care provider. Document Revised: 07/31/2023 Document Reviewed: 07/31/2023 [email or web address] Patient Education 2023 [employer]. 05/03/2024 17:37:48 BMI for Adults BMI for Adults Body mass index (BMI) is a number found using a person's weight and height. BMI can help tell how much of a person's weight is made up of fat. BMI does not measure body fat directly. It is used instead of tests that directly measure body fat, which can be difficult and expensive. What are BMI measurements used for? BMI is useful to: Find out if your weight puts you at higher risk for medical problems. Help recommend changes, such as in diet and exercise. This can help you reach a healthy weight. BMI screening can be done again to see if these changes are working. How is BMI calculated? Your height and weight are measured. The BMI is found from those numbers. This can be done with [place] or metric measurements. Note that charts and online BMI calculators are available to help you find your BMI quickly and easily without doing these calculations. To calculate your BMI in [place] measurements: 1.Measure your weight in pounds (lb). 2.Multiply the number of pounds by 703. So, for an adult who weighs 150 lb, multiply that number by 703: 150 x 703, which equals 105,450. 3.Measure your height in inches. Then multiply that number by itself to get a measurement called inches squared. So, for an adult who is 70 inches tall, the inches squared measurement is 70 inches x 70 inches, which equals 4,900 inches squared. 4.Divide the total from step 2 (number of lb x 703) by the total from step 3 (inches squared): 105,450 4,900 = 21.5. This is your BMI. To calculate your BMI in metric measurements: 1.Measure your weight in kilograms (kg). For this example, the weight is 70 kg. 2.Measure your height in meters (m). Then multiply that number by itself to get a measurement called meters squared. So, for an adult who is 1.75 m tall, the meters squared measurement is 1.75 m x 1.75 m, which equals 3.1 meters squared. 3.Divide the number of kilograms (your weight) by the meters squared number. In this example: 70 3.1 = 22.6. This is your BMI. What do the results mean? BMI charts are used to see if you are underweight, normal weight, overweight, or obese. The following guidelines will be used: Underweight: BMI less than 18.5. Normal weight: BMI between 18.5 and 24.9. Overweight: BMI between 25 and 29.9. Obese: BMI of 30 or above. BMI is a tool and cannot diagnose a condition. Talk with your health care provider about what your BMI means for you. Keep these notes in mind: Weight includes fat and muscle. Someone with a muscular build, such as an athlete, may have a BMI that is higher than 24.9. In cases like these, BMI is not a correct measure of body fat. If you have a BMI of 25 or higher, your provider may need to do more testing to find out if excess body fat is the cause. BMI is measured the same way for males and females. Females usually have more body fat than males of the same height and weight. Where to find more information For more information about BMI, including tools to quickly find your BMI, go to: Centers for Disease Control and Prevention: cdc.gov [place] [employer]: heart.org National Heart, Lung, and Blood Honor: nhlbi.nih.gov This information is not intended to replace advice given to you by your health care provider. Make sure you discuss any questions you have with your health care provider. Document Revised: 04/03/2023 Document Reviewed: 03/27/2023 [email or web address] Patient Education 2023 [employer]. Follow Up Care 03/15/2024 17:13:56 With:Gino Ackerman CNP Address: [address] [place] [phone] When:Within 6 Week(s) Comments:Weight management- 06-21-24 620- zzz baldev [facility] [place] 05-03-2024 Note Patient Education Cardiovascular Hypertension, Adult High blood pressure (hypertension) is [...] pressure should be below 120/80. The first (top) number is called the systolic pressure. It is a measure of the pressure in your arteries as your heart beats. The second (bottom) number is called the diastolic pressure. It [...] risk factors are under your control, including: ? Smoking. ? Not getting enough exercise or physical activity. ? Being overweight. ? Having too much fat, sugar, calories, or salt (sodium) in your diet. ? Drinking too much alcohol. Other risk factors include: ? Having a personal history of heart disease, diabetes, high cholesterol, or kidney disease. ? Stress. ? Having a family history of high blood pressure and high cholesterol. ? Having obstructive sleep apnea. ? Age. The risk increases with age. What are the signs or symptoms? High blood pressure may not cause symptoms. Very high blood pressure (hypertensive crisis) may cause: ? Headache. ? Fast or irregular heartbeats (palpitations). ? Shortness of breath. ? Nosebleed. ? Nausea and vomiting. ? Vision changes. ? Severe chest pain, dizziness, and seizures. How [...] risk factors, you may be asked to: ? Return on a different day to have your blood pressure checked again. ? Monitor your blood pressure at home for [...] your blood pressure under control and if: ? Your systolic blood pressure is above 130. ? Your diastolic blood pressure is above 80. Your personal target blood pressure may vary depending on your medical conditions, your age, and other factors. Follow these instructions at home: Eating and drinking ? Eat a diet that is high in fiber and potassium, and low in sodium, added sugar, and fat. An example of this eating plan is called the DASH diet. DASH stands for Dietary Approaches to Stop Hypertension. To eat this way: ? Eat plenty of fresh fruits and vegetables. Try to fill one half of your plate at each meal with fruits and vegetables. ? Eat whole grains, such as whole-wheat pasta, brown rice, or whole-grain bread. Fill about one fourth of your plate with whole grains. ? Eat or drink low-fat dairy products, such as skim milk or low-fat yogurt. ? Avoid fatty cuts of meat, processed or cured meats, and poultry with skin. Fill about one fourth of your plate with lean proteins, such as fish, chicken without skin, beans, eggs, or tofu. ? Avoid pre-made and processed foods. These tend to be higher in sodium, added sugar, and fat. ? Reduce your daily sodium intake. Many people with hypertension should eat less than 1,500 mg of sodium a day. ? Do not drink alcohol if: ? Your health care provider tells you not to drink. ? You are , may be , or are planning to become . ? If you drink alcohol: ? Limit how much you have to: ? 0?1 drink a day for women. ? 0?2 drinks a day for men. ? Know how much alcohol is in your drink. In the [place] one drink equals one 12 oz bottle of beer (355 mL), one 5 oz glass of wine (148 mL), (more content not included)... [facility] 02-16-2024 Hospital Discharge instructions Follow Up Care 02/16/2024 17:06:27 With:Gino Ackerman CNP Address: [address] [place] [address] [phone] When:Within 1 Month(s) Comments:[id number] [place] [facility] Discharge instructions Patient Education 02/16/2024 16:28:59 DASH Eating Plan DASH Eating Plan DASH [...] Dairy Whole or 2% milk, cream, and [id number]. Whole or full-fat cream cheese. Whole-fat or [...] more information National Heart, Lung, and Blood Honor: www.nhlbi.nih.gov [place] [employer]: www.heart.org Academy of Nutrition and [...] provider. Document Revised: 06/16/2020 Document Reviewed: 06/16/2020 [email or web address] Patient Education 2022 [employer]. 02/16/2024 16:28:58 BMI for Adults BMI for Adults What [...] numbers. This can be done either in [place] ([place] or metric measurements. Note that charts and online BMI calculators are available to help you find your BMI quickly and easily without having to do these calculations yourself. To calculate your BMI in [place] ([place] measurements: 1.Measure your weight in pounds [...] Centers for Disease Control and Prevention: www.cdc.gov [place] [employer]: www.heart.org National Heart, Lung, and Blood Honor: www.nhlbi.nih.gov Summary Body mass index (BMI) is a number that is calculated from a person's weight and height. BMI may help estimate how much of a person's weight is composed of fat. BMI can help identify those who may be at higher risk for certain medical problems. BMI can be measured using [place] measurements or metric measurements. BMI charts are used to identify whether you are underweight, normal weight, overweight, or obese. This information is not intended to replace advice given to you by your health care provider. Make sure you discuss any questions you have with your health care provider. Document Revised: 04/05/2020 Document Reviewed: 02/11/2020 [email or web address] Patient Education 2022 [employer]. Follow Up Care 01/19/2024 19:08:30 With:Gino Ackerman CNP Address: [address] [place] [phone]- [phone] When:Within 1 Month(s) Comments:weight management and review jaspal de paz [facility] [place] 02-16-2024 Note Patient Education Nutrition DASH Eating Plan DASH stands for Dietary Approaches to Stop Hypertension. The DASH eating plan is a healthy eating plan that has been shown to: ? Reduce high blood pressure (hypertension). ? Reduce your risk for type 2 diabetes, heart disease, and stroke. ? Help with weight loss. What are tips for following this plan? Reading food labels ? Check food labels for the amount of salt (sodium) per serving. Choose foods with less than 5 percent of the Daily Value of sodium. Generally, foods with less than 300 milligrams (mg) of sodium per serving fit into this eating plan. ? To find whole grains, look for the word whole as the first word in the ingredient list. Shopping ? Buy products labeled as low-sodium or no salt added. ? Buy fresh foods. Avoid canned foods and pre-made or frozen meals. Cooking ? Avoid adding salt when cooking. Use salt-free seasonings or herbs instead of table salt or sea salt. Check with your health care provider or pharmacist before using salt substitutes. ? Do not parsons foods. Cook foods using healthy methods such as baking, boiling, grilling, roasting, and broiling instead. ? Cook with heart-healthy oils, such as olive, canola, avocado, soybean, or sunflower oil. Meal planning ? Eat a balanced diet that includes: ? 4 or more servings of fruits and 4 or more servings of vegetables each day. Try to fill one-half of your plate with fruits and vegetables. ? 6?8 servings of whole grains each day. ? Less than 6 oz (170 g) of lean meat, poultry, or fish each day. A 3-oz (85-g) serving of meat is about the same size as a deck of cards. One egg equals 1 oz (28 g). ? 2?3 servings of low-fat dairy each day. One serving is 1 cup (237 mL). ? 1 serving of nuts, seeds, or beans 5 times each week. ? 2?3 servings of heart-healthy fats. Healthy fats called omega-3 fatty acids are found in foods such as walnuts, flaxseeds, fortified milks, and eggs. These fats are also found in cold-water fish, such as sardines, salmon, and mackerel. ? Limit how much you eat of: ? Canned or prepackaged foods. ? Food that is high in trans fat, such as some fried foods. ? Food that is high in saturated fat, such as fatty meat. ? Desserts and other sweets, sugary drinks, and other foods with added sugar. ? Full-fat dairy products. ? Do not salt foods before eating. ? Do not eat more than 4 egg yolks a week. ? Try to eat at least 2 vegetarian meals a week. ? Eat more home-cooked food and less restaurant, buffet, and fast food. Lifestyle ? When eating at a restaurant, ask that your food be prepared with less salt or no salt, if possible. ? If you drink alcohol: ? Limit how much you use to: ? 0?1 drink a day for women who are not . ? 0?2 drinks a day for men. ? Be aware of how much alcohol is in your drink. In the [place] one drink equals one 12 oz bottle of beer (355 mL), one 5 oz glass of wine (148 mL), or one 1? oz glass of hard liquor (44 mL). General information ? Avoid eating more than 2,300 mg of salt a day. If you have hypertension, you may need to reduce your sodium intake to 1,500 mg a day. ? Work with your health care provider to maintain a healthy body weight or to lose weight. Ask what an ideal weight is for you. ? Get at least 30 minutes of exercise that causes your heart to beat faster (aerobic exercise) most days of the week. Activities may include walking, swimming, or biking. ? Work with your health care provider or [...] and sunflower oils. Avocado. Seasonings and condiments He (more content not included)... [facility] 01-19-2024 Hospital Discharge instructions Patient Education 01/19/2024 18:21:12 Hypertension, Adult Hypertension, Adult High blood pressure [...] pressure should be below 120/80. The first (top) number is called the systolic pressure. It is a measure of the pressure in your arteries as your heart beats. The second (bottom) number is called the diastolic pressure. It [...] follow-up visits. This is important. Medicines Take xyck-mlx-nnifgvt and prescription medicines only as told by [...] provider. Document Revised: 05/21/2022 Document Reviewed: 05/21/2022 [email or web address] Patient Education 2022 [employer]. 01/19/2024 18:21:11 DASH Eating Plan DASH Eating Plan DASH [...] Dairy Whole or 2% milk, cream, and fgep-[id number]. Whole or full-fat cream cheese. Whole-fat or [...] more information National Heart, Lung, and Blood Honor: www.nhlbi.nih.gov [place] [employer]: www.heart.org Academy of Nutrition and [...] provider. Document Revised: 06/16/2020 Document Reviewed: 06/16/2020 [email or web address] Patient Education 2022 [employer]. 01/19/2024 18:21:10 BMI for Adults BMI for Adults What [...] numbers. This can be done either in [place] ([place] or metric measurements. Note that charts and online BMI calculators are available to help you find your BMI quickly and easily without having to do these calculations yourself. To calculate your BMI in [place] ([place] measurements: 1.Measure your weight in pounds [...] Centers for Disease Control and Prevention: www.cdc.gov [place] [employer]: www.heart.org National Heart, Lung, and Blood Honor: www.nhlbi.nih.gov Summary Body mass index (BMI) is a number that is calculated from a person's weight and height. BMI may help estimate how much of a person's weight is composed of fat. BMI can help identify those who may be at higher risk for certain medical problems. BMI can be measured using [place] measurements or metric measurements. BMI charts are used to identify whether you are underweight, normal weight, overweight, or obese. This information is not intended to replace advice given to you by your health care provider. Make sure you discuss any questions you have with your health care provider. Document Revised: 04/05/2020 Document Reviewed: 02/11/2020 [email or web address] Patient Education 2022 [employer]. Follow Up Care 12/15/2023 18:38:18 With:Gino Ackerman CNP Address: [address] [place] [address] [phone] When:Within 1 Month(s) Comments:weight managementreview labszzz [facility] 11-10-2023 Hospital Discharge instructions Follow Up Care 11/10/2023 16:39:01 With:Gino Ackerman CNP Address: [address] [place] [address] [phone] When:Within 1 Month(s) Comments:weight [id number] at 620zzz [facility] 10-06-2023 Hospital Discharge instructions Follow Up Care 10/06/2023 18:48:26 With:Gino Ackerman CNP Address: [address] [place] [address] [phone] When:Within 1 Month(s) Comments:weight [id number] at 1700zzz [facility] 10-06-2023 Hospital Discharge instructions Patient Education 10/06/2023 [...] Dairy Whole or 2% milk, cream, and nzli-tbe-oaeh. Whole or full-fat cream cheese. Whole-fat or [...] more information National Heart, Lung, and Blood Honor: www.nhlbi.nih.gov [place] [employer]: www.heart.org Academy of Nutrition and [...] provider. Document Revised: 06/16/2020 Document Reviewed: 06/16/2020 [email or web address] Patient Education 2022 [email or web address] 10/06/2023 18:19:37 BMI for Adults BMI for [...] numbers. This can be done either in [place] ([place] or metric measurements. Note that charts and online BMI calculators are available to help you find your BMI quickly and easily without having to do these calculations yourself. To calculate your BMI in [place] ([place] measurements: 1.Measure your weight in pounds [...] Centers for Disease Control and Prevention: www.cdc.gov [place] [employer]: www.heart.org National Heart, Lung, and Blood Honor: www.nhlbi.nih.gov Summary Body mass index (BMI) is a number that is calculated from a person's weight and height. BMI may help estimate how much of a person's weight is composed of fat. BMI can help identify those who may be at higher risk for certain medical problems. BMI can be measured using [place] measurements or metric measurements. BMI charts are used to identify whether you are underweight, normal weight, overweight, or obese. This information is not intended to replace advice given to you by your health care provider. Make sure you discuss any questions you have with your health care provider. Document Revised: 04/05/2020 Document Reviewed: 02/11/2020 [email or web address] Patient Education 2022 [employer]. 10/06/2023 18:19:36 Hypertension, Adult Hypertension, Adult High [...] pressure should be below 120/80. The first (top) number is called the systolic pressure. It is a measure of the pressure in your arteries as your heart beats. The second (bottom) number is called the diastolic pressure. It [...] follow-up visits. This is important. Medicines Take jsow-zdl-kljgsxg and prescription medicines only as told by [...] provider. Document Revised: 05/21/2022 Document Reviewed: 05/21/2022 [email or web address] Patient Education 2022 [email or web address] Follow Up Care 08/19/2023 16:25:05 With:Gino Ackerman CNP Address: [address] [place] [phone]- [phone] When:Within 1 Month(s) Comments:chronic check- review labs and weight managementblanco [place] 15 4pm [facility] [place] 04-04-2023 Note HNO ID: [id number] Author: Raoul Brtio MD Service: ? Author Type: Physician Type: [...] Laser in situ keratomileusis surgery Sphere Cylinder [place] Right -8.75 +0.50 001 Left -8.75 +0.50 036 Type: SVL Raoul Brito MD I have confirmed and edited as necessary the relevant ophthalmic history, review of systems, surgical history, and ophthalmological examination findings as obtained by the ophthalmic technical staff. I have seen and examined Timmy Hinds. I have discussed the examination findings, diagnosis, and treatment options with Timmy Hinds and/or his family. I have also reviewed and agree with the assessment and plan as stated above and agree with all its relevant components. I gave the patient the opportunity to ask questions about the findings, diagnosis, and treatment options. [facility] 04-02-2023 Note HNO ID: [id number] Author: Raoul Brito MD Service: ? Author Type: Physician Type: [...] Laser in situ keratomileusis surgery Sphere Cylinder [place] Right -8.75 +0.50 001 Left -8.75 +0.50 036 Type: ARSENIO Brito MD I have confirmed and edited as necessary the relevant ophthalmic history, review of systems, surgical history, and ophthalmological examination findings as obtained by the ophthalmic technical staff. I have seen and examined Timmy Hinds. I have discussed the examination findings, diagnosis, and treatment options with Timmy Hinds and/or his family. I have also reviewed and agree with the assessment and plan as stated above and agree with all its relevant components. I gave the patient the opportunity to ask questions about the findings, diagnosis, and treatment options. [facility] 04-02-2023 History of Present illness [...] Laser in situ keratomileusis surgery Sphere Cylinder [place] Right -8.75 +0.50 001 Left -8.75 +0.50 036 Type: ARSENIO Brito MD I have confirmed and edited as necessary the relevant ophthalmic history, review of systems, surgical history, and ophthalmological examination findings as obtained by the ophthalmic technical staff. I have seen and examined Timmy Hinds. I have discussed the examination findings, diagnosis, and treatment options with Timmy Hinds and/or his family. I have also reviewed and agree with the assessment and plan as stated above and agree with all its relevant components. I gave the patient the opportunity to ask questions about the findings, diagnosis, and treatment options. documented in this encounter [facility] 01-13-2023 Hospital Discharge instructions Patient Education 01/13/2023 18:37:23 Type 2 Diabetes Mellitus, Diagnosis, Adult, Hcdt-ml-Pnoj Type 2 Diabetes Mellitus, Diagnosis, Adult Type [...] your doctor Should I meet with a consumer educator? What medicines do I need, and when should I take them? What will I need to treat my condition at home? When should I check my blood sugar? Where can I find a support group? Who can I call if I have questions? When is my next doctor visit? General instructions Take lkoc-yhj-ykmrdsc and prescription medicines only as told by your doctor. Keep all follow-up visits. Where to find more information For help and guidance and more information about diabetes, please go to: [place] [employer] (ADA): www.diabetes.org [place] [employer] and Education Specialists [...] provider. Document Revised: 10/08/2021 Document Reviewed: 10/08/2021 [email or web address] Patient Education 2022 [employer]. Follow Up Care 12/31/2022 09:19:37 With:Gino Ackerman CNP Address: [address] [place] [phone]- [phone] When:Within 1 Month(s) Comments:HTN medication review [facility] 12-26-2022 Hospital Discharge instructions Follow Up Care 12/26/2022 08:57:18 With:Gino Ackerman CNP Address: [address] [place] [phone]- [phone] When:Within 1 Month(s) Comments:physical and review labs-zzz time [facility] Evaluation + Plan note Future Appointments Appointment Date:01/13/2023 06:20:00 PM Scheduled Provider:Gino Ackerman CNP Location:[facility] Appointment Type:FM Open Diagnostic Tests PendingCBC w/ Auto Diff 12/31/22Comprehensive Metabolic Panel 12/31/2254LwiT4k 12/31/22Lipid Panel 12/31/22Thyroid Stimulating Hormone 12/31/22Free T4 12/31/22PSA Screen, Total 12/31/22Insulin Level Total 12/31/22 Future Scheduled TestsInsulin Level Total 12/31/22 [facility] Evaluation + Plan note Future Appointments Appointment Date:02/17/2023 06:20:00 PM Scheduled Provider:Gino Ackerman CNP Location:[facility] Appointment Type:FM Open Future Scheduled TestsInsulin Level Total 12/31/22 [facility] Evaluation + Plan note Future Appointments Appointment Date:11/10/2023 04:00:00 PM Scheduled Provider:Gino Ackerman CNP Location:[facility] Appointment Type:FM Open Diagnostic Tests PendingCBC w/ Auto Diff 10/06/23Comprehensive Metabolic Panel 10/06/2349WogT2g 10/06/23Lipid Panel 10/06/23PSA Total 10/06/23 Future Scheduled TestsInsulin Level Total 12/31/22 [facility] Evaluation + Plan note Future Appointments Appointment Date:12/01/2023 07:00:00 AM Scheduled Provider:Gino Ackerman CNP Location:[facility] Appointment Type:FM Open Diagnostic Tests PendingCBC w/ Auto Diff 11/10/23Comprehensive Metabolic Panel [id number] 11/10/23Lipid Panel 11/10/23 Future Scheduled TestsInsulin Level Total 12/31/22 [facility] Evaluation + Plan note Future Appointments Appointment Date:01/19/2024 06:20:00 PM Scheduled Provider:Gino Ackerman CNP Location:[facility] Appointment Type: Open Future Scheduled TestsInsulin Level Total 12/31/22 [facility] Evaluation + Plan note Future Appointments Appointment Date:02/16/2024 04:00:00 PM Scheduled Provider:Gino Ackerman CNP Location:[facility] Appointment Type:FM Open Diagnostic Tests PendingCBC w/ Auto Diff 01/19/24Comprehensive Metabolic Panel 01/18/83KfeI1b 01/19/24Lipid Panel 01/19/24PSA Free & Total 01/19/24 Future Scheduled TestsPSA Free & Total 01/19/24 [facility] Evaluation + Plan note Future Appointments Appointment Date:03/15/2024 04:00:00 PM Scheduled Provider:Gino Ackerman CNP Location:[facility] Appointment Type:FM Open Future Scheduled TestsPSA Free & Total 01/19/24 [facility] Evaluation + Plan note Future Appointments Appointment Date:04/13/2024 07:00:00 AM Scheduled Provider:Gino Ackerman CNP Location:[facility] Appointment Type:FM Open Future Scheduled TestsPSA Free & Total 01/19/24 [facility] Evaluation + Plan note Future Appointments Appointment Date:06/21/2024 06:20:00 PM Scheduled Provider:Gino Ackerman CNP Location:[facility] Appointment Type:FM Open Future Scheduled TestsPSA Free & Total 01/19/24 [facility] Evaluation + Plan note Future Appointments Appointment Date:07/26/2024 04:40:00 PM Scheduled Provider:Gino Ackerman CNP Location:[facility] Appointment Type:FM Open Appointment Date:08/23/2024 05:00:00 PM Scheduled Provider:Gino Ackerman CNP Location:[facility] Appointment Type:FM Open Future Scheduled TestsPSA Free & Total 01/19/24 [facility] Evaluation + Plan note Future Appointments Appointment Date:07/26/2024 04:40:00 PM Scheduled Provider:Gino Ackerman CNP Location:[facility] Appointment Type:FM Open Appointment Date:08/23/2024 05:00:00 PM Scheduled Provider:Gino Ackerman CNP Location:[facility] Appointment Type:FM Open Diagnostic Tests PendingUrine Culture 06/21/24 Future Scheduled TestsPSA Free & Total 01/19/24 [facility] Evaluation + Plan note Future Appointments Appointment Date:08/03/2024 02:40:00 PM Scheduled Provider:BRODIE PATEL MD [facility] Appointment Type:URO New Patient Appointment Date:08/23/2024 05:00:00 PM Scheduled Provider:Gino Ackerman CNP Location:[facility] Appointment Type:FM Open Future Scheduled TestsPSA Free & Total 01/19/24 [facility] Evaluation + Plan note Future Appointments Appointment Date:11/15/2024 05:00:00 PM Scheduled Provider:Gino Ackerman CNP Location:[facility] Appointment Type: Open Future Scheduled TestsPSA Free & Total 01/19/24 [facility] Evaluation note No assessment inform ation available [facility] Work Phone: Evaluation note Diagnosis Foreign body of right cornea, initial encounter- Primary High myopia, both eyes Myopia Hx of LASIK Other states following surgery of eye and adnexa documented in this encounter [facility] course Narrative No data available for this section [facility] Hospital Discharge instructions No data available for this section [facility] Progress note No data available for this section [facility] Reason for referral (narrative) , [facility]- Referred by: Gino Ackerman CNP [facility] Regehe for referral (narrative) , [place] [address] Referred by: Gino Ackerman CNP [facility] Summary Purpose Family History No Family History Records FoundNo Family History Records Found No data available for this section No data available for this section No data available for this section No data available for this section No data available for this section No data available for this section No data available for this section No data available for this section No data available for this section No Family History Records FoundNo Family History Records Found No data available for this section No data available for this section No Family History Records FoundNo Family History Records FoundNo Family History Records Found Advance Directives No Advanced Directives Records FoundNo Advanced Directives Records FoundNo Advanced Directives Records FoundNo Advanced Directives Records FoundNo Advanced Directives Records FoundNo Advanced Directives Records FoundNo Advanced Directives Records Found Additional Source Comments Patient Care team informatio n (unrecognized section and content) Team Status: Active Member Role Status Dates GINO ACKERMAN Family Provider Active Gino Ackerman MINE PATROL, MINE PATROL-C Primary Care Provider Active Team Status: Inactive Member Role Status Dates Gino Ackerman MINE PATROL, MINE PATROL-C Primary Care Prov ider, Attending Provider, Referring Provider Active Scientific Programmer Relationship Specialty Start Date End Date Gino Ackerman CNP PCP - General Internal Medicine 09/23/20 Goals (unrecognized section and content) Goals may be documented in a n alternate section (unrecognized sect ion and content) No Status Records FoundNo Status Records FoundNo Status Records FoundNo Status Records FoundNo Status Records FoundNo Status Records FoundNo Status Records Found INFORMATION SOURCE (unrecogn ized section and content) DATE CREATED AUTHOR 02/19/2023 [facility] DATE CREATED AUTHOR AUTHOR'S ORGANIZ ATION 04/06/2023 [facility] DATE CREATED AUTHOR AUTHOR'S ORGANIZ ATION 06/25/2024 [place] [facility] DATE CREATED AUTHOR AUTHOR'S ORGANIZ ATION 06/26/2024 [place] [facility] DATE CREATED AUTHOR AUTHOR'S ORGANIZ ATION 08/27/2024 [facility] DATE CREATED AUTHOR AUTHOR'S ORGANIZ ATION 10/01/2024 [facility] DATE CREATED AUTHOR AUTHOR'S ORGANIZ ATION 11/16/2024 [facility] Source Comments (unrecognize d section and content) In the event this informatio n is protected by the Federal Confidentiality of Alcohol and Drug Abuse Patient Records regulations: The Federal rules restrict any use of the information to criminally investigate or prosecute any alcohol or drug abuse patient.[facility] Reason for Visit (unrecogniz ed section and content) Reason Comments Foreign Body Right Eye X 3 days Tearing Right Eye X 3 days Red Eye Right Eye X 3 days FOR RECORDS PERTAINING TO PATIENTS WHO ARE [...] BE BASED ON THE PRIMARY CLINICAL RECORDS. [facility]. provides no warranty or guarantee of the accuracy or completeness of information in this document.
[2025-01-15 07:37] LABS: Absolute Lymphocyte Count 1.85 X10^3/uL (0.83-4.51); Absolute Neutrophil Count 3.7 X10^3/uL (2.0-7.7); Basophil# 0.04 X10^3/uL; Basophil% 0.6 % (0-1); Eosinophil# 0.11 X10^3/uL; Eosinophils% 1.8 % (0-5); Hematocrit 43.4 % (40-54); Hemoglobin 14.8 g/dL (13.0-16.5); Lymphocyte # 1.85 X10^3/ul (0.83-4.51); Lymphocyte % 29.6 % (19-41); Mean Corp Hgb Conc 34.1 g/dL (32-36); Mean Corpuscular Hgb 31.4 pg (27.0-32.0); Mean Corpuscular Volume 92.1 fL (80-94); Mean Platelet Vol. 9.9 fl (6.2-12.0); Monocyte# 0.57 X10^3/uL; Monocyte% 9.1 % (0-10); NRBC Flagged by Analyzer 0 % (0-5); Neutrophil # 3.67 X10^3/uL (2.7-7.7); Neutrophil % 58.6 % (47-70); Platelet Count 317 K/mm3 (150-450); RBC Distribution Width CV 11.9 % (11.6-14.6); RBC Distribution Width SD 40.1 fl (35.1-43.9); Red Blood Count 4.71 M/mm3 (4.6-6.2); White Blood Count 6.3 K/mm3 (4.4-11.0)
[2025-01-15 08:12] LABS: Hemoglobin A1c 5.7 % (<=5.6)
[2025-01-15 08:20] LABS: Cholesterol 217 mg/dL (<=200); High Density Lipoprotein 43 mg/dL; Low Density Lipoprotein Calc. 143 mg/dL; PSA,Total - Annual Screen 0.81 ng/mL (0.02-4.00); Triglycerides 158 mg/dL; Very Low Density Lipoprotein 32 mg/dL (5-40); cholesterol:hdl ratio screen 5.06
[2025-01-15 08:30] LABS: ALB/GLOB Ratio 1.6 RATIO (0.9-2.4); AST(SGOT) 22 U/L (<=37); Alanine Aminotransfer ALT/SGPT 23 U/L (<=46); Albumin, Serum 4.2 g/dL (3.5-5.0); Alkaline Phosphatase 55 U/L (40-129); Anion Gap 8 (5-15); BUN 14 mg/dL (4-19); BUN/Creat Ratio 12.9 RATIO (10-20); Calcium,Total 9.2 mg/dL (7.6-11.0); Carbon Dioxide 25.8 mmol/L (21.0-32.0); Chloride 104 mmol/L (98-108); Creatinine, Serum 1.07 mg/dL (0.70-1.20); EST Glomerular Filtration Rate 87 (>60); Globulin 2.6 g/dL (2.2-4.2); Glucose 110 mg/dL (70-99); Potassium 4.9 mmol/L (3.3-5.1); Protein, Total 6.9 g/dL (5.9-8.4); Sodium Level 138 mmol/L (133-145); Total Bilirubin 0.59 mg/dL (0.00-1.30)
== END | disposition home or self-care (01) ==
LOC: LAB 07:08
PROVIDERS: PCP Nurse Practitioner Adult Health; Referring Provider Nurse Practitioner Adult Health; Visit Provider Nurse Practitioner Adult Health
DX: Z00.00 Encounter for general adult medical examination without abnormal findings (principal); Z12.5 Encounter for screening for malignant neoplasm of prostate
CPT/HCPCS: 36415; 80053; 80061; 83036; 84153; 85025; G0103